=== PATIENT | male | born 1935 | race Caucasian/White ===

== ENCOUNTER → 2016-04-03 | Outpatient (CLI) | payer MEDICARE, OTHER ==
[2016-04-03 10:24] LABS: ALBUMIN 4.5 g/dL (3.4-5.0); ANION GAP 15.9 MEQ/L (3-15); PHOSPHORUS 3.3 mg/dL (2.4-4.9)
== END ==
LOC: LAB 09:47
PROVIDERS: ATTEND Internal Medicine
DX: R60.9 Edema, unspecified (principal)
CPT/HCPCS: 36415; 80069

== ENCOUNTER → 2016-05-01 | Outpatient (CLI) | payer MEDICARE, OTHER ==
[2016-05-01 14:38] LABS: ABG OXYGEN SATURATION 89 % (95-98); ABG PCO2 51 mmHg (35-45); ABG PH 7.49 (7.35-7.45); ABG PO2 53 mmHg (80-105); ARTERIAL BLOOD GAS DELIVERY Nasal Cannula
== END ==
LOC: RT 14:03
PROVIDERS: ATTEND Family Medicine
DX: J44.9 Chronic obstructive pulmonary disease, unspecified (principal)
CPT/HCPCS: 36600; 82803

== ENCOUNTER → 2016-06-17 | Outpatient (CLI) | payer MEDICARE, OTHER | LOC: EMS 23:01 | PROVIDERS: ATTEND Family Medicine | DX: Z53.20 Procedure and treatment not carried out because of patient's decision for unspecified reasons (principal) ==

== ENCOUNTER → 2016-07-18 | Outpatient (CLI) | payer MEDICARE, OTHER ==
[~2016-07-18] MED LIST: AC325T PO; ALB0.5V INH; ALBU2.5V12 INH; ALLO100T PO; AMOX-358 PO; ARFO15VI2 IH; ASCO500T7 PO; ASPI-586 PO; BUDE0.5A5 IH; CALC300T10 PO; CEFD300C PO; CYAN100088 PO; DOCU100T2 PO; DOXY100T41 PO; FERR-74 PO; FERR300L PO; FERR325T5 PO; FRSM20T PO; FURO-124 PO; FURO20TA4 PO; FURO40TA4 PO; GFN600TCR PO; HYDR-3702 PO; HYDR5SYR PO; HYOS0.1218 SL; IBUP-1096 PO; INDA1.25 PO; IPRA3AMP11 INH; KCL20TCR PO; LEVO500T16 PO; LEVO750T39 PO; LOPE2CAP PO; LORA0.5T PO; MAG30ORA PO; MAGN400O7 PO; MAGN400T26 PO; METH4TAB27 PO; METO50TA7 PO; MORP20SO PO; MTF500TCR PO; OLME1TAB5 PO; OLME40TA3 PO; ONDAN4ODT PO; POLYETHYLENE GL17 GM PO; POTA10CA2 PO; POTA10CA43 PO; PRD20T PO; PROM25TA14 PO; TRM50T PO
== END ==
LOC: EMS 06:45
DX: Z53.20 Procedure and treatment not carried out because of patient's decision for unspecified reasons (principal)

== ENCOUNTER → 2016-07-20 | Outpatient (CLI) | payer MEDICARE, OTHER | LOC: EMS 02:50 | DX: Z53.20 Procedure and treatment not carried out because of patient's decision for unspecified reasons (principal) ==

== ENCOUNTER 2016-07-21 17:08 | Inpatient (IN) | payer MEDICARE, OTHER ==
[~2016-07-21] VITALS: Ht 177.8 cm; Wt 73.1 kg
[~2016-07-21 17:08] MED LIST changes: -HYDR-3702 PO; -HYOS0.1218 SL; -LOPE2CAP PO; -LORA0.5T PO; -MORP20SO PO; -PROM25TA14 PO
--- NOTE | 2016-07-21 17:30 | NUR ---
notified [facility] [place] regarding care of patient. Walker stated patient elected hospice care on July 12 but was home health prior to that. She mentioned as of this morning plan was to go to [facility] for respite care for 5 days until permanent placement for end of life care could be arranged but that as of this afternoon patient and family changed mind and elected aggressive treatment and that he was therefore discharged from their care at that time. [place] stated patient has taken a steady decline, and has had an increase in falls. states sister is dpoa
--- NOTE | 2016-07-21 17:55 | NUR ---
Pt admitted to Rm 310 via cart accompanied by EMS. Resprs nonlabored, even on 4L NC. Pt groans with movements. Open sores noted on pt's buttocks approx 0.5cm in diameter. Excoriation noted under R scrotum approx 5cm x 4cm. According to ED nurse, EMS gave report to ED but pt came straight to floor. Report from ED nurse states that EMS attempted multiple IV sticks with no success. Dr Arango requested anesthesia be called as to not delay IV fluids. Campus Administrator contacted anesthesia. Upon EMS arrival, EMS states they attempted an IV site once but pt does not have many veins to choose from. Den with anesthesia here to initiate peripheral site. 20g initiated in [facility] on first attempt. Den states there aren't many other options for a site. Will continue to monitor.
[2016-07-21 18:09] VITALS: BP 117/53
[2016-07-21 18:10] VITALS: BP 117/53
[2016-07-21] MEDS ORDERED: ACETAMINOPHEN 325 MG TAB (TYLENOL) PO PRN (18:20)
[2016-07-21] MEDS ORDERED: POLYETHYLENE GLYCOL 17 GM (MIRALAX) PACKET PO PRN (18:20)
[2016-07-21] MEDS ORDERED: LOPERAMIDE 2 MG/15 ML PO PRN (18:20)
--- NOTE | 2016-07-21 18:46 | NUR ---
Dr Arango discussing plan of care with patient's two daughters who just arrived, Seema and Katlin.
--- NOTE | 2016-07-21 19:00 | NUR ---
received verbal order from Dr Shivam Arango to place central line for blood infusion, antibiotics, and fluids. a second peripheral line was unable to be placed at this time.
[2016-07-21 19:12] LABS: MEAN CORPUSCULAR HGB CONC 31.8 g/dL (31.0-37.0); MEAN PLATELET VOLUME 9.1 FL (6.0-9.5); PLATELET COUNT 679 10^3uL (150-450)
--- NOTE | 2016-07-21 19:20 | NUR ---
obtained consent from patient as well as from daughters to place central line at this time. josefina bartholomew crna notified.
[2016-07-21 19:24] LABS: ANION GAP 28.1 MEQ/L (3-15)
[2016-07-21 19:25] LABS: MEAN CORPUSCULAR HEMOGLOBIN 24.4 PG (26.0-34.0); WHITE BLOOD COUNT 38.29 10^3uL (4.0-11.0)
[2016-07-21 19:26] LABS: MEAN CORPUSCULAR VOLUME 77 FL (80-100)
[2016-07-21 19:28] LABS: ANISOCYTOSIS SLIGHT; MICROCYTOSIS SLIGHT; POLYCHROMASIA SLIGHT; RBC MORPH SEE REFERENCE (NORMAL)
[2016-07-21] MEDS: ALBUTEROL/IPRATROPIUM 3MG-0.5MG/3ML (DUONEB) NEB VIAL INH SCH (19:28)
[2016-07-21 19:29] LABS: BAND NEUTROPHILS % 12 % (0-6); EOSINOPHILS % 0 % (0-4); LYMPHOCYTES # 1.2 #; MONOCYTES # 0.8 #; MONOCYTES % 2 % (3-11); SEGMENTED NEUTROPHILS % 80 % (51-67); TOTAL CELLS COUNTED 100
[2016-07-21 19:30] VITALS: BP 108/52
--- NOTE | 2016-07-21 19:31 | NUR ---
Pt found lying in bed on 4 l/min NC, SPO2 88%, HR 60, RR 14 and mildly labored at this time. BS have clear upper lobes and diminished bases bilaterally. Duoneb given via SVN/MASK tolerated well with BS unchanged post Tx. O2 titrated to 6 l/min HFNC with humidity.
--- NOTE | 2016-07-21 20:00 | NUR ---
Pt says he needs to have a bowel movement. Pt assisted on to the bed arias.
--- NOTE | 2016-07-21 20:03 | History and Physical (E) ---
History & Physical PCP: James Ortega MD CC DEHYDRATION HPI Patient was on hospice for 2 weeks and now has left hospice.He has end stage COPD; lung cancer currently untreated;and has not been eating or drinking for several days. He is quite anemic with a current hemoglobin of 6.2. PMH Non small cell lung cancer HCAP END STAGE COPD PNEUMONIA JANUARY 2016 HYPERTENSION Gout Diabetes Mellitus Prostate Cancer PSH Lung biopsy chest tube 02/2016 right carpal tunnel surgery Forehead and eyelid surgery 10 years ago Colonoscopy ALLERGIES: NKDA HOME MEDICATIONS: Please see list at end of report. FH SH ROS CONSTITUTION: Denies weight loss or gain. Denies fever or chills. HEENT: No change in vision or hearing. No sores in mouth, sore throat. CV: No chest pain, palpitations. PULM: No cough, BUT MARKED shortness of breath, difficulty breathing. GI: No upset stomach, nausea, vomiting, constipation, or diarrhea. No blood in stool. : No dysuria. No blood in urine. MS: No new muscle or joint aches and pains. NEURO: No numbness or tingling. No weakness. INTEG: No rashes, lesions, or sores. ENDO: No heat or cold intolerance. No polydipsia or polyuria. HEME/LYMPH: No easy bruising or bleeding. No swollen glands. PSYCH: No change in mood or behavior. OBJECTIVE GEN: Awake, alert, oriented, weak HEENT: EOMI, PERRL, dry oral mucosa. CV: RRR S1 S2 normal with no murmur LUNGS: crackles in bases;not a good inspiratory effort ABD: Soft, NT/ND with hypoactive bowel sounds. EXTR: No C/C/E. Normal peripheral pulses. INTEG: No rash. NEURO: No focal motor neuro deficit. Weight: 69.3 kg LABS hgb-6.2 ;creat-4.43 ;bun 210 ;gfr -15.6 MICRO n/a IMAGING n/a ASSESSMENT Dehydration;end stage COPD;non small cell lung cancer; anemia ; acute kidney failure ;diabetes mellitus PLAN Admit to floor ;cxr;antibiotics; breathing treatments ;consider dialysis. Allergies/Home Medications Allergies: Coded Allergies: No Known Drug Allergies (Unverified , 03/24/16) Reported Home Medications Scheduled Albuterol/Ipratropium (Duoneb 3mg-0.5mg/3ml) 3 ML INH QID Allopurinol (Allopurinol) 100 MG PO BID (Reported) Amoxicillin/Clavulanate Potassium (Augmentin 875mg/125mg) 1 EACH PO BID Ascorbic Acid (Ascorbic Acid) 500 MG PO BID (Reported) Aspirin (Aspir 81) 81 MG PO DAILY (Reported) Cyanocobalamin (Vitamin B-12) (B-12) 2,000 MCG PO DAILY (Reported) Ferrous Sulfate (Ferrous Sulfate) 325 MG PO BID Furosemide (Lasix) 40 MG PO BID@0900,1400 Indapamide (Indapamide) 1.25 MG PO DAILY (Reported) Magnesium Oxide (Mag-Oxide) 400 MG PO DAILY (Reported) Metformin HCl (Metformin HCl ER) 1,000 MG PO BID (Reported) Metoprolol Succinate (Toprol XL) 50 MG PO DAILY Polyethylene Glycol 3350 (Polyethylene Glycol 3350) 17 GM PO DAILY Potassium Chloride (Klor-Con M20) 20 MEQ PO DAILY Scheduled PRN Acetaminophen (Acetaminophen) 650 MG PO Q6H PRN PRN PAIN Albuterol (Proventil 0.5%) 2.5 MG INH Q4H PRN PRN DYSPNEA Calcium Carbonate (Tums) 300 MG PO Q8H PRN PRN DYSPEPSIA Docusate Sodium (Docusate Sodium) 100 MG PO BID PRN PRN CONSTIPATION Mag Hydrox/Al Hydrox/Simeth (Mag-Al Plus -Simethicone [id number]/5ml) 30 ML PO Q6H PRN PRN DYSPEPSIA Magnesium Hydroxide (Milk of Magnesia 400mg/5ml) 30 ML PO DAILY PRN PRN CONSTIPATION Ondansetron HCl (Zofran ODT) 4 MG PO Q6HR PRN PRN NAUSEA/VOMITING Tramadol HCl (Tramadol HCl) 50 MG PO Q6H PRN PRN PAIN Copies to: End of Report . BRIAN FUENTES DO Jul 21, 2016 20:03
--- NOTE | 2016-07-21 20:05 | NUR ---
Pt has no results and would like to stand at bedside for a minute. This nurse and ADRIAN Claros assist pt to side of bed. Pt continues to strain and attempt to have a BM.
--- NOTE | 2016-07-21 20:06 | NUR ---
Pt sits down on bed and goes unresponsive. Pt laid down on bed and sternal rub performed. Pt opens eyes, looks around blankly. Follows the sound of my voice when his name is called. BP119/42, HR 58, O2 sat 98% on 6L. Multiple staff in room.
--- NOTE | 2016-07-21 20:10 | NUR ---
called [facility] and requested patient medication reconciliation for continuation of care. edward glsas stated it would be faxed.
--- NOTE | 2016-07-21 20:15 | NUR ---
Pt more responsive. C/o pain "all over." Does not want pain medication. BP 106/46, HR 95, o2 sat 99% on 6L.
[2016-07-21] MEDS ORDERED: NS IV 500 ML 500 ML IV SCH (20:20)
[2016-07-21] MEDS ORDERED: cefTRIAXone SODIUM 2 GM in SODIUM CHLORIDE 50 ML IV ONE (20:20)
[2016-07-21] MEDS ORDERED: SODIUM CHLORIDE 50 ML IV ONE (20:23)
[2016-07-21] MEDS ORDERED: cefTRIAXone 2 GM (ROCEPHIN) VIAL ONE (20:23)
[2016-07-21] MEDS: HYDROcodone/APAP 5 MG/325 MG (NORCO) TAB PO PRN (20:28)
[2016-07-21] MEDS ORDERED: MORP20SO PO (20:40)
[2016-07-21] MEDS ORDERED: HYDR-3702 PO (20:49)
[2016-07-21] MEDS ORDERED: PROM25TA14 PO (20:49)
[2016-07-21] MEDS ORDERED: LORA0.5T PO (20:49)
[2016-07-21] MEDS ORDERED: HYOS0.1218 SL (20:49)
[2016-07-21] MEDS ORDERED: LOPE2CAP PO (20:49)
[2016-07-21] MEDS ORDERED: HYOSCYAMINE 0.125 MG (LEVSIN) TABLET SL PRN (20:55)
[2016-07-21] MEDS ORDERED: morphine ORAL CONC 20 MG/ML (ROXANOL) 1 ML SYRINGE PO SCH (21:00)
[2016-07-21] MEDS ORDERED: LORazepam 0.5 MG (ATIVAN) TABLET PO SCH (21:00)
[2016-07-21] MEDS ORDERED: LORazepam 0.5 MG (ATIVAN) TABLET PO PRN (21:05)
[2016-07-21] MEDS ORDERED: SODIUM CHLORIDE 250 ML ONE ×2 (21:34→22:50)
[2016-07-21] MEDS ORDERED: AZITHROMYCIN 500 MG (ZITHROMAX) VIAL IV ONE (21:34)
[2016-07-21] MEDS: AZITHROMYCIN VIAL 500 MG in SODIUM CHLORIDE 250 ML IV SCH (21:40)
[2016-07-21] MEDS ORDERED: PROMETHAZINE 25 MG (PHENERGAN) TAB PO PRN (21:45)
--- NOTE | 2016-07-21 21:45 | NUR ---
had conversation with patient daughters regarding current plan of care for patient. discussed end of life care with daughters. both daughters in agreement with each other that their dad is dying and that they know it is close to the end but that they are following his wishes at this time. they state they think he is scared of dying. provided education regarding end of life and encouraged both daughters to tell their dad that it is ok to if they haven't already and if that was something they believed. offered to assist with facilitating that conversation. they were both very receptive to end of life discussion and stated "we didnt even think to do that." encouraged patients daughters to talk to one another regarding decision making if something were to happen to their father and encouraged them to contact any other immediate relatives for support if needed. relayed this information to saad thomas rn.
--- NOTE | 2016-07-21 22:00 | NUR ---
PAT Crenshaw, here to place central line.
--- NOTE | 2016-07-21 22:45 | NUR ---
Central line placed to right internal jugular via Den Flores CRNA. Pt tolerates procedure without difficulty.
--- NOTE | 2016-07-21 22:49 | NUR ---
PAT Crenshaw okays central line use per chest xray.
--- NOTE | 2016-07-21 23:10 | NUR ---
Blood verified with Shasta Renee RN. Transfusion begun at 100 ml/hr.
[2016-07-21 23:14] VITALS: BP_SYST 101; BP_SYST 105; BP_DIAS 35; BP_DIAS 47
[2016-07-21 23:19] VITALS: BP 109/53
[2016-07-21 23:24] VITALS: BP 113/46
--- NOTE | 2016-07-21 23:25 | NUR ---
Pt continues tolerating blood transfusion well. Increased rate to 125 ml/hr.
[2016-07-22] VITALS (17 sets, daily range): BP systolic 105–145; BP diastolic 39–88
--- NOTE | 2016-07-22 01:13 | NUR ---
Transfusion completed at this time. Pt tolerates well.
[2016-07-22] MEDS: ALBUTEROL/IPRATROPIUM 3MG-0.5MG/3ML (DUONEB) NEB VIAL INH SCH ×4 (01:25→19:20)
--- NOTE | 2016-07-22 01:25 | NUR ---
Second unit of blood initiated at this time. Verified with Shasta Renee RN. Transfusion initial rate at 100 ml/hr.
[2016-07-22 01:39] LABS: BILIRUBIN,URINE Negative (Negative); CLARITY,URINE Clear; COLOR,URINE Yellow; GLUCOSE, URINE (UA) Negative (Negative); LEUKOCYTE ESTERASE ,URINE Negative (Negative); PH,URINE 5.5 (5.0 - 8.0); UROBILINOGEN,URINE 0.2 mg/dL (0.2-1.0)
--- NOTE | 2016-07-22 01:41 | NUR ---
Increased transfusion rate to 125 ml/hr
[2016-07-22 01:56] LABS: URINE CENTRIFUGED VOLUME 12 mL
[2016-07-22 02:01] LABS: RBC,URINE 0-2 /HPF
--- NOTE | 2016-07-22 02:50 | NUR ---
Assisted pt to BSC. Pt able to have small BM at this time. "I still feel like there's some in there."
--- NOTE | 2016-07-22 02:55 | NUR ---
PRN miralax provided per pt request.
[2016-07-22] MEDS: HYDROcodone/APAP 5 MG/325 MG (NORCO) TAB PO PRN ×2 (03:24→09:08)
--- NOTE | 2016-07-22 04:10 | NUR ---
second unit of blood finishes at this time.
[2016-07-22 05:39] LABS: MEAN CORPUSCULAR HGB CONC 32.8 g/dL (31.0-37.0); MEAN PLATELET VOLUME 8.8 FL (6.0-9.5); PLATELET COUNT 543 10^3uL (150-450); WHITE BLOOD COUNT 28.47 10^3uL (4.0-11.0)
[2016-07-22 05:43] LABS: MEAN CORPUSCULAR HEMOGLOBIN 25.4 PG (26.0-34.0); MEAN CORPUSCULAR VOLUME 78 FL (80-100)
[2016-07-22 06:28] LABS: BAND NEUTROPHILS % 3 % (0-6); LYMPHOCYTES # 1.4 #; MONOCYTES # 2.2 #; MONOCYTES % 8 % (3-11)
[2016-07-22 06:29] LABS: ANISOCYTOSIS MARKED; HYPOCHROMASIA SLIGHT; MICROCYTOSIS MODERATE; POIKILOCYTOSIS MODERATE; POLYCHROMASIA SLIGHT; SEGMENTED NEUTROPHILS % 83 % (51-67); TOTAL CELLS COUNTED 100
[2016-07-22 06:30] LABS: ACANTHOCYTES SLIGHT
--- NOTE | 2016-07-22 06:36 | NUR ---
Pt has been resting quietly with eyes closed for a couple hours now. PRN norco provided x2 this shift. SL intact. Central line patent; good blood return. Cont on 4L oxygen per hi-flow nasal cannula.
--- NOTE | 2016-07-22 07:18 | NUR ---
Pt found lying in bed on 4 l/min NC HFNC, SPO2 94%, HR 73, RR 14 and non labored at this time. BS are diminished throughout all lung gentile before and after Duoneb via SVN/MASK which was tolerated well.
[2016-07-22 07:39] LABS: ANION GAP 22.5 MEQ/L (3-15)
[2016-07-22 07:43] LABS: RBC MORPH SEE REFERENCE (NORMAL)
--- NOTE | 2016-07-22 08:13 | Diagnostic Imaging Report ---
INDICATION: Central line placement Portable chest 9:41 PM Right jugular central line tip projects over the right innominate vein. There is a 2 cm pulmonary nodule left mid lateral lung as well as some pleural thickening in the left lower lateral chest adjacent to this. The right lung is clear. There is no effusion or pneumothorax. There appears to be some emphysematous change in the lungs. IMPRESSION: Pleural thickening and pulmonary nodule left lung unchanged from previous day. Dictated by: Dictated on workstation # [id number]
--- NOTE | 2016-07-22 08:15 | Diagnostic Imaging Report ---
INDICATION: Elevated white blood cell count. COMPARISON: 03/27/2016. FINDINGS: A left lung nodule measuring 2.8 cm is present and is likely increased in size when compared to CT from January 2016. Air trapping and COPD chronic. No effusion or pneumothorax. IMPRESSION: Increasing size of left upper lobe lung mass laterally measuring at least 2.7 cm today, on earlier CT it was about 1.6 cm. COPD. No other change. Dictated by: Dictated on workstation # [id number]
--- NOTE | 2016-07-22 11:52 | Progress Note-A/P (E) ---
Progress Note Subjective: Mr Fragoso has no new complaints today.He does say he wants to go the bathroom.He denies chest and abdominal pain. He has continuing shortness of air,He denies pain in his legs. heart shows a rrr lungs-diminished breath sounds with scattered crackles H and H 7.8/ 23.8 creat.-4.17 ; Ahs521 ; WBC- 28,000+ ;Bnp- 763 ; K+--2.9; Estimated GFR -16.7 abdomen aoft with active bowel sounds extremities show no c/c/ but a trace of edema Assessment-end stage COPD Non small cell left lung cancer Anemia Hypokalemia Acute kidney failure Leukocytosis Plan :Continue present treatment and add oral kcl. Objective: Vital Signs Date Time Temp Pulse Resp B/P Pulse Ox O2 Delivery O2 Flow Rate FiO2 07/22/16 11:00 96.0 61 16 109/41 95 Nasal cannula 07/22/16 04:17 4L.00 I & O Past 24 hrs 07/22/16 07:00 Intake Total 2296 ml Output Total 400 ml Balance 1896 ml Intake Oral 322 ml IV Total 1362 ml Blood Product 612 ml Output Urine Total 400 ml # Bowel Movements 2 Physical Exam General--Awake and alert. No distress. HEENT--Normocephalic. MMM in oral cavity. Lungs--Clear to auscultation bilaterally. Nonlabored respirations. Heart--RRR. No murmurs. Abdomen--Normal bowel sounds. Soft. Nondistended. Nontender. Extremities--No edema. Past 24 hour Lab Results 07/21/16 19:02 07/22/16 05:10 Laboratory Results Past 24 Hrs 07/21/16 19:02: Absolute Band Neutrophils 4.6, Anion Gap 28.1, Anisocytosis Slight, BUN/ Creatinine Ratio 47, Band Neutrophils % 12, Basophils # (Auto) , Basophils # ( Manual) 0.0, Basophils % (Manual) 0, Basophils (%) (Auto) , Blood Morphology Comment See reference, Blood Urea Nitrogen 210, Calcium Level 9.9, Carbon Dioxide Level 19, Chloride Level 94, Creatinine 4.43, Differential Total Cells Counted 100, Eosinophils # 0.0, Eosinophils # (Auto) , Eosinophils % (Manual) 0 , Eosinophils (%) (Auto) , Estimat Glomerular Filtration Rate 15.6, Estimated GFR (Non- 12.9, Glucose Level 133, Hematocrit 19.50, Hemoglobin 6.2, Lymphocytes # 1.2, Lymphocytes # (Auto) , Lymphocytes % (Manual) 3, Lymphocytes (%) (Auto) , Mean Corpuscular Hemoglobin 24.4, Mean Corpuscular Hemoglobin Concent 31.8, Mean Corpuscular Volume 77, Mean Platelet Volume 9.1, Metamyelocytes % 3, Microcytosis Slight, Monocytes # 0.8, Monocytes # (Auto) , Monocytes % (Manual) 2, Monocytes (%) (Auto) , Neutrophils # 30.6, Neutrophils # (Auto) , Neutrophils (%) (Auto) , Platelet Count 679, Polychromasia Slight, Potassium Level 3.4, Red Blood Count 2.54, Red Cell Distribution Width 18.9, Schistocytes Slight, Segmented Neutrophils % 80, Sodium Level 137, White Blood Count 38.29 07/21/16 21:00: C-Reactive Protein 3.10, Lactic Acid Level 2.5, EG-Hfl-V-Type Natriuretic Peptide 763 07/22/16 00:15: Urine Bacteria None seen, Urine Bilirubin Negative, Urine Blood Negative, Urine Clarity Clear, Urine Collection Type Clean catch, Urine Color Yellow, Urine Glucose (UA) Negative, Urine Hyaline Casts Rare, Urine Ketones Negative, Urine Leukocyte Esterase Negative, Urine Microscopic RBC 0-2, Urine Nitrite Negative, Urine Protein Trace, Urine Renal Epithelial Cells 0-2, Urine Specific [place] 1.010, Urine Squamous Epithelial Cells 10-20, Urine Urobilinogen 0.2, Urine WBC 2-5, Urine pH 5.5, Volume Urine Centrifuged 12 ml 07/22/16 05:10: Absolute Band Neutrophils 0.8, Anion Gap 22.5, Anisocytosis Marked, BUN/ Creatinine Ratio 45, Band Neutrophils % 3, Basophils # (Auto) , Basophils (%) ( Auto) , Blood Morphology Comment See reference, Blood Urea Nitrogen 187, Calcium Level 9.2, Carbon Dioxide Level 21, Chloride Level 98, Creatinine 4.17, Differential Total Cells Counted 100, Eosinophils # (Auto) , Eosinophils (%) ( Auto) , Estimat Glomerular Filtration Rate 16.7, Estimated GFR (Non- 13.8, Glucose Level 112, Hematocrit 23.80, Hemoglobin 7.8, Lymphocytes # 1.4, Lymphocytes # (Auto) , Lymphocytes % (Manual) 5, Lymphocytes (%) (Auto) , Mean Corpuscular Hemoglobin 25.4, Mean Corpuscular Hemoglobin Concent 32.8, Mean Corpuscular Volume 78, Mean Platelet Volume 8.8, Microcytosis Moderate, Monocytes # 2.2, Monocytes # (Auto) , Monocytes % (Manual) 8, Monocytes (%) ( Auto) , Neutrophils # 23.6, Neutrophils # (Auto) , Neutrophils (%) (Auto) , Platelet Count 543, Polychromasia Slight, Potassium Level 2.9, Red Blood Count 3.07, Red Cell Distribution Width 19.1, Segmented Neutrophils % 83, Sodium Level 139, White Blood Count 28.47, Acanthocytes Slight, Basophilic Stippling Moderate, Hypochromasia Slight, Myelocytes 1, Poikilocytosis Moderate, Smear Scan Assessment/Plan Diet- Code Status- DVT prophylaxis- Disposition- BRIAN FUENTES DO Jul 22, 2016 11:52
[2016-07-22] MEDS ORDERED: POTASSIUM CHLORIDE ER 10 MEQ CAPSULE PO SCH (12:00)
--- NOTE | 2016-07-22 12:15 | NUR ---
Patient has thrown up about 20 mls of watery brown emesis. C/O continued nausea.
[2016-07-22] MEDS: ONDANSETRON 2 MG/ML (Z0FRAN) 2 ML VIAL IV PRN (13:00)
--- NOTE | 2016-07-22 13:00 | NUR ---
Large amount of brown watery emesis. Zofran given.
--- NOTE | 2016-07-22 13:50 | NUR ---
Bed bath given. Patient continues to have some nausea. Will report to Dr. Arango. PO meds held at this time.
--- NOTE | 2016-07-22 13:57 | NUR ---
Pt refused aerosol intervention at this time due to nausea.
--- NOTE | 2016-07-22 14:00 | NUR ---
Mepilex dressing to L and R buttocks to cover pressure ulcers.
[2016-07-22] MEDS ORDERED: PROMETHAZINE HCL INJ 12.5 MG in SODIUM CHLORIDE 25 ML IV PRN (14:15)
[2016-07-22] MEDS: HYDROmorphone 1 MG/ML (DILAUDID) SYRINGE IV PRN ×2 (14:53→20:16)
[2016-07-22] MEDS: SODIUM CHLORIDE FLUSH 10 ML SYR IV SCH ×2 (15:29→18:43)
[2016-07-22] MEDS: D5 IV SCH (15:30)
[2016-07-22] MEDS: 1/2 NS IV SCH (15:30)
[2016-07-22] MEDS: KCL IV SCH (15:30)
[2016-07-22] MEDS: PANTOPRAZOLE IV 40 MG in SODIUM CHLORIDE FLUSH 10 ML IV SCH (18:10)
[2016-07-22] MEDS ORDERED: PANTOPRAZOLE 40 MG (PROTONIX) VIAL IV ONE (18:25)
--- NOTE | 2016-07-22 18:54 | NUR ---
Has rested well this afternoon and has been relatively free from pain and is free from nausea. Protonix dose given this evening. Patient has been turned q2h and supported with pillows. Family has been here much of the day.
--- NOTE | 2016-07-22 20:00 | NUR ---
Patient resting in bed. Is awake. Turned and repositioned. Moans when being tuned. Good kelsie care given. Cleansed and patted dry lower abdominal folds, due to erythema. IV patent per Right IJ. No complications to site. Takes ice chips when offered. Oral care done. HOB elevated to 30 degrees Respirations are 12 per minute. Oxygen on at 4 liters per NC. Oxygen sat 96%. Respirations non-labored. Family left to go have Supper. Call light within reach.
--- NOTE | 2016-07-22 20:16 | NUR ---
Dilaudid 1mg administered IV for generalized discomfort. Respirations remain 12 per minute. Cheeks flushed. Afebrile.
[2016-07-22] MEDS: AZITHROMYCIN VIAL 500 MG in SODIUM CHLORIDE 250 ML IV SCH (20:17)
[2016-07-23] MEDS: ALBUTEROL/IPRATROPIUM 3MG-0.5MG/3ML (DUONEB) NEB VIAL INH SCH ×4 (01:26→19:42)
[2016-07-23] MEDS: HYDROmorphone 1 MG/ML (DILAUDID) SYRINGE IV PRN ×3 (03:26→22:52)
[2016-07-23] MEDS: 1/2 NS IV SCH (03:30)
[2016-07-23] MEDS: D5 IV SCH (03:30)
[2016-07-23] MEDS: KCL IV SCH (03:30)
[2016-07-23] MEDS: ONDANSETRON 2 MG/ML (Z0FRAN) 2 ML VIAL IV PRN (03:33)
[2016-07-23 04:00] VITALS: BP 136/55
--- NOTE | 2016-07-23 07:03 | NUR ---
Patient rested at long intervals tonight. More talkative this morning. Denies nausea. IV patent. Barrier creme applied to reddened areas between folds. Call light within reach. Takes fluids without nausea. Pleasant.
--- NOTE | 2016-07-23 07:41 | NUR ---
Pt found lying in bed on 4 l/min HFNC, SPO2 98%, HR 90, RR 10 and slightly labored at this time. Pt is lethargic and does not move but responds to my voice with head nods. BS clear and diminished before and after Duoneb via SVN. I am choosing not to titrate O2 at this time due to respiratory pattern.
--- NOTE | 2016-07-23 07:56 | NUR ---
Report received, care of pt assumed. Pt awake, states continues to have pain, rates 8/10, repositioned in bed for comfort. Oxygen at 4L/NC. IV per IJ on right side. Pt states he is hungry and is asking for breakfast tray. Call light in reach. Will round frequently for cares.
[2016-07-23 08:00] VITALS: BP 114/45
[2016-07-23 08:23] LABS: MEAN PLATELET VOLUME 8.4 FL (6.0-9.5); PLATELET COUNT 489 10^3uL (150-450); WHITE BLOOD COUNT 20.93 10^3uL (4.0-11.0)
[2016-07-23 08:24] LABS: MEAN CORPUSCULAR HEMOGLOBIN 25.9 PG (26.0-34.0); MEAN CORPUSCULAR VOLUME 78 FL (80-100)
[2016-07-23 08:33] LABS: ANION GAP 16.5 MEQ/L (3-15)
[2016-07-23 08:40] LABS: BAND NEUTROPHILS % 1 % (0-6); EOSINOPHILS % 0 % (0-4); LYMPHOCYTES # 0.6 #; MONOCYTES # 1.6 #; MONOCYTES % 8 % (3-11); SEGMENTED NEUTROPHILS % 86 % (51-67); TOTAL CELLS COUNTED 100
[2016-07-23 08:41] LABS: ANISOCYTOSIS SLIGHT; MICROCYTOSIS SLIGHT; POLYCHROMASIA SLIGHT; RBC MORPH SEE REFERENCE (NORMAL)
--- NOTE | 2016-07-23 08:52 | NUR ---
MED REC COMPLETE--current med list obtained from list provided by Hospice.
[2016-07-23] MEDS: PANTOPRAZOLE IV 40 MG in SODIUM CHLORIDE FLUSH 10 ML IV SCH (09:02)
--- NOTE | 2016-07-23 09:58 | Progress Note (E) ---
Progress Note July Mr. Fragoso has no complaints this am when I examined him. He says his pain and his vomiting are both well controlled. He denies chest pain, abdominal pain and allows that the n/c o2 is adequate.He denies significant coughing.He says his legs are not hurting. heart-rrr,without murmur lungs only a few scattered crackles abdomen-soft,bs are active extremities show no clubbing or cyanosis ,but he does have trace edema Assessment-end stage COPD Non small cell left lung cancer today's level of K+- 2.9 Anemia Hypokalemia Acute kidney failure Leukocytosis Hospice Care Self Disenrollment Plan: increase amount of KCL meq in each bag of IV fluid [D51/2 ns] ;continue other present care BRIAN FUENTES DO Jul 23, 2016 09:58
[2016-07-23] MEDS: D5 1/2 NS W/KCL 40 MEQ/L 1,000 ML IV SCH ×2 (11:21→19:26)
[2016-07-23 12:30] VITALS: BP 129/58
--- NOTE | 2016-07-23 13:45 | NUR ---
Pt found lying in bed on 4 l/min HFNC, Family members at bedside, SPO2 98%, HR 90, RR 14 and mildly labored. BS clear in upper lobes bilaterally and very diminished with rales in lower lobes bilaterally before and after Duoneb via SVN/MASK. O2 not titrated at this time due to respiratory pattern and for comfort of pt.
[2016-07-23] MEDS: HYDROcodone/APAP 5 MG/325 MG (NORCO) TAB PO PRN (14:32)
[2016-07-23] MEDS: morphine ORAL CONC 20 MG/ML (ROXANOL) 1 ML SYRINGE PO PRN (15:37)
[2016-07-23 16:00] VITALS: BP 121/52
--- NOTE | 2016-07-23 18:05 | NUR ---
Pt is asking for crackers, jello and sprite. Dr. Arango notified, orders to slowly advance diet. Family at bedside. Encouraged pt to continue to take small sips of sprite and to notify RN if nausea occurs.
[2016-07-23 19:35] VITALS: BP 111/57
[2016-07-23] MEDS: AZITHROMYCIN VIAL 500 MG in SODIUM CHLORIDE 250 ML IV SCH (19:57)
--- NOTE | 2016-07-23 22:00 | NUR ---
Resting in bed. Recently repositioned. Asking for pillow to be removed from under legs due to soreness in legs. Oxygen remains on at 4L per NC. Respirations shallow. HOB elevated 30 degrees. Skin warm and dry. Face flushed. Afebrile. Takes liquids without nausea. No concerns at this time. IV infusing at 125 cc an hour. IJ intact to right neck. Dressing to area clean and dry.No complications to site. Call light within reach.
--- NOTE | 2016-07-23 22:52 | NUR ---
Dilaudid 1mg administered per request for generalized discomfort and pain in legs and feet. Repositioned in bed. Moans when being turned. Call light within reach.
[2016-07-23 23:55] VITALS: BP 120/65
[2016-07-24] VITALS (21 sets, daily range): BP systolic 109–141; BP diastolic 52–94
[2016-07-24] MEDS: ALBUTEROL/IPRATROPIUM 3MG-0.5MG/3ML (DUONEB) NEB VIAL INH SCH ×4 (01:27→20:53)
[2016-07-24] MEDS: HYDROmorphone 1 MG/ML (DILAUDID) SYRINGE IV PRN ×3 (02:41→19:55)
--- NOTE | 2016-07-24 02:41 | NUR ---
Dilaudid 1mg administered for discomfort. Repositioned. Pillows replaced under legs and in between knees. Oxygen remains at 4 liters. Mepilex dressings x2 intact to buttocks. Respirations even and shallow. Call light within reach.
[2016-07-24] MEDS: D5 1/2 NS W/KCL 40 MEQ/L 1,000 ML IV SCH ×2 (04:58→09:45)
[2016-07-24] MEDS: morphine ORAL CONC 20 MG/ML (ROXANOL) 1 ML SYRINGE PO PRN (04:58)
--- NOTE | 2016-07-24 04:58 | NUR ---
Roxanol 5mg administered po for generalized discomfort. Patient moans when being turned. remains alert and oriented. respirations shallow, labored at times. Oxygen remains at 4 liters. Sats remain 96%. Mepilex dressings x2 to buttocks. Taking liquids without nausea. Call light within each.
[2016-07-24 06:01] LABS: MEAN CORPUSCULAR HGB CONC 31.8 g/dL (31.0-37.0); MEAN CORPUSCULAR VOLUME 80 FL (80-100); MEAN PLATELET VOLUME 8.1 FL (6.0-9.5); PLATELET COUNT 448 10^3uL (150-450); WHITE BLOOD COUNT 22.07 10^3uL (4.0-11.0)
[2016-07-24 06:35] LABS: ANION GAP 13.1 MEQ/L (3-15)
[2016-07-24 07:03] LABS: MEAN CORPUSCULAR HEMOGLOBIN 25.5 PG (26.0-34.0)
[2016-07-24 07:04] LABS: ANISOCYTOSIS MODERATE; BAND NEUTROPHILS % 2 % (0-6); EOSINOPHILS % 0 % (0-4); LYMPHOCYTES # 0.4 #; MONOCYTES % 9 % (3-11); RBC MORPH SEE REFERENCE (NORMAL); SEGMENTED NEUTROPHILS % 87 % (51-67); TOTAL CELLS COUNTED 100
[2016-07-24] MEDS: PANTOPRAZOLE IV 40 MG in SODIUM CHLORIDE FLUSH 10 ML IV SCH (08:03)
--- NOTE | 2016-07-24 08:15 | PAIN MANAGEMENT ---
Date of note: 07/21/2016 Procedure: Peripheral IV placement This is an 80-year-old male patient who presents on the third floor under the care of Dr. Shivam Arango. Anesthesia was consulted for the purpose of peripheral IV placement secondary to dehydration. The patient had been stuck multiple times per report by EMS without success. Upon arrival the site was obtained with aseptic technique with a 20-gauge IV placement in the patient's left hand x1 attempt. The site flushes easily. It was dressed and saline locked. The nurses in the room, along with the physician that will be starting fluids on him very shortly. Said it was okay to leave the line saline locked. The patient tolerated the procedure well.
--- NOTE | 2016-07-24 08:23 | PAIN MANAGEMENT ---
Date of note: 07/21/2016 Procedure: Central line placement This is an 80-year-old male patient under the care of Dr. Shivam Arango. Anesthesia was consulted for the purpose of a central line placement secondary to dehydration and renal failure and need for blood products and antibiotics. Informed consent was obtained per patient, as well as daughters. The patient came in earlier today with severe dehydration. A peripheral IV was placed earlier by anesthesia. At that point in time, they were deciding the status of the patient whether he was a full code or no code. They have designated him as a full code. At this point in time they are wishing to administer blood products, antibiotics and get some fluids on board. As stated, informed consent was obtained for an IJ central line placement. Orders for procedure verified. Medical history including allergies and medications reviewed. After informed consent was obtained, the patient was placed in Trendelenburg position. Landmarks identified and ultrasound used to identify the internal jugular and carotid artery. The site was then prepped and draped in aseptic fashion. The skin and overlying tissues localized with 5 mL of 1% lidocaine using a 25-gauge 1.5-inch needle. Negative aspiration during localization. A 23-gauge 1.5-inch needle was then used to locate central vein. The vein was then cannulated with the supplied needle and found to be non-pulsatile. The J-wire was advanced without difficulty or ectopy using Seldinger technique. The skin was then scored with #11 scalpel and the dilator was passed over the J-wire without difficulty. The dilator was removed and the catheter was passed over the J-wire to 16 cm at the skin and secured in place. It was sutured in place and dressing was placed. All lines drawn and flushed and then heparinized. The chest x-ray was reviewed with Dr. Chavis in the ER. We both concurred positive placement. The nurses were notified it was okay to use the central line as ordered. All questions were answered that the family had. The patient tolerated the procedure well.
[2016-07-24] MEDS ORDERED: SODIUM CHLORIDE 250 ML ONE (08:28)
[2016-07-24] MEDS: SODIUM CHLORIDE FLUSH 10 ML SYR IV SCH ×4 (08:30→15:50)
--- NOTE | 2016-07-24 08:55 | NUR ---
0800- Pt resting in bed, remains on 4L nc. IVF infusing as ordered at 125ml/hr. Daughter Seema just arrived. Pt feeding himself breakfast. 0853Blood infusion reaches patient at this time @100ml/hr via Triple Lumen RIJ. Baseline VS 112/58, HR 70, RR 12, O2 97%@ 4Lnc, Temp 97.5
--- NOTE | 2016-07-24 09:02 | NUR ---
NUTRITION ASSESSMENT Level 1 Patient: Addy Fragoso Age/Sex: 80/M Date Screened: 07-24-16 Weight: 152.4#/69.3 kg Height: 70 inches Primary Diagnosis: COPD, lung cancer Diet Order: soft Relevant labs: gastric occult blood (+), BUN 111, creatinine 2.80, glucose 129 Food allergies: N Nutrition Assessment Criteria Age over 80: 4 points Body Mass Index (BMI) under 19: N Admission Screening Indicates Risk? 6 points Moderate/High Risk Diagnosis: 6 points TPN or PPN: N NPO or clear liquid diet: N Serum Glucose <70 or >180: N Hgb A1c >6.7: N/A Total: 16 points Risk Screen: __ Patient at low nutritional risk based on available data; reevaluate in 5-7 days __ Patient at moderate nutritional risk based on available data; reevaluate in 3-5 days _X_ Patient at high nutritional risk; complete Nutrition Assessment within 48 hours of admission.
[2016-07-24] MEDS: HYDROcodone/APAP 5 MG/325 MG (NORCO) TAB PO PRN (09:18)
--- NOTE | 2016-07-24 09:18 | NUR ---
0908- Patient tolerating blood infusion without difficulty. Turned infusion rate up to 125ml/hr. will cont to monitor. 0918- [place] given as ordered for pain at his buttock- repositioned. Daughter Seema and patient are filling out meal menus for today and tomorrow.
--- NOTE | 2016-07-24 09:53 | NUR ---
VS remain Stable during blood infusion- Increased rate of blood infusion to 150ml/hr. Will cont to monitor. Arnoldo CHANG in room now.
[2016-07-24] MEDS ORDERED: cefTRIAXone SODIUM 1,000 MG in SODIUM CHLORIDE 50 ML IV SCH (09:55)
--- NOTE | 2016-07-24 09:56 | NUR ---
SpO2 97% on HF Nasal Cannula. BS Clear but diminished bilat pre and post tx.
[2016-07-24] MEDS ORDERED: MAGNESIUM HYDROXIDE 80MG/ML (MILK OF MAGNESIA) 30 ML UDC PO PRN (10:05)
[2016-07-24] MEDS ORDERED: DOCUSATE SODIUM 100 MG (COLACE) CAP PO PRN (10:05)
[2016-07-24] MEDS ORDERED: ALBUTEROL 0.083% NEB SOLUTION 2.5 MG/3 ML VIAL INH PRN (10:05)
--- NOTE | 2016-07-24 10:10 | Progress Note (E) ---
Progress Note SUBJECTIVE Notes, labs, imaging reviewed. Was admitted 07/21 from home. Had been on hospice but was doing poorly at home. Staff were recommending NH placement. PCP came to patient's home to evaluate and after discussion there, patient apparently asked for treatment so hospice was revoked and he was admitted for full inpatient care. Since arrival, central line has been placed. Anemia treated with blood transfusion x 2 units thus far. WBC was markedly elevated on admit 38.29 with 12% bands. Hgb quite low at 6.2. Got azithromycin and ceftriaxone 07/21. Azithromycin had been continued. Hgb remained low 07/24 so additional transfusion ordered. At bedside, patient is not very communicative but stirs to exam. Complains of aching all over. Denies chest pain. Denies cough or feeling fevered. Endorses dyspnea and noted he is on 4 L oxygen. Daughter is present. Endorses some confusion regarding trying to determine what it is her father really wants. But she acknowledges he was feeling pain and feeling unwell and just wants to feel "better." Patient does endorse appreciation for blood transfusion and does not at this time express a desire for hospice care. In fact, he is now a full code. OBJECTIVE Vital Signs Date Time Temp Pulse Resp B/P Pulse Ox O2 Delivery O2 Flow Rate FiO2 07/24/16 09:08 97.4 67 12 98 Nasal cannula 07/24/16 08:10 131/52 4L.00 I & O 07/23/16 07/24/16 Cumulative From/Thru 19:00 07:00 07/21/16 18:10 - 07/24/16 06:02 Intake Total 1776 ml 1930 ml 7832 ml Output Total 100 ml 1050 ml Balance 1676 ml 1930 ml 6782 ml GEN: Resting in bed. Stirs to exam. Appears tired. HEENT: EOMI, clear sclerae, somewhat dry oral mucosa. IJ to right side of neck. CV: irregular, S1 S2 audible without significant murmur. PULM: Diminished bases without R/R/W. ABD: Soft, diffusely and mildly tender to palpation. Active bowel sounds. EXTR: Tender to palpation of feet. Pulses intact in DP bilaterally. Radial pulses intact. INTEG: Pallor. Age related changes. NEURO: Psychomotor slowing. Lab-Past 14 Days, 35 Results 07/21/16 19:02: Absolute Band Neutrophils 4.6, Anion Gap 28.1H, Anisocytosis Slight, BUN/ Creatinine Ratio 47H, Band Neutrophils % 12H, Basophils # (Auto) , Basophils # ( Manual) 0.0, Basophils % (Manual) 0, Basophils (%) (Auto) , Blood Morphology Comment See reference, Blood Urea Nitrogen 210#H, Calcium Level 9.9, Carbon Dioxide Level 19L, Chloride Level 94L, Creatinine 4.43#*H, Differential Total Cells Counted 100, Eosinophils # 0.0, Eosinophils # (Auto) , Eosinophils % ( Manual) 0, Eosinophils (%) (Auto) , Estimat Glomerular Filtration Rate 15.6, Estimated GFR (Non- 12.9, Glucose Level 133H, Hematocrit 19.50#* L, Hemoglobin 6.2#*L, Lymphocytes # 1.2, Lymphocytes # (Auto) , Lymphocytes % ( Manual) 3L, Lymphocytes (%) (Auto) , Mean Corpuscular Hemoglobin 24.4L, Mean Corpuscular Hemoglobin Concent 31.8, Mean Corpuscular Volume 77L, Mean Platelet Volume 9.1, Metamyelocytes % 3H, Microcytosis Slight, Monocytes # 0.8, Monocytes # (Auto) , Monocytes % (Manual) 2L, Monocytes (%) (Auto) , Neutrophils # 30.6, Neutrophils # (Auto) , Neutrophils (%) (Auto) , Platelet Count 679#H, Polychromasia Slight, Potassium Level 3.4L, Red Blood Count 2.54L, Red Cell Distribution Width 18.9H, Schistocytes Slight, Segmented Neutrophils % 80H, Sodium Level 137, White Blood Count 38.29*H 07/21/16 21:00: C-Reactive Protein 3.10H, Lactic Acid Level 2.5H, PA-Mhb-F-Type Natriuretic Peptide 763H 07/22/16 00:15: Urine Bacteria None seen, Urine Bilirubin Negative, Urine Blood Negative, Urine Clarity Clear, Urine Collection Type Clean catch, Urine Color Yellow, Urine Glucose (UA) Negative, Urine Hyaline Casts Rare, Urine Ketones Negative, Urine Leukocyte Esterase Negative, Urine Microscopic RBC 0-2, Urine Nitrite Negative, Urine Protein TraceH, Urine Renal Epithelial Cells 0-2, Urine Specific [place] 1.010, Urine Squamous Epithelial Cells 10-20, Urine Urobilinogen 0.2, Urine WBC 2-5, Urine pH 5.5, Volume Urine Centrifuged 12 ml 07/22/16 05:10: Absolute Band Neutrophils 0.8, Anion Gap 22.5H, Anisocytosis Marked, BUN/ Creatinine Ratio 45H, Band Neutrophils % 3, Basophils # (Auto) , Basophils (%) ( Auto) , Blood Morphology Comment See reference, Blood Urea Nitrogen 187H, Calcium Level 9.2, Carbon Dioxide Level 21L, Chloride Level 98, Creatinine 4.17* H, Differential Total Cells Counted 100, Eosinophils # (Auto) , Eosinophils (%) (Auto) , Estimat Glomerular Filtration Rate 16.7, Estimated GFR (Non- 13.8, Glucose Level 112H, Hematocrit 23.80L, Hemoglobin 7.8L, Lymphocytes # 1.4, Lymphocytes # (Auto) , Lymphocytes % (Manual) 5L, Lymphocytes (%) (Auto) , Mean Corpuscular Hemoglobin 25.4L, Mean Corpuscular Hemoglobin Concent 32.8, Mean Corpuscular Volume 78L, Mean Platelet Volume 8.8, Microcytosis Moderate, Monocytes # 2.2, Monocytes # (Auto) , Monocytes % (Manual ) 8, Monocytes (%) (Auto) , Neutrophils # 23.6, Neutrophils # (Auto) , Neutrophils (%) (Auto) , Platelet Count 543H, Polychromasia Slight, Potassium Level 2.9L, Red Blood Count 3.07L, Red Cell Distribution Width 19.1H, Segmented Neutrophils % 83H, Sodium Level 139, White Blood Count 28.47H, Acanthocytes Slight, Basophilic Stippling Moderate, Hypochromasia Slight, Myelocytes 1, Poikilocytosis Moderate, Smear Scan 07/22/16 12:20: Gastric Fluid Occult Blood PositiveH 07/23/16 08:15: Absolute Band Neutrophils 0.2, Anion Gap 16.5H, Anisocytosis Slight, BUN/ Creatinine Ratio 41H, Band Neutrophils % 1, Basophils # (Auto) , Basophils # ( Manual) 0.0, Basophils % (Manual) 0, Basophils (%) (Auto) , Blood Morphology Comment See reference, Blood Urea Nitrogen 148H, Calcium Level 9.7, Carbon Dioxide Level 25, Chloride Level 107, Creatinine 3.57H, Differential Total Cells Counted 100, Eosinophils # 0.0, Eosinophils # (Auto) , Eosinophils % ( Manual) 0, Eosinophils (%) (Auto) , Estimat Glomerular Filtration Rate 20.0, Estimated GFR (Non- 16.5, Glucose Level 123H, Hematocrit 22.70L , Hemoglobin 7.5L, Lymphocytes # 0.6, Lymphocytes # (Auto) , Lymphocytes % ( Manual) 3L, Lymphocytes (%) (Auto) , Mean Corpuscular Hemoglobin 25.9L, Mean Corpuscular Hemoglobin Concent 33.0, Mean Corpuscular Volume 78L, Mean Platelet Volume 8.4, Metamyelocytes % 2H, Microcytosis Slight, Monocytes # 1.6, Monocytes # (Auto) , Monocytes % (Manual) 8, Monocytes (%) (Auto) , Neutrophils # 18.0, Neutrophils # (Auto) , Neutrophils (%) (Auto) , Platelet Count 489H, Polychromasia Slight, Potassium Level 2.9L, Red Blood Count 2.90L, Red Cell Distribution Width 19.4H, Segmented Neutrophils % 86H, Sodium Level 146#, White Blood Count 20.93H 07/24/16 05:40: Absolute Band Neutrophils 0.4, Anion Gap 13.1, Anisocytosis Moderate, BUN/ Creatinine Ratio 40H, Band Neutrophils % 2, Basophils # (Auto) , Basophils # ( Manual) 0.0, Basophils % (Manual) 0, Basophils (%) (Auto) , Blood Morphology Comment See reference, Blood Urea Nitrogen 111H, Calcium Level 10.0, Carbon Dioxide Level 25, Chloride Level 110H, Creatinine 2.80H, Differential Total Cells Counted 100, Eosinophils # 0.0, Eosinophils # (Auto) , Eosinophils % ( Manual) 0, Eosinophils (%) (Auto) , Estimat Glomerular Filtration Rate 26.5, Estimated GFR (Non- 21.9, Glucose Level 129H, Hematocrit 21.70L , Hemoglobin 6.9*L, Lymphocytes # 0.4, Lymphocytes # (Auto) , Lymphocytes % ( Manual) 2L, Lymphocytes (%) (Auto) , Mean Corpuscular Hemoglobin 25.5L, Mean Corpuscular Hemoglobin Concent 31.8, Mean Corpuscular Volume 80, Mean Platelet Volume 8.1, Monocytes # 2.0, Monocytes # (Auto) , Monocytes % (Manual) 9, Monocytes (%) (Auto) , Neutrophils # 19.2, Neutrophils # (Auto) , Neutrophils (% ) (Auto) , Platelet Count 448, Potassium Level 3.7#, Red Blood Count 2.70L, Red Cell Distribution Width 19.7H, Segmented Neutrophils % 87H, Sodium Level 144, White Blood Count 22.07H MICRO 07/21 Blood culture Negative to date IMAGING 07/21/16 CHEST 1 VIEW, [facility] ONLY* INDICATION: Elevated white blood cell count. COMPARISON: 03/27/2016. FINDINGS: A left lung nodule measuring 2.8 cm is present and is likely increased in size when compared to CT from January 2016. Air trapping and COPD chronic. No effusion or pneumothorax. IMPRESSION: Increasing size of left upper lobe lung mass laterally measuring at least 2.7 cm today, on earlier CT it was about 1.6 cm. COPD. No other change. 07/21/16 CHEST 1 VIEW, AP/PA ONLY* INDICATION: Central line placement Portable chest 9:41 PM Right jugular central line tip projects over the right innominate vein. There is a 2 cm pulmonary nodule left mid lateral lung as well as some pleural thickening in the left lower lateral chest adjacent to this. The right lung is clear. There is no effusion or pneumothorax. There appears to be some emphysematous change in the lungs. IMPRESSION: Pleural thickening and pulmonary nodule left lung unchanged from previous day. ASSESSMENT Addy Fragoso is a 80 year old male admitted from home 07/24 with SIRS and probable sepsis though source on admit was uncertain. He met criteria on admit with HR > 90 and leukocytosis. He had acute on chronic hypoxic respiratory failure as well. He has underlying lung cancer with a primary pulmonary nodule in the left lung that has grown since prior CT scan 03/2016. He had marked anemia on admit. He has numerous chronic medical problems. Prior to this admit he had been on home hospice service but he revoked this. PLAN * SIRS, probable sepsis: Source of infection uncertain. Blood culture negative to date. CXR less consistent with pneumonia. Got ceftriaxone and azithromycin empirically on admit. Continued. Of note, he had bacteremia 03/2016 with Staph epidermidis that had some drug resistances. If diarrhea noted, check for C diff. * Acute on Chronic Hypoxic Respiratory Failure: Oxygen protocol. IS. * Iron Deficiency Anemia: Hgb on admit 6.2. Stool positive for occult blood. Got 2 units on admit. Additional 2 units 07/24. Transfuse for Hgb < 8. * COPD with Acute Exacerbation: No apparent pneumonia on CXR. Could be bronchitis. Sputum culture if able. Duoneb scheduled. Albuterol PRN. * Non-Small Cell Lung Cancer: On the basis of biopsy 02/15. Has declined further workup or treatment for this. Had been on hospice for two weeks prior to this admit, but he has since revoked that. Nodule growing in size compared to CT scan from March 2016. For now, observe. * Pain: Hydrocodone/acetaminophen, hydromorphone. * F/E/N: Soft diet. Stopped IVF 07/24. Right IJ central line. * Prophylaxis: SCDs * Code Status: Full * Dispo: Inpatient. Had been on hospice prior to this admit. CHRONIC ISSUES * Gout: Off allopurinol. * Diabetes Mellitus Type II: A1C 5.8 on prior admit. Metformin on hold. Sliding scale. * HTN: Indapamide, losartan, metoprolol * Prostate Cancer: S/P radiation. Observe. * Constipation: Bowel regimen * Pulmonary Hypertension: Oxygen * GERD: pantoprazole ALEAH BARRIENTOS MD Jul 24, 2016 10:10
[2016-07-24] MEDS: PANTOPRAZOLE 40 MG (PROTONIX) TAB PO SCH (10:55)
--- NOTE | 2016-07-24 11:03 | NUR ---
@1053- VSS at this time. @1103- Blood infusion complete- line flushed. Pt tolerated infusion without difficulty.
--- NOTE | 2016-07-24 11:10 | NUR ---
Blood infusion started at this time at 100ml/hr. Will cont to monitor.
--- NOTE | 2016-07-24 11:15 | NUR ---
Noted that heart rate is fluctuating from 67-72 regular to 120-130s in short intervals. Will notify Dr. Arteaga Addendum: 07/24/16 at 1124 by Jazz Torres RN Toma Hensley RN notified Dr. Arteaga of HR - no new orders-
--- NOTE | 2016-07-24 11:25 | NUR ---
Visited with Pt. daughter, Seema, regarding establishing DPOA for Pt. YANY reviewed the DPOA and Living Will documents with Seema. Seema will review the forms with Pt. YANY asked them to contact YANY today when they were ready to sign the forms.
--- NOTE | 2016-07-24 11:35 | NUR ---
Rate of blood infusion increased to 125ml/hr.
--- NOTE | 2016-07-24 12:10 | NUR ---
Pt resting in bed after being repositioned- states he is more comfortable after having IV Dilaudid at 1130- HR continues to be irregular- Rate between 52- 123 bpm per O2 sats monitor, while at bedside. Pt denies chest discomfort/palpitations. Blood infusing without difficulty. Daughter at bedside- states she thinks he look more comfortable. Addendum: 07/24/16 at 1213 by Jazz Torres RN Amended: Links added.
--- NOTE | 2016-07-24 13:27 | NUR ---
Pt instructed on incentive spirometry, he achieved an average volume of about 500 ml x 5 with moderate effort.
--- NOTE | 2016-07-24 13:39 | NUR ---
Blood infusion complete at this time. Pt tolerated without difficulty.
[2016-07-24] MEDS ORDERED: DEXTROSE 50% 25 GM/50 ML SYRINGE IV PRN (13:45)
[2016-07-24] MEDS ORDERED: DEXTROSE ORAL GEL (GLUTOSE 40%) 15 GM TUBE PO PRN (13:45)
[2016-07-24] MEDS ORDERED: GLUCAGON EMERGENCY 1 MG/KIT IM PRN (13:45)
[2016-07-24] MEDS: SODIUM CHLORIDE 250 ML IV PRN (13:48)
[2016-07-24] MEDS: cefTRIAXone SODIUM 1,000 MG in SODIUM CHLORIDE 50 ML IV SCH (13:49)
--- NOTE | 2016-07-24 13:57 | NUR ---
After complete of blood infusion, blue clave changed to white port on triple lumen RIJ. Rocephin infusing as ordered at this time. Pt is resting in bed, seems comfortable and drowsy. Daughter remains at bedside.
--- NOTE | 2016-07-24 14:05 | NUR ---
MULTIDISCIPLINARY MTG/DR. ARTEAGA: Pt. admitted for SIRS/possible Sepsis due to an uncertain source. Pt. also had lung cancer that is untreated. Pt. has anemia and has received two units of blood and will receive two additional units of blood. Pt. was on hospice but Dr. Ortega assess Pt. at home and Pt. felt that he was not ready to and he didn't fully understand what hospice was. Hospice has been discontinued. Pt. is on ceftriaxone and azithromycin. Pt. has been in respiratory failure and receiving oxygen. Pt. is also receiving treatment for COPD exacerbation. Pt. reports having pain all over. He is receiving pain medication and reports the Dilaudid is helping. Pt. daughters are struggling to understand what Pt. wants are. YANY and Dr. Arteaga have discussed establishing DPOA while Pt. is still able to do so. YANY has provided daughter Seema the form.
--- NOTE | 2016-07-24 14:05 | NUR ---
Pt found lying in bed on 4 l/min HFNC, SPO2 98%, HR 111, RR 22 and mildly labored with clear and diminished BS throughout. Pt c/o stethoscope hurting his chest with minimal pressure, I did my best to no cause discomfort. Duoneb given via SVN/MASK and BS unchanged post Tx. O2 not titrated at this time due to Pt's varied respiratory pattern.
--- NOTE | 2016-07-24 14:26 | NUR ---
NUTRITION ASSESSMENT Level II Patient: Addy Fragoso Age/Sex: 80/M Date Assessed: 07-24-16 ASSESSMENT Pertinent History: Patient admitted with COPD and lunch cancer, and screened at high nutritional risk secondary to diagnoses, weight loss, skin breakdown and poor appetite/intake. PMHx includes lung cancer, end-stage COPD, pneumonia, HTN, gout, diabetes, and prostate cancer. He was on Hospice recently but discontinued it, and has requested to be a full code. Pt. had episodes of vomiting this past weekend but is improved. Pt. lives [place] [facility], and wears O2 continuously. Most recent weight available was 213# in 2015. Meds/Nutrition: D5 NS w/ KCl, Protonix Weight: 152.4#/69.3 kg Height: 70 inches Body Mass Index (BMI): 21.9 [place] Body Weight : 166#/75.4 kg % IBW: 91% GASTROINTESTINAL Appetite: poor, eating bites-50% Diet Order: soft Unintentional loss of >10 lbs. in 3 months: Yes Difficult to chew/swallow: N Diabetes: Yes Relevant Labs: gastric occult blood (+), BUN 111, creatinine 2.80, glucose 129 Calculations for Nutritional Assessment Estimated calorie needs: 28-30 kcals/kg = 1,930-2,070 kcals Estimated protein needs: 1.3-1.5 g/kg = 89-103 g./day DIAGNOSIS 1. Nutrition Diagnosis: Unintentional weight loss related to inadequate intake/catabolic disease state (cancer)/increased work of breathing as evidenced by end-stage COPD with lung cancer, 60# weight loss(28%) in the past 4 months and reports of poor appetite/intake recently on Hospice. NUTRITIONAL INTERVENTION Goal: Patient will receive meals tailored around his food preferences with the goal of enhancing quality of life in patient with end-stage COPD and cancer. Simultaneous goal, since he is a full code, is to maximize nutrition intervention to support basic life functions as much as possible. Plan: Recommend small portions with soft diet with a minimum 89 g. protein/day as calculated above. Pt.s daughter has been helping him fill out his menus. Recommend supplemental Ensure with meals, and snacks between meals to facilitate adequate kcals/protein intake. Will monitor intake for adequacy. MONITORING & EVALUATION _X_ Monitor patients menu selections _X_ Monitor patients food intake per nursing notes __ Monitor NPO/clear liquid days __ Monitor lab values __ Monitor I&O __ Other
--- NOTE | 2016-07-24 14:40 | NUR ---
Heparin locked all 3 ports of triple lumen RIJ- White and Brown ports return blood, blue port does not return blood- all 3 ports flushed without difficulty.
[2016-07-24] MEDS: INSULIN LISPRO 1 UNIT/0.01 ML (HUMALOG) DOSE SC SCH ×2 (17:14→21:00)
--- NOTE | 2016-07-24 19:55 | NUR ---
Resting in bed. Eyes closed. Arouses easily. Daughter in room and wanting dad to get pain med. Dilaudid 1mg administered IV. Patient relaxes after med given. Repositioned in bed. Oxygen remains on at 4 liters per NC. Respirations 12 per minute. No respiratory distress at this time. Call light within reach.
[2016-07-25] VITALS: BP 136/67
[2016-07-25] MEDS: HYDROmorphone 1 MG/ML (DILAUDID) SYRINGE IV PRN (01:03)
--- NOTE | 2016-07-25 01:03 | NUR ---
Dilaudid 1mg administered for discomfort in legs and generalized discomfort. Incontinent. Good kelsie care given, Scrotum pink. Mepilex dressings intact to bilateral buttocks. Moans when being turned.
[2016-07-25] MEDS: ALBUTEROL/IPRATROPIUM 3MG-0.5MG/3ML (DUONEB) NEB VIAL INH SCH ×4 (03:32→20:47)
[2016-07-25 03:53] VITALS: BP 133/76
[2016-07-25] MEDS: HYDROcodone/APAP 5 MG/325 MG (NORCO) TAB PO PRN ×3 (05:15→14:37)
--- NOTE | 2016-07-25 05:15 | NUR ---
[place] 5mg administered per patient request. Did not request Stronger pain med at this time. Taking fluids himself. Holding cup and drinking from straw. Respirations 24. States having a little trouble breathing. Respirations sl labored. Repositioned in bed. Feeling better. HOB elevated 45 degrees at the present.
[2016-07-25 06:17] LABS: MEAN CORPUSCULAR HGB CONC 32.2 g/dL (31.0-37.0); MEAN CORPUSCULAR VOLUME 82 FL (80-100); MEAN PLATELET VOLUME 8.9 FL (6.0-9.5); PLATELET COUNT 427 10^3uL (150-450); WHITE BLOOD COUNT 22.91 10^3uL (4.0-11.0)
[2016-07-25] MEDS: PANTOPRAZOLE 40 MG (PROTONIX) TAB PO SCH (06:17)
[2016-07-25 06:23] LABS: ALBUMIN 3.1 g/dL (3.4-5.0); ANION GAP 17.6 MEQ/L (3-15)
[2016-07-25 06:28] LABS: MEAN CORPUSCULAR HEMOGLOBIN 26.5 PG (26.0-34.0)
--- NOTE | 2016-07-25 06:30 | NUR ---
Rested at long intervals tonight. Appears comfortable at this time. Call light within reach. Is able to make need known.
[2016-07-25 06:43] LABS: ANISOCYTOSIS SLIGHT; BAND NEUTROPHILS % 0 % (0-6); EOSINOPHILS % 0 % (0-4); LYMPHOCYTES # 0.7 #; MONOCYTES # 3.1 #; MONOCYTES % 14 % (3-11); POIKILOCYTOSIS SLIGHT; RBC MORPH SEE REFERENCE (NORMAL); SEGMENTED NEUTROPHILS % 82 % (51-67); TOTAL CELLS COUNTED 100
[2016-07-25] MEDS: INSULIN LISPRO 1 UNIT/0.01 ML (HUMALOG) DOSE SC SCH ×4 (07:05→21:00)
[2016-07-25 08:16] VITALS: BP_SYST 109; BP_SYST 121; BP_DIAS 62; BP_DIAS 80
--- NOTE | 2016-07-25 09:41 | NUR ---
Exp wheeze R base with BS decreased before tx. Increase air movement and exp wheezing post tx. SpO2 90% on Room Air before tx. Addendum: 07/25/16 at 0948 by Arnoldo Hernandez RT Prior entry on wrong patient. SpOe 98% on 4 lpm. BS clear decreased pre and post tx.
[2016-07-25] MEDS: cefTRIAXone SODIUM 1,000 MG in SODIUM CHLORIDE 50 ML IV SCH (10:36)
[2016-07-25] MEDS: SODIUM CHLORIDE FLUSH 10 ML SYR IV SCH (10:36)
--- NOTE | 2016-07-25 11:00 | NUR ---
Right triple lumen IJ dressing changed using sterile technique per protocol. Patient tolerates well.
[2016-07-25 13:44] VITALS: BP 109/62
[2016-07-25 16:14] VITALS: BP 131/68
--- NOTE | 2016-07-25 16:38 | Progress Note (E) ---
Progress Note SUBJECTIVE Overnight, no major issues. Through the day, has had some confusion, yelling out asking to be taken to his car. Have reoriented him to time, place, situation. Vitals stable. Oxygen weaned to 3 L. WBC still elevated at 22.91. 82 % N with no bands. Chemistry stable. CRP irineo to 16.30 from 3.10 on admit. Remains on just ceftriaxone. Already completed 3-day course of azithromycin. Blood culture remains negative. No other culture results. Hgb improved to 9.7 after 4 total units transfused. Seen and examined with daughter (from [place]) in room. She provided additional history about fall at home several weeks ago. He sought no medical attention at the time but did have back pain since then. Has been pretty immobile at home, sitting in chair for many hours of the day and in addition to lower back pain, has buttocks pain. Discussed adding lido-derm for back pain. Long conversation with daughter regarding findings, plan of care, prognosis. Planning family meeting evening to discuss next steps, likely to include discharge [facility]. OBJECTIVE Vital Signs Date Time Temp Pulse Resp B/P Pulse Ox O2 Delivery O2 Flow Rate FiO2 07/25/16 13:44 97.5 90 20 109/62 96 Nasal cannula 3.00 90 I & O 07/24/16 07/25/16 Cumulative From/Thru 19:00 07:00 07/21/16 18:10 - 07/25/16 06:03 Intake Total 1113 ml 70 ml 9015 ml Output Total 1050 ml Balance 1113 ml 70 ml 7965 ml GEN: Up to chair. Tired appearing but interactive. HEENT: EOMI, clear sclerae, somewhat dry oral mucosa. IJ to right side of neck. CV: irregular, S1 S2 audible without significant murmur. PULM: Diminished bases without R/R/W. ABD: Soft, diffusely and mildly tender to palpation. Active bowel sounds. EXTR: Tender to palpation of feet. Pulses intact in DP bilaterally. Radial pulses intact. INTEG: Pallor. Age related changes. NEURO: Psychomotor slowing. Lab-Past 14 Days, 35 Results 07/21/16 19:02: Absolute Band Neutrophils 4.6, Anion Gap 28.1H, Anisocytosis Slight, BUN/ Creatinine Ratio 47H, Band Neutrophils % 12H, Basophils # (Auto) , Basophils # ( Manual) 0.0, Basophils % (Manual) 0, Basophils (%) (Auto) , Blood Morphology Comment See reference, Blood Urea Nitrogen 210#H, Calcium Level 9.9, Carbon Dioxide Level 19L, Chloride Level 94L, Creatinine 4.43#*H, Differential Total Cells Counted 100, Eosinophils # 0.0, Eosinophils # (Auto) , Eosinophils % ( Manual) 0, Eosinophils (%) (Auto) , Estimat Glomerular Filtration Rate 15.6, Estimated GFR (Non- 12.9, Glucose Level 133H, Hematocrit 19.50#* L, Hemoglobin 6.2#*L, Lymphocytes # 1.2, Lymphocytes # (Auto) , Lymphocytes % ( Manual) 3L, Lymphocytes (%) (Auto) , Mean Corpuscular Hemoglobin 24.4L, Mean Corpuscular Hemoglobin Concent 31.8, Mean Corpuscular Volume 77L, Mean Platelet Volume 9.1, Metamyelocytes % 3H, Microcytosis Slight, Monocytes # 0.8, Monocytes # (Auto) , Monocytes % (Manual) 2L, Monocytes (%) (Auto) , Neutrophils # 30.6, Neutrophils # (Auto) , Neutrophils (%) (Auto) , Platelet Count 679#H, Polychromasia Slight, Potassium Level 3.4L, Red Blood Count 2.54L, Red Cell Distribution Width 18.9H, Schistocytes Slight, Segmented Neutrophils % 80H, Sodium Level 137, White Blood Count 38.29*H 07/21/16 21:00: C-Reactive Protein 3.10H, Lactic Acid Level 2.5H, RZ-[id number]-G-Type Natriuretic Peptide 763H 07/22/16 00:15: Urine Bacteria None seen, Urine Bilirubin Negative, Urine Blood Negative, Urine Clarity Clear, Urine Collection Type Clean catch, Urine Color Yellow, Urine Glucose (UA) Negative, Urine Hyaline Casts Rare, Urine Ketones Negative, Urine Leukocyte Esterase Negative, Urine Microscopic RBC 0-2, Urine Nitrite Negative, Urine Protein TraceH, Urine Renal Epithelial Cells 0-2, Urine Specific [place] 1.010, Urine Squamous Epithelial Cells 10-20, Urine Urobilinogen 0.2, Urine WBC 2-5, Urine pH 5.5, Volume Urine Centrifuged 12 ml 07/22/16 05:10: Absolute Band Neutrophils 0.8, Anion Gap 22.5H, Anisocytosis Marked, BUN/ Creatinine Ratio 45H, Band Neutrophils % 3, Basophils # (Auto) , Basophils (%) ( Auto) , Blood Morphology Comment See reference, Blood Urea Nitrogen 187H, Calcium Level 9.2, Carbon Dioxide Level 21L, Chloride Level 98, Creatinine 4.17* H, Differential Total Cells Counted 100, Eosinophils # (Auto) , Eosinophils (%) (Auto) , Estimat Glomerular Filtration Rate 16.7, Estimated GFR (Non- 13.8, Glucose Level 112H, Hematocrit 23.80L, Hemoglobin 7.8L, Lymphocytes # 1.4, Lymphocytes # (Auto) , Lymphocytes % (Manual) 5L, Lymphocytes (%) (Auto) , Mean Corpuscular Hemoglobin 25.4L, Mean Corpuscular Hemoglobin Concent 32.8, Mean Corpuscular Volume 78L, Mean Platelet Volume 8.8, Microcytosis Moderate, Monocytes # 2.2, Monocytes # (Auto) , Monocytes % (Manual ) 8, Monocytes (%) (Auto) , Neutrophils # 23.6, Neutrophils # (Auto) , Neutrophils (%) (Auto) , Platelet Count 543H, Polychromasia Slight, Potassium Level 2.9L, Red Blood Count 3.07L, Red Cell Distribution Width 19.1H, Segmented Neutrophils % 83H, Sodium Level 139, White Blood Count 28.47H, Acanthocytes Slight, Basophilic Stippling Moderate, Hypochromasia Slight, Myelocytes 1, Poikilocytosis Moderate, Smear Scan 07/22/16 12:20: Gastric Fluid Occult Blood PositiveH 07/23/16 08:15: Absolute Band Neutrophils 0.2, Anion Gap 16.5H, Anisocytosis Slight, BUN/ Creatinine Ratio 41H, Band Neutrophils % 1, Basophils # (Auto) , Basophils # ( Manual) 0.0, Basophils % (Manual) 0, Basophils (%) (Auto) , Blood Morphology Comment See reference, Blood Urea Nitrogen 148H, Calcium Level 9.7, Carbon Dioxide Level 25, Chloride Level 107, Creatinine 3.57H, Differential Total Cells Counted 100, Eosinophils # 0.0, Eosinophils # (Auto) , Eosinophils % ( Manual) 0, Eosinophils (%) (Auto) , Estimat Glomerular Filtration Rate 20.0, Estimated GFR (Non- 16.5, Glucose Level 123H, Hematocrit 22.70L , Hemoglobin 7.5L, Lymphocytes # 0.6, Lymphocytes # (Auto) , Lymphocytes % ( Manual) 3L, Lymphocytes (%) (Auto) , Mean Corpuscular Hemoglobin 25.9L, Mean Corpuscular Hemoglobin Concent 33.0, Mean Corpuscular Volume 78L, Mean Platelet Volume 8.4, Metamyelocytes % 2H, Microcytosis Slight, Monocytes # 1.6, Monocytes # (Auto) , Monocytes % (Manual) 8, Monocytes (%) (Auto) , Neutrophils # 18.0, Neutrophils # (Auto) , Neutrophils (%) (Auto) , Platelet Count 489H, Polychromasia Slight, Potassium Level 2.9L, Red Blood Count 2.90L, Red Cell Distribution Width 19.4H, Segmented Neutrophils % 86H, Sodium Level 146#, White Blood Count 20.93H 07/24/16 05:40: Absolute Band Neutrophils 0.4, Anion Gap 13.1, Anisocytosis Moderate, BUN/ Creatinine Ratio 40H, Band Neutrophils % 2, Basophils # (Auto) , Basophils # ( Manual) 0.0, Basophils % (Manual) 0, Basophils (%) (Auto) , Blood Morphology Comment See reference, Blood Urea Nitrogen 111H, Calcium Level 10.0, Carbon Dioxide Level 25, Chloride Level 110H, Creatinine 2.80H, Differential Total Cells Counted 100, Eosinophils # 0.0, Eosinophils # (Auto) , Eosinophils % ( Manual) 0, Eosinophils (%) (Auto) , Estimat Glomerular Filtration Rate 26.5, Estimated GFR (Non- 21.9, Glucose Level 129H, Hematocrit 21.70L , Hemoglobin 6.9*L, Lymphocytes # 0.4, Lymphocytes # (Auto) , Lymphocytes % ( Manual) 2L, Lymphocytes (%) (Auto) , Mean Corpuscular Hemoglobin 25.5L, Mean Corpuscular Hemoglobin Concent 31.8, Mean Corpuscular Volume 80, Mean Platelet Volume 8.1, Monocytes # 2.0, Monocytes # (Auto) , Monocytes % (Manual) 9, Monocytes (%) (Auto) , Neutrophils # 19.2, Neutrophils # (Auto) , Neutrophils (% ) (Auto) , Platelet Count 448, Potassium Level 3.7#, Red Blood Count 2.70L, Red Cell Distribution Width 19.7H, Segmented Neutrophils % 87H, Sodium Level 144, White Blood Count 22.07H 07/25/16 05:35: Absolute Band Neutrophils 0.0, Anion Gap 17.6H, Anisocytosis Slight, Band Neutrophils % 0, Basophils # (Auto) , Basophils # (Manual) 0.0, Basophils % ( Manual) 0, Basophils (%) (Auto) , Blood Morphology Comment See reference, Blood Urea Nitrogen 88H, Calcium Level 10.9H, Carbon Dioxide Level 24, Chloride Level 110H, Creatinine 2.21H, Differential Total Cells Counted 100, Eosinophils # 0.0 , Eosinophils # (Auto) , Eosinophils % (Manual) 0, Eosinophils (%) (Auto) , Estimat Glomerular Filtration Rate 34.8, Estimated GFR (Non- 28.7, Glucose Level 136H, Hematocrit 30.10L, Hemoglobin 9.7L, Lymphocytes # 0.7 , Lymphocytes # (Auto) , Lymphocytes % (Manual) 3L, Lymphocytes (%) (Auto) , Mean Corpuscular Hemoglobin 26.5, Mean Corpuscular Hemoglobin Concent 32.2, Mean Corpuscular Volume 82, Mean Platelet Volume 8.9, Metamyelocytes % 1, Monocytes # 3.1, Monocytes # (Auto) , Monocytes % (Manual) 14H, Monocytes (%) ( Auto) , Neutrophils # 18.8, Neutrophils # (Auto) , Neutrophils (%) (Auto) , Platelet Count 427, Potassium Level 3.9, Red Blood Count 3.66L, Red Cell Distribution Width 19.0H, Segmented Neutrophils % 82H, Sodium Level 148, White Blood Count 22.91H, Albumin 3.1#L, C-Reactive Protein 16.30H, Magnesium Level 2.0, Phosphorus Level 4.7#, Poikilocytosis Slight MICRO 07/21 Blood culture Negative to date IMAGING 07/21/16 CHEST 1 VIEW, AP/PA ONLY* INDICATION: Elevated white blood cell count. COMPARISON: 03/27/2016. FINDINGS: A left lung nodule measuring 2.8 cm is present and is likely increased in size when compared to CT from January 2016. Air trapping and COPD chronic. No effusion or pneumothorax. IMPRESSION: Increasing size of left upper lobe lung mass laterally measuring at least 2.7 cm today, on earlier CT it was about 1.6 cm. COPD. No other change. 07/21/16 CHEST 1 VIEW, AP/PA ONLY* INDICATION: Central line placement Portable chest 9:41 PM Right jugular central line tip projects over the right innominate vein. There is a 2 cm pulmonary nodule left mid lateral lung as well as some pleural thickening in the left lower lateral chest adjacent to this. The right lung is clear. There is no effusion or pneumothorax. There appears to be some emphysematous change in the lungs. IMPRESSION: Pleural thickening and pulmonary nodule left lung unchanged from previous day. ASSESSMENT Addy Fragoso is a 80 year old male admitted from home 07/24 with SIRS and probable sepsis though source on admit was uncertain. He met criteria on admit with HR > 90 and leukocytosis. He had acute on chronic hypoxic respiratory failure as well. He has underlying lung cancer with a primary pulmonary nodule in the left lung that has grown since prior CT scan 03/2016. He had marked anemia on admit. He has numerous chronic medical problems. Prior to this admit he had been on home hospice service but he revoked this. PLAN * SIRS, probable sepsis: Source of infection uncertain. Leukocytosis improved but persistently elevated. Blood culture negative to date. CXR less consistent with pneumonia. Got ceftriaxone and azithromycin empirically on admit. Continued. Of note, he had bacteremia 03/2016 with Staph epidermidis that had some drug resistances. If diarrhea noted, check for C diff. If WBC not improving , broaden. * Acute on Chronic Hypoxic Respiratory Failure: Oxygen protocol. IS. * Iron Deficiency Anemia: Hgb on admit 6.2. Stool positive for occult blood. Got 2 units on admit. Additional 2 units 07/24. Transfuse for Hgb < 8. Iron supplement. * COPD with Acute Exacerbation: No apparent pneumonia on CXR. Could be bronchitis. Sputum culture if able. Duoneb scheduled. Albuterol PRN. * FRANCISCO: Creatining was 4.17 on admit, improving gradually, 2.21 07/25. Monitor trend. * Non-Small Cell Lung Cancer: On the basis of biopsy 02/15. Has declined further workup or treatment for this. Had been on hospice for two weeks prior to this admit, but he has since revoked that. Nodule growing in size compared to CT scan from March 2016. For now, observe. * Pain: Hydrocodone/acetaminophen, hydromorphone. * Falls at Home, Back Pain: Possibility of compression fracture given falls at home and back pain, but deferred imaging at this time since he is a poor candidate for intervention beyond pain control. Lido-derm patches. PT/OT deferred because of pain, irritability. * F/E/N: Soft diet. Stopped IVF 07/24. Right IJ central line. * Prophylaxis: SCDs * Code Status: Full * Dispo: Inpatient. Had been on hospice prior to this admit but took himself off. Have had conversation with daughter regarding code status, DPOA-HC. At present, patient has some periods of confusion but has some limited capacity. Overall prognosis poor. At discharge, will need [facility] [facility]. CHRONIC ISSUES * Gout: Off allopurinol. * Diabetes Mellitus Type II: A1C 5.8 on prior admit. Metformin on hold. Sliding scale. * HTN: Indapamide, losartan, metoprolol all on hold. * Prostate Cancer: S/P radiation. Observe. * Constipation: Bowel regimen * Pulmonary Hypertension: Oxygen * GERD: pantoprazole ALEAH BARRIENTOS MD Jul 25, 2016 16:22
[2016-07-25] MEDS: FERROUS SULFATE 325 MG (IRON) TABLET PO SCH (17:23)
[2016-07-25] MEDS: LIDOCAINE (LIDODERM) 5% PATCH TOP SCH (17:23)
--- NOTE | 2016-07-25 19:17 | NUR ---
Patient sitting up in recliner conversing with daughter. Respirations even and non-labored on 2L of 02 per nc. Reports pain relief with Lidoderm patches in place. Alert and oriented at this time. Call light in reach.
[2016-07-25 19:51] VITALS: BP 121/65
--- NOTE | 2016-07-25 20:51 | NUR ---
Pt in chair in no distress Duoneb via nebulizer given with mask. BS sl coarse with scattered rhonchi throughout 2l/NC 97% HR 120/112 RR 20 NPC
[2016-07-25] MEDS: PATCH REMOVAL TOP SCH (21:16)
[2016-07-26 00:03] VITALS: BP 129/72
[2016-07-26] MEDS: HYDROcodone/APAP 5 MG/325 MG (NORCO) TAB PO PRN ×4 (00:03→20:16)
[2016-07-26] MEDS: ALBUTEROL/IPRATROPIUM 3MG-0.5MG/3ML (DUONEB) NEB VIAL INH SCH ×5 (03:10→22:24)
[2016-07-26 04:12] VITALS: BP 131/68
[2016-07-26] MEDS: PANTOPRAZOLE 40 MG (PROTONIX) TAB PO SCH (06:14)
--- NOTE | 2016-07-26 06:25 | NUR ---
Patient has sat in chair and on side of bed throughout night, but has been confused and restless throughout night. [place] given for pain. No needs at this time. Sitting in chair with eyes closed.
[2016-07-26 06:26] LABS: MEAN CORPUSCULAR VOLUME 82 FL (80-100); PLATELET COUNT 462 10^3uL (150-450); WHITE BLOOD COUNT 21.95 10^3uL (4.0-11.0)
[2016-07-26 06:48] LABS: ALBUMIN 3.4 g/dL (3.4-5.0); ANION GAP 19.1 MEQ/L (3-15)
[2016-07-26 07:17] LABS: MEAN CORPUSCULAR HGB CONC 31.6 g/dL (31.0-37.0)
[2016-07-26] MEDS: INSULIN LISPRO 1 UNIT/0.01 ML (HUMALOG) DOSE SC SCH ×4 (07:30→21:00)
[2016-07-26 07:52] LABS: BAND NEUTROPHILS % 2 % (0-6); LYMPHOCYTES # 1.3 #; MONOCYTES # 2.1 #; MONOCYTES % 10 % (3-11); SEGMENTED NEUTROPHILS % 82 % (51-67); TOTAL CELLS COUNTED 100
[2016-07-26 07:53] LABS: ANISOCYTOSIS SLIGHT; EOSINOPHILS % 0 % (0-4); POIKILOCYTOSIS SLIGHT; RBC MORPH SEE REFERENCE (NORMAL)
[2016-07-26 08:21] VITALS: BP 119/68
[2016-07-26] MEDS: FERROUS SULFATE 325 MG (IRON) TABLET PO SCH ×2 (08:44→19:01)
--- NOTE | 2016-07-26 09:23 | NUR ---
SpO2 96% on 2LPM. BS Clear decreased pre and post therapy.
--- NOTE | 2016-07-26 09:26 | Diagnostic Imaging Report ---
INDICATION: Respiratory distress. COMPARISON: 07/21/[address] chest from 01/26/2016. FINDINGS: The left midlung zone pulmonary nodule is similar. No new airspace disease. No pleural effusion or pneumothorax. Stable left-sided pleural thickening. Stable right jugular central venous catheter. Stable mild cardiomegaly with a tortuous aorta. IMPRESSION: 1. Stable left midlung zone pulmonary nodule and left-sided pleural thickening. 2. No definite new airspace disease or pleural effusion. 3. A followup CT chest should be considered for assessment of stability of the left pulmonary nodule as it appears larger than on the chest x-ray from 01/06/2016. Dictated by: Dictated on workstation # [id number]
[2016-07-26] MEDS: LIDOCAINE (LIDODERM) 5% PATCH TOP SCH (09:34)
[2016-07-26] MEDS ORDERED: VANCOMYCIN PHARMACY PROTOCOL IV SCH ×2 (09:35)
[2016-07-26] MEDS ORDERED: VANCOMYCIN 1,000 MG in SODIUM CHLORIDE 250 ML IV ONE (09:35)
--- NOTE | 2016-07-26 09:48 | Progress Note (E) ---
Progress Note SUBJECTIVE HR elevated at times but has atrial fibrillation. On 2 L NC. Confused/restless through the night. Didn't sleep well. WBC still elevated, at 21.95 with 82% N and 2% bands. Cr continues to slowly improve. On exam, a bit breathless and appears tired but he just got back from shower. Discussed buttocks decubitus ulcers. Has stage to on right buttock, stage 1 on left. Protected with Mepilex. (These were present on admit.) OBJECTIVE Vital Signs Date Time Temp Pulse Resp B/P Pulse Ox O2 Delivery O2 Flow Rate FiO2 07/26/16 08:21 97.4 122 18 119/68 97 Nasal cannula 07/25/16 13:44 3.00 I & O 07/25/16 07/26/16 Cumulative From/Thru 19:00 07:00 07/21/16 18:10 - 07/26/16 06:08 Intake Total 787 ml 949 ml 98279 ml Output Total 200 ml 1250 ml Balance 787 ml 749 ml 9501 ml GEN: Up to chair. Tired appearing and a bit breathless. HEENT: EOMI, clear sclerae, somewhat dry oral mucosa. IJ to right side of neck. CV: irregular, S1 S2 audible without significant murmur. PULM: Diminished bases without R/R/W. ABD: Soft, diffusely and mildly tender to palpation. Active bowel sounds. EXTR: Tender to palpation of feet. Pulses intact in DP bilaterally. Radial pulses intact. INTEG: Pallor. Age related changes. Stage 2 pressure ulcer right buttock. Stage 1 pressure ulcer left buttock. Both present on admit. NEURO: Psychomotor slowing. Generalized, but no focal weakness. Lab-Past 14 Days, 35 Results 07/21/16 19:02: Absolute Band Neutrophils 4.6, Anion Gap 28.1H, Anisocytosis Slight, BUN/ Creatinine Ratio 47H, Band Neutrophils % 12H, Basophils # (Auto) , Basophils # ( Manual) 0.0, Basophils % (Manual) 0, Basophils (%) (Auto) , Blood Morphology Comment See reference, Blood Urea Nitrogen 210#H, Calcium Level 9.9, Carbon Dioxide Level 19L, Chloride Level 94L, Creatinine 4.43#*H, Differential Total Cells Counted 100, Eosinophils # 0.0, Eosinophils # (Auto) , Eosinophils % ( Manual) 0, Eosinophils (%) (Auto) , Estimat Glomerular Filtration Rate 15.6, Estimated GFR (Non- 12.9, Glucose Level 133H, Hematocrit 19.50#* L, Hemoglobin 6.2#*L, Lymphocytes # 1.2, Lymphocytes # (Auto) , Lymphocytes % ( Manual) 3L, Lymphocytes (%) (Auto) , Mean Corpuscular Hemoglobin 24.4L, Mean Corpuscular Hemoglobin Concent 31.8, Mean Corpuscular Volume 77L, Mean Platelet Volume 9.1, Metamyelocytes % 3H, Microcytosis Slight, Monocytes # 0.8, Monocytes # (Auto) , Monocytes % (Manual) 2L, Monocytes (%) (Auto) , Neutrophils # 30.6, Neutrophils # (Auto) , Neutrophils (%) (Auto) , Platelet Count 679#H, Polychromasia Slight, Potassium Level 3.4L, Red Blood Count 2.54L, Red Cell Distribution Width 18.9H, Schistocytes Slight, Segmented Neutrophils % 80H, Sodium Level 137, White Blood Count 38.29*H 07/21/16 21:00: C-Reactive Protein 3.10H, Lactic Acid Level 2.5H, UF-Zgy-H-Type Natriuretic Peptide 763H 07/22/16 00:15: Urine Bacteria None seen, Urine Bilirubin Negative, Urine Blood Negative, Urine Clarity Clear, Urine Collection Type Clean catch, Urine Color Yellow, Urine Glucose (UA) Negative, Urine Hyaline Casts Rare, Urine Ketones Negative, Urine Leukocyte Esterase Negative, Urine Microscopic RBC 0-2, Urine Nitrite Negative, Urine Protein TraceH, Urine Renal Epithelial Cells 0-2, Urine Specific [place] 1.010, Urine Squamous Epithelial Cells 10-20, Urine Urobilinogen 0.2, Urine WBC 2-5, Urine pH 5.5, Volume Urine Centrifuged 12 ml 07/22/16 05:10: Absolute Band Neutrophils 0.8, Anion Gap 22.5H, Anisocytosis Marked, BUN/ Creatinine Ratio 45H, Band Neutrophils % 3, Basophils # (Auto) , Basophils (%) ( Auto) , Blood Morphology Comment See reference, Blood Urea Nitrogen 187H, Calcium Level 9.2, Carbon Dioxide Level 21L, Chloride Level 98, Creatinine 4.17* H, Differential Total Cells Counted 100, Eosinophils # (Auto) , Eosinophils (%) (Auto) , Estimat Glomerular Filtration Rate 16.7, Estimated GFR (Non- 13.8, Glucose Level 112H, Hematocrit 23.80L, Hemoglobin 7.8L, Lymphocytes # 1.4, Lymphocytes # (Auto) , Lymphocytes % (Manual) 5L, Lymphocytes (%) (Auto) , Mean Corpuscular Hemoglobin 25.4L, Mean Corpuscular Hemoglobin Concent 32.8, Mean Corpuscular Volume 78L, Mean Platelet Volume 8.8, Microcytosis Moderate, Monocytes # 2.2, Monocytes # (Auto) , Monocytes % (Manual ) 8, Monocytes (%) (Auto) , Neutrophils # 23.6, Neutrophils # (Auto) , Neutrophils (%) (Auto) , Platelet Count 543H, Polychromasia Slight, Potassium Level 2.9L, Red Blood Count 3.07L, Red Cell Distribution Width 19.1H, Segmented Neutrophils % 83H, Sodium Level 139, White Blood Count 28.47H, Acanthocytes Slight, Basophilic Stippling Moderate, Hypochromasia Slight, Myelocytes 1, Poikilocytosis Moderate, Smear Scan 07/22/16 12:20: Gastric Fluid Occult Blood PositiveH 07/23/16 08:15: Absolute Band Neutrophils 0.2, Anion Gap 16.5H, Anisocytosis Slight, BUN/ Creatinine Ratio 41H, Band Neutrophils % 1, Basophils # (Auto) , Basophils # ( Manual) 0.0, Basophils % (Manual) 0, Basophils (%) (Auto) , Blood Morphology Comment See reference, Blood Urea Nitrogen 148H, Calcium Level 9.7, Carbon Dioxide Level 25, Chloride Level 107, Creatinine 3.57H, Differential Total Cells Counted 100, Eosinophils # 0.0, Eosinophils # (Auto) , Eosinophils % ( Manual) 0, Eosinophils (%) (Auto) , Estimat Glomerular Filtration Rate 20.0, Estimated GFR (Non- 16.5, Glucose Level 123H, Hematocrit 22.70L , Hemoglobin 7.5L, Lymphocytes # 0.6, Lymphocytes # (Auto) , Lymphocytes % ( Manual) 3L, Lymphocytes (%) (Auto) , Mean Corpuscular Hemoglobin 25.9L, Mean Corpuscular Hemoglobin Concent 33.0, Mean Corpuscular Volume 78L, Mean Platelet Volume 8.4, Metamyelocytes % 2H, Microcytosis Slight, Monocytes # 1.6, Monocytes # (Auto) , Monocytes % (Manual) 8, Monocytes (%) (Auto) , Neutrophils # 18.0, Neutrophils # (Auto) , Neutrophils (%) (Auto) , Platelet Count 489H, Polychromasia Slight, Potassium Level 2.9L, Red Blood Count 2.90L, Red Cell Distribution Width 19.4H, Segmented Neutrophils % 86H, Sodium Level 146#, White Blood Count 20.93H 07/24/16 05:40: Absolute Band Neutrophils 0.4, Anion Gap 13.1, Anisocytosis Moderate, BUN/ Creatinine Ratio 40H, Band Neutrophils % 2, Basophils # (Auto) , Basophils # ( Manual) 0.0, Basophils % (Manual) 0, Basophils (%) (Auto) , Blood Morphology Comment See reference, Blood Urea Nitrogen 111H, Calcium Level 10.0, Carbon Dioxide Level 25, Chloride Level 110H, Creatinine 2.80H, Differential Total Cells Counted 100, Eosinophils # 0.0, Eosinophils # (Auto) , Eosinophils % ( Manual) 0, Eosinophils (%) (Auto) , Estimat Glomerular Filtration Rate 26.5, Estimated GFR (Non- 21.9, Glucose Level 129H, Hematocrit 21.70L , Hemoglobin 6.9*L, Lymphocytes # 0.4, Lymphocytes # (Auto) , Lymphocytes % ( Manual) 2L, Lymphocytes (%) (Auto) , Mean Corpuscular Hemoglobin 25.5L, Mean Corpuscular Hemoglobin Concent 31.8, Mean Corpuscular Volume 80, Mean Platelet Volume 8.1, Monocytes # 2.0, Monocytes # (Auto) , Monocytes % (Manual) 9, Monocytes (%) (Auto) , Neutrophils # 19.2, Neutrophils # (Auto) , Neutrophils (% ) (Auto) , Platelet Count 448, Potassium Level 3.7#, Red Blood Count 2.70L, Red Cell Distribution Width 19.7H, Segmented Neutrophils % 87H, Sodium Level 144, White Blood Count 22.07H 07/25/16 05:35: Absolute Band Neutrophils 0.0, Anion Gap 17.6H, Anisocytosis Slight, Band Neutrophils % 0, Basophils # (Auto) , Basophils # (Manual) 0.0, Basophils % ( Manual) 0, Basophils (%) (Auto) , Blood Morphology Comment See reference, Blood Urea Nitrogen 88H, Calcium Level 10.9H, Carbon Dioxide Level 24, Chloride Level 110H, Creatinine 2.21H, Differential Total Cells Counted 100, Eosinophils # 0.0 , Eosinophils # (Auto) , Eosinophils % (Manual) 0, Eosinophils (%) (Auto) , Estimat Glomerular Filtration Rate 34.8, Estimated GFR (Non- 28.7, Glucose Level 136H, Hematocrit 30.10L, Hemoglobin 9.7L, Lymphocytes # 0.7 , Lymphocytes # (Auto) , Lymphocytes % (Manual) 3L, Lymphocytes (%) (Auto) , Mean Corpuscular Hemoglobin 26.5, Mean Corpuscular Hemoglobin Concent 32.2, Mean Corpuscular Volume 82, Mean Platelet Volume 8.9, Metamyelocytes % 1, Monocytes # 3.1, Monocytes # (Auto) , Monocytes % (Manual) 14H, Monocytes (%) ( Auto) , Neutrophils # 18.8, Neutrophils # (Auto) , Neutrophils (%) (Auto) , Platelet Count 427, Potassium Level 3.9, Red Blood Count 3.66L, Red Cell Distribution Width 19.0H, Segmented Neutrophils % 82H, Sodium Level 148, White Blood Count 22.91H, Albumin 3.1#L, C-Reactive Protein 16.30H, Magnesium Level 2.0, Phosphorus Level 4.7#, Poikilocytosis Slight 07/26/16 05:30: Absolute Band Neutrophils 0.4, Albumin 3.4, Anion Gap 19.1H, Anisocytosis Slight , Band Neutrophils % 2, Basophils # (Auto) , Basophils # (Manual) 0.0, Basophils % (Manual) 0, Basophils (%) (Auto) , Blood Morphology Comment See reference, Blood Urea Nitrogen 77H, Calcium Level 11.3H, Carbon Dioxide Level 22 , Chloride Level 109H, Creatinine 2.11H, Differential Total Cells Counted 100, Eosinophils # 0.0, Eosinophils # (Auto) , Eosinophils % (Manual) 0, Eosinophils (%) (Auto) , Estimat Glomerular Filtration Rate 36.7, Estimated GFR (Non- 30.3, Glucose Level 123H, Hematocrit 31.30L, Hemoglobin 9.9L, Lymphocytes # 1.3, Lymphocytes # (Auto) , Lymphocytes % (Manual) 6L, Lymphocytes (%) (Auto) , Mean Corpuscular Hemoglobin 26.0, Mean Corpuscular Hemoglobin Concent 31.6, Mean Corpuscular Volume 82, Mean Platelet Volume 9.0, Metamyelocytes % 0, Monocytes # 2.1, Monocytes # (Auto) , Monocytes % (Manual) 10, Monocytes (%) (Auto) , Neutrophils # 18.0, Neutrophils # (Auto) , Neutrophils (%) (Auto) , Phosphorus Level 4.5, Platelet Count 462H, Poikilocytosis Slight, Potassium Level 3.9, Red Blood Count 3.81L, Red Cell Distribution Width 19.6H, Segmented Neutrophils % 82H, Sodium Level 147, White Blood Count 21.95H MICRO 07/26 Blood culture PENDING 07/21 Blood culture Negative to date IMAGING 07/26/16 CHEST PA/LAT (2 VIEW)* INDICATION: Respiratory distress. COMPARISON: and CT chest from 01/26/2016. FINDINGS: The left midlung zone pulmonary nodule is similar. No new airspace disease. No pleural effusion or pneumothorax. Stable left-sided pleural thickening. Stable right jugular central venous catheter. Stable mild cardiomegaly with a tortuous aorta. IMPRESSION: 1. Stable left midlung zone pulmonary nodule and left-sided pleural thickening. 2. No definite new airspace disease or pleural effusion. 3. A followup CT chest should be considered for assessment of stability of the left pulmonary nodule as it appears larger than on the chest x-ray from 2015. 07/21/16 CHEST 1 VIEW, AP/PA ONLY* INDICATION: Elevated white blood cell count. COMPARISON: 03/27/2016. FINDINGS: A left lung nodule measuring 2.8 cm is present and is likely increased in size when compared to CT from January 2016. Air trapping and COPD chronic. No effusion or pneumothorax. IMPRESSION: Increasing size of left upper lobe lung mass laterally measuring at least 2.7 cm today, on earlier CT it was about 1.6 cm. COPD. No other change. 07/21/16 CHEST 1 VIEW, AP/PA ONLY* INDICATION: Central line placement Portable chest 9:41 PM Right jugular central line tip projects over the right innominate vein. There is a 2 cm pulmonary nodule left mid lateral lung as well as some pleural thickening in the left lower lateral chest adjacent to this. The right lung is clear. There is no effusion or pneumothorax. There appears to be some emphysematous change in the lungs. IMPRESSION: Pleural thickening and pulmonary nodule left lung unchanged from previous day. ASSESSMENT Addy Fragoso is a 80 year old male admitted from home 07/24 with SIRS and probable sepsis though source on admit was uncertain. He met criteria on admit with HR > 90 and leukocytosis. He had acute on chronic hypoxic respiratory failure as well. He has underlying lung cancer with a primary pulmonary nodule in the left lung that has grown since prior CT scan 03/2016. He had marked anemia on admit. He has numerous chronic medical problems. Prior to this admit he had been on home hospice service but he revoked this. PLAN * SIRS, probable sepsis: Source of infection uncertain. Leukocytosis improved since admit but remains persistently elevated. Blood culture negative to date. New blood culture 07/26 pending. CXR less consistent with pneumonia. Got ceftriaxone and azithromycin empirically on admit. Continued. Of note, he had bacteremia 03/2016 with Staph epidermidis that had some drug resistances. If diarrhea noted, check for C diff. Since WBC not improving, escalated antibiotic 07/26 to pip-tazo and vanco. * Acute on Chronic Hypoxic Respiratory Failure: Oxygen protocol. IS. * Iron Deficiency Anemia: Hgb on admit 6.2. Stool positive for occult blood. Got 2 units on admit. Additional 2 units 07/24. Transfuse for Hgb < 8. Iron supplement. * COPD with Acute Exacerbation: No apparent pneumonia on CXR. Could be bronchitis. Sputum culture if able. Duoneb scheduled. Albuterol PRN. * FRANCISCO: Creatining was 4.17 on admit, improving gradually, 2.21 07/25. Monitor trend. * Non-Small Cell Lung Cancer: On the basis of biopsy 02/15. Has declined further workup or treatment for this. Had been on hospice for two weeks prior to this admit, but he has since revoked that. Nodule growing in size compared to CT scan from March 2016. For now, observe. * Pain: Hydrocodone/acetaminophen, hydromorphone. * Falls at Home, Back Pain: Possibility of compression fracture given falls at home and back pain, but deferred imaging at this time since he is a poor candidate for intervention beyond pain control. Lido-derm patches. PT/OT deferred because of pain, irritability. * Pressure Ulcers: Stage 1 left buttock, stage 2 right buttock, present on admit. Due to him sitting in chair for long periods of time at home. Pressure relieving strategies. Mepilex. * F/E/N: Soft diet. Stopped IVF 07/24. Right IJ central line. * Prophylaxis: SCDs * Code Status: Full * Dispo: Inpatient. Had been on hospice prior to this admit but took himself off. Have had conversation with daughter regarding code status, DPOA-HC. At present, patient has some periods of confusion but has some limited capacity. Overall prognosis poor. Family meeting at 1830 07/26. Will not likely be able to return home. CHRONIC ISSUES * Gout: Off allopurinol. * Diabetes Mellitus Type II: A1C 5.8 on prior admit. Metformin on hold. Sliding scale. * HTN: Indapamide, losartan, metoprolol all on hold. * Prostate Cancer: S/P radiation. Observe. * Constipation: Bowel regimen * Pulmonary Hypertension: Oxygen * GERD: pantoprazole ALEAH BARRIENTOS MD Jul 26, 2016 09:43
--- NOTE | 2016-07-26 09:59 | NUR ---
Nutrition Follow Up: Patient continues to eat poorly, bites-25% at most meals. Noted poor prognosis by physician. Pt. remains at high nutritional risk, especially if he is to go back home. Skin breakdown on buttocks is secondary to sitting most of the day at home. Nursing is utilizing pressure-relieving strategies. Weight today: N/A Labs: BUN 77, creatinine 2.11, glucose 123 1. Noted family meeting is planned for later today to discuss plan of care. Will continue to provide soft diet as ordered and attempt to send foods per pt. preference. Supplemental protein shakes are still necessary since his p.o. intake is so poor; will follow re: plan of care after family meeting.
[2016-07-26] MEDS: SODIUM CHLORIDE FLUSH 10 ML SYR IV SCH ×4 (10:01→21:10)
[2016-07-26] MEDS ORDERED: SODIUM CHLORIDE 100 ML ONE (10:10)
--- NOTE | 2016-07-26 10:28 | NUR ---
[place] for pain which increased with activity of shower.
--- NOTE | 2016-07-26 10:28 | NUR ---
[place] given for pain in "rear". Patient in pain after extra activity in shower.
--- NOTE | 2016-07-26 11:10 | NUR ---
Vancomycin Dosing: Pharmacy Managed S: SIRS/probable sepsis with unknown source of infection O: 80 yo male with persistently elevated WBC (22,000 with 82% neutrophils and 2% bands) despite 3 days of treatment with zithromax and rocephin, CRP 16.3 mg/dL, SCr 2.11 mg/dL, CrCl 27 mL/min; initial blood cultures negative x 4 days; repeat blood cultures pending. A/P: Antibiotics escalated to zosyn and vancomycin. Recommend vancomycin 1 gram IV q36h to achieve therapeutic goal of ~15 mg/dL. Draw trough prior to 3rd dose (07/29/16 at 0930).
[2016-07-26 11:35] VITALS: BP 122/70
[2016-07-26] MEDS: HYDROmorphone 1 MG/ML (DILAUDID) SYRINGE IV PRN ×2 (11:55→21:10)
--- NOTE | 2016-07-26 11:55 | NUR ---
Pain has decreased, but has not resolved. Dilaudid given.
--- NOTE | 2016-07-26 11:55 | NUR ---
Patient has reported pain is a little better, but still has significant pain. Dilaudid given at this time.
[2016-07-26] MEDS: PIPERACILLIN/TAZOBACTAM 3.375 GM in SODIUM CHLORIDE 100 ML IV SCH ×2 (13:39→23:49)
--- NOTE | 2016-07-26 14:00 | NUR ---
Patient resting in bed. Denies pain.
[2016-07-26 15:08] VITALS: BP 152/73
--- NOTE | 2016-07-26 19:15 | NUR ---
Patient family in room. Patient want to get up in chair. Assisted 2:1 to recliner. Transfers poorly. Report to hourly shift RN.
--- NOTE | 2016-07-26 19:49 | Progress Note (E) ---
Progress Note Met in room with patient, patients two daughters. Updated all on findings, plan of care. Patient does not feel he is dying but acknowledges slow recovery. He does not wish for hospice at this time. Discussed code status again. Educated him on his options. He does elect DNR at this time. Patient signed form and order changed in EMR. Also discussed advance directive and DPOA designation. Daughters have form and patient understands benefit of designating decision makers. They will further discuss and complete the form. Questions answered. Remains in-patient. ALEAH BARRIENTSO MD Jul 26, 2016 19:49
--- NOTE | 2016-07-26 20:15 | NUR ---
Pt is sitting up in his recliner and his daughters are at his bedside, Alert and oriented x 2, Resp are even and slightly labored, does have wheezes and diminished bases bilaterally, HRRR, BS are active x 4 quadrants. RIJ is patent, no redness, swelling, or s/s of infection noted at this time. Pt does complain of pain to his coccyx, rates 6/10, gave 1 tab PO of [place] 5/325mg PRN for discomfort. Tab alarm is on and in place, call light is in reach, will continue to monitor.
[2016-07-26] MEDS: PATCH REMOVAL TOP SCH (20:17)
--- NOTE | 2016-07-26 20:30 | NUR ---
Pt. on 2L nc, 97%, slept thru tx. BS are diminished, clear. No cough.
[2016-07-26 20:56] VITALS: BP 140/71
--- NOTE | 2016-07-26 21:10 | NUR ---
Pt continues to complain of pain, assisted pt with transferring to bed, rates pain 8/10, Gave Dilaudid 1mg SIVP PRN for discomfort, will continue to monitor.
--- NOTE | 2016-07-26 22:00 | NUR ---
Pt is currently resting in bed asleep, will continue to monitor.
[2016-07-27 00:21] VITALS: BP 135/83
[2016-07-27] MEDS: SODIUM CHLORIDE FLUSH 10 ML SYR IV SCH (03:55)
[2016-07-27] MEDS: HYDROmorphone 1 MG/ML (DILAUDID) SYRINGE IV PRN ×4 (03:55→18:59)
--- NOTE | 2016-07-27 03:55 | NUR ---
Pt is sitting on edge of bed, complains of pain to coccyx, assist pt in repositioning, rates pain 7/10, gave Dilaudid 1mg SIVP for discomfort. Will continue to monitor.
--- NOTE | 2016-07-27 04:20 | NUR ---
Pt is currently resting in bed asleep, will continue to monitor.
[2016-07-27 04:27] VITALS: BP 117/59
[2016-07-27] MEDS: ALBUTEROL/IPRATROPIUM 3MG-0.5MG/3ML (DUONEB) NEB VIAL INH SCH ×4 (05:01→22:55)
[2016-07-27] MEDS: PANTOPRAZOLE 40 MG (PROTONIX) TAB PO SCH (06:05)
[2016-07-27 06:31] LABS: MEAN CORPUSCULAR HGB CONC 31.9 g/dL (31.0-37.0); MEAN CORPUSCULAR VOLUME 83 FL (80-100); MEAN PLATELET VOLUME 8.7 FL (6.0-9.5); PLATELET COUNT 482 10^3uL (150-450); WHITE BLOOD COUNT 22.36 10^3uL (4.0-11.0)
[2016-07-27 06:36] LABS: MEAN CORPUSCULAR HEMOGLOBIN 26.5 PG (26.0-34.0)
[2016-07-27 06:41] LABS: ALBUMIN 3.5 g/dL (3.4-5.0); ANION GAP 19.3 MEQ/L (3-15)
[2016-07-27 06:53] LABS: ANISOCYTOSIS MODERATE; HYPOCHROMASIA SLIGHT; LYMPHOCYTES # 0.5 #; MICROCYTOSIS SLIGHT; MONOCYTES # 1.1 #; MONOCYTES % 5 % (3-11); POIKILOCYTOSIS SLIGHT; SEGMENTED NEUTROPHILS % 93 % (51-67); TOTAL CELLS COUNTED 100
[2016-07-27 06:57] LABS: RBC MORPH SEE REFERENCE (NORMAL)
[2016-07-27] MEDS: INSULIN LISPRO 1 UNIT/0.01 ML (HUMALOG) DOSE SC SCH ×4 (07:21→21:00)
[2016-07-27 07:29] VITALS: BP 101/57
[2016-07-27] MEDS: FERROUS SULFATE 325 MG (IRON) TABLET PO SCH ×2 (08:49→17:52)
[2016-07-27] MEDS: HYDROcodone/APAP 5 MG/325 MG (NORCO) TAB PO PRN ×3 (08:50→22:49)
[2016-07-27] MEDS: LIDOCAINE (LIDODERM) 5% PATCH TOP SCH (08:50)
[2016-07-27] MEDS: PIPERACILLIN/TAZOBACTAM 3.375 GM in SODIUM CHLORIDE 100 ML IV SCH ×2 (08:50→21:49)
--- NOTE | 2016-07-27 11:00 | NUR ---
Report given to Ariella STEVENS and care relinquished.
[2016-07-27 12:07] VITALS: BP 143/70
--- NOTE | 2016-07-27 13:04 | Progress Note (E) ---
Progress Note SUBJECTIVE Overnight, no major issues. Remains on 2 L. Afebrile. WBC not improving at all. Hgb much improved, currently 10.2. Marrow response due to anemia? Had escalated antibiotics yesterday and had obtained new blood cultures which remain negative. Remains afebrile. CRP down from 16.30 to 12.80. On exam, no real changes. He says he feels about the same and volunteers no new complaints. OBJECTIVE Vital Signs Date Time Temp Pulse Resp B/P Pulse Ox O2 Delivery O2 Flow Rate FiO2 07/27/16 07:29 97.3 115 24 101/57 98 Nasal cannula 07/25/16 13:44 3.00 I & O 07/26/16 07/27/16 Cumulative From/Thru 19:00 07:00 07/21/16 18:10 - 07/27/16 06:21 Intake Total 511 ml 1305 ml 34739 ml Output Total 1250 ml Balance 511 ml 1305 ml 72351 ml GEN: Up to chair. Tired appearing and a bit breathless. HEENT: EOMI, clear sclerae, somewhat dry oral mucosa. IJ to right side of neck. CV: irregular, S1 S2 audible without significant murmur. PULM: Diminished bases without R/R/W. ABD: Soft, diffusely and mildly tender to palpation. Active bowel sounds. EXTR: Tender to palpation of feet. Pulses intact in DP bilaterally. Radial pulses intact. 1+ pedal edema. INTEG: Pallor. Age related changes. Stage 2 pressure ulcer right buttock. Stage 1 pressure ulcer left buttock. Both present on admit. NEURO: Psychomotor slowing. Generalized, but no focal weakness. Lab-Past 14 Days, 35 Results 07/21/16 19:02: Absolute Band Neutrophils 4.6, Anion Gap 28.1H, Anisocytosis Slight, BUN/ Creatinine Ratio 47H, Band Neutrophils % 12H, Basophils # (Auto) , Basophils # ( Manual) 0.0, Basophils % (Manual) 0, Basophils (%) (Auto) , Blood Morphology Comment See reference, Blood Urea Nitrogen 210#H, Calcium Level 9.9, Carbon Dioxide Level 19L, Chloride Level 94L, Creatinine 4.43#*H, Differential Total Cells Counted 100, Eosinophils # 0.0, Eosinophils # (Auto) , Eosinophils % ( Manual) 0, Eosinophils (%) (Auto) , Estimat Glomerular Filtration Rate 15.6, Estimated GFR (Non- 12.9, Glucose Level 133H, Hematocrit 19.50#* L, Hemoglobin 6.2#*L, Lymphocytes # 1.2, Lymphocytes # (Auto) , Lymphocytes % ( Manual) 3L, Lymphocytes (%) (Auto) , Mean Corpuscular Hemoglobin 24.4L, Mean Corpuscular Hemoglobin Concent 31.8, Mean Corpuscular Volume 77L, Mean Platelet Volume 9.1, Metamyelocytes % 3H, Microcytosis Slight, Monocytes # 0.8, Monocytes # (Auto) , Monocytes % (Manual) 2L, Monocytes (%) (Auto) , Neutrophils # 30.6, Neutrophils # (Auto) , Neutrophils (%) (Auto) , Platelet Count 679#H, Polychromasia Slight, Potassium Level 3.4L, Red Blood Count 2.54L, Red Cell Distribution Width 18.9H, Schistocytes Slight, Segmented Neutrophils % 80H, Sodium Level 137, White Blood Count 38.29*H 07/21/16 21:00: C-Reactive Protein 3.10H, Lactic Acid Level 2.5H, IA-Yzz-C-Type Natriuretic Peptide 763H 07/22/16 00:15: Urine Bacteria None seen, Urine Bilirubin Negative, Urine Blood Negative, Urine Clarity Clear, Urine Collection Type Clean catch, Urine Color Yellow, Urine Glucose (UA) Negative, Urine Hyaline Casts Rare, Urine Ketones Negative, Urine Leukocyte Esterase Negative, Urine Microscopic RBC 0-2, Urine Nitrite Negative, Urine Protein TraceH, Urine Renal Epithelial Cells 0-2, Urine Specific [place] 1.010, Urine Squamous Epithelial Cells 10-20, Urine Urobilinogen 0.2, Urine WBC 2-5, Urine pH 5.5, Volume Urine Centrifuged 12 ml 07/22/16 05:10: Absolute Band Neutrophils 0.8, Anion Gap 22.5H, Anisocytosis Marked, BUN/ Creatinine Ratio 45H, Band Neutrophils % 3, Basophils # (Auto) , Basophils (%) ( Auto) , Blood Morphology Comment See reference, Blood Urea Nitrogen 187H, Calcium Level 9.2, Carbon Dioxide Level 21L, Chloride Level 98, Creatinine 4.17* H, Differential Total Cells Counted 100, Eosinophils # (Auto) , Eosinophils (%) (Auto) , Estimat Glomerular Filtration Rate 16.7, Estimated GFR (Non- 13.8, Glucose Level 112H, Hematocrit 23.80L, Hemoglobin 7.8L, Lymphocytes # 1.4, Lymphocytes # (Auto) , Lymphocytes % (Manual) 5L, Lymphocytes (%) (Auto) , Mean Corpuscular Hemoglobin 25.4L, Mean Corpuscular Hemoglobin Concent 32.8, Mean Corpuscular Volume 78L, Mean Platelet Volume 8.8, Microcytosis Moderate, Monocytes # 2.2, Monocytes # (Auto) , Monocytes % (Manual ) 8, Monocytes (%) (Auto) , Neutrophils # 23.6, Neutrophils # (Auto) , Neutrophils (%) (Auto) , Platelet Count 543H, Polychromasia Slight, Potassium Level 2.9L, Red Blood Count 3.07L, Red Cell Distribution Width 19.1H, Segmented Neutrophils % 83H, Sodium Level 139, White Blood Count 28.47H, Acanthocytes Slight, Basophilic Stippling Moderate, Hypochromasia Slight, Myelocytes 1, Poikilocytosis Moderate, Smear Scan 07/22/16 12:20: Gastric Fluid Occult Blood PositiveH 07/23/16 08:15: Absolute Band Neutrophils 0.2, Anion Gap 16.5H, Anisocytosis Slight, BUN/ Creatinine Ratio 41H, Band Neutrophils % 1, Basophils # (Auto) , Basophils # ( Manual) 0.0, Basophils % (Manual) 0, Basophils (%) (Auto) , Blood Morphology Comment See reference, Blood Urea Nitrogen 148H, Calcium Level 9.7, Carbon Dioxide Level 25, Chloride Level 107, Creatinine 3.57H, Differential Total Cells Counted 100, Eosinophils # 0.0, Eosinophils # (Auto) , Eosinophils % ( Manual) 0, Eosinophils (%) (Auto) , Estimat Glomerular Filtration Rate 20.0, Estimated GFR (Non- 16.5, Glucose Level 123H, Hematocrit 22.70L , Hemoglobin 7.5L, Lymphocytes # 0.6, Lymphocytes # (Auto) , Lymphocytes % ( Manual) 3L, Lymphocytes (%) (Auto) , Mean Corpuscular Hemoglobin 25.9L, Mean Corpuscular Hemoglobin Concent 33.0, Mean Corpuscular Volume 78L, Mean Platelet Volume 8.4, Metamyelocytes % 2H, Microcytosis Slight, Monocytes # 1.6, Monocytes # (Auto) , Monocytes % (Manual) 8, Monocytes (%) (Auto) , Neutrophils # 18.0, Neutrophils # (Auto) , Neutrophils (%) (Auto) , Platelet Count 489H, Polychromasia Slight, Potassium Level 2.9L, Red Blood Count 2.90L, Red Cell Distribution Width 19.4H, Segmented Neutrophils % 86H, Sodium Level 146#, White Blood Count 20.93H 07/24/16 05:40: Absolute Band Neutrophils 0.4, Anion Gap 13.1, Anisocytosis Moderate, BUN/ Creatinine Ratio 40H, Band Neutrophils % 2, Basophils # (Auto) , Basophils # ( Manual) 0.0, Basophils % (Manual) 0, Basophils (%) (Auto) , Blood Morphology Comment See reference, Blood Urea Nitrogen 111H, Calcium Level 10.0, Carbon Dioxide Level 25, Chloride Level 110H, Creatinine 2.80H, Differential Total Cells Counted 100, Eosinophils # 0.0, Eosinophils # (Auto) , Eosinophils % ( Manual) 0, Eosinophils (%) (Auto) , Estimat Glomerular Filtration Rate 26.5, Estimated GFR (Non- 21.9, Glucose Level 129H, Hematocrit 21.70L , Hemoglobin 6.9*L, Lymphocytes # 0.4, Lymphocytes # (Auto) , Lymphocytes % ( Manual) 2L, Lymphocytes (%) (Auto) , Mean Corpuscular Hemoglobin 25.5L, Mean Corpuscular Hemoglobin Concent 31.8, Mean Corpuscular Volume 80, Mean Platelet Volume 8.1, Monocytes # 2.0, Monocytes # (Auto) , Monocytes % (Manual) 9, Monocytes (%) (Auto) , Neutrophils # 19.2, Neutrophils # (Auto) , Neutrophils (% ) (Auto) , Platelet Count 448, Potassium Level 3.7#, Red Blood Count 2.70L, Red Cell Distribution Width 19.7H, Segmented Neutrophils % 87H, Sodium Level 144, White Blood Count 22.07H 07/25/16 05:35: Absolute Band Neutrophils 0.0, Anion Gap 17.6H, Anisocytosis Slight, Band Neutrophils % 0, Basophils # (Auto) , Basophils # (Manual) 0.0, Basophils % ( Manual) 0, Basophils (%) (Auto) , Blood Morphology Comment See reference, Blood Urea Nitrogen 88H, Calcium Level 10.9H, Carbon Dioxide Level 24, Chloride Level 110H, Creatinine 2.21H, Differential Total Cells Counted 100, Eosinophils # 0.0 , Eosinophils # (Auto) , Eosinophils % (Manual) 0, Eosinophils (%) (Auto) , Estimat Glomerular Filtration Rate 34.8, Estimated GFR (Non- 28.7, Glucose Level 136H, Hematocrit 30.10L, Hemoglobin 9.7L, Lymphocytes # 0.7 , Lymphocytes # (Auto) , Lymphocytes % (Manual) 3L, Lymphocytes (%) (Auto) , Mean Corpuscular Hemoglobin 26.5, Mean Corpuscular Hemoglobin Concent 32.2, Mean Corpuscular Volume 82, Mean Platelet Volume 8.9, Metamyelocytes % 1, Monocytes # 3.1, Monocytes # (Auto) , Monocytes % (Manual) 14H, Monocytes (%) ( Auto) , Neutrophils # 18.8, Neutrophils # (Auto) , Neutrophils (%) (Auto) , Platelet Count 427, Potassium Level 3.9, Red Blood Count 3.66L, Red Cell Distribution Width 19.0H, Segmented Neutrophils % 82H, Sodium Level 148, White Blood Count 22.91H, Albumin 3.1#L, C-Reactive Protein 16.30H, Magnesium Level 2.0, Phosphorus Level 4.7#, Poikilocytosis Slight 07/26/16 05:30: Absolute Band Neutrophils 0.4, Albumin 3.4, Anion Gap 19.1H, Anisocytosis Slight , Band Neutrophils % 2, Basophils # (Auto) , Basophils # (Manual) 0.0, Basophils % (Manual) 0, Basophils (%) (Auto) , Blood Morphology Comment See reference, Blood Urea Nitrogen 77H, Calcium Level 11.3H, Carbon Dioxide Level 22 , Chloride Level 109H, Creatinine 2.11H, Differential Total Cells Counted 100, Eosinophils # 0.0, Eosinophils # (Auto) , Eosinophils % (Manual) 0, Eosinophils (%) (Auto) , Estimat Glomerular Filtration Rate 36.7, Estimated GFR (Non- 30.3, Glucose Level 123H, Hematocrit 31.30L, Hemoglobin 9.9L, Lymphocytes # 1.3, Lymphocytes # (Auto) , Lymphocytes % (Manual) 6L, Lymphocytes (%) (Auto) , Mean Corpuscular Hemoglobin 26.0, Mean Corpuscular Hemoglobin Concent 31.6, Mean Corpuscular Volume 82, Mean Platelet Volume 9.0, Metamyelocytes % 0, Monocytes # 2.1, Monocytes # (Auto) , Monocytes % (Manual) 10, Monocytes (%) (Auto) , Neutrophils # 18.0, Neutrophils # (Auto) , Neutrophils (%) (Auto) , Phosphorus Level 4.5, Platelet Count 462H, Poikilocytosis Slight, Potassium Level 3.9, Red Blood Count 3.81L, Red Cell Distribution Width 19.6H, Segmented Neutrophils % 82H, Sodium Level 147, White Blood Count 21.95H 07/27/16 06:10: Albumin 3.5, Anion Gap 19.3H, Anisocytosis Moderate, Basophils # (Auto) , Basophils (%) (Auto) , Blood Morphology Comment See reference, Blood Urea Nitrogen 78H, Calcium Level 11.6H, Carbon Dioxide Level 24, Chloride Level 109H , Creatinine 2.15H, Differential Total Cells Counted 100, Eosinophils # (Auto) , Eosinophils (%) (Auto) , Estimat Glomerular Filtration Rate 35.9, Estimated GFR (Non- 29.7, Glucose Level 112H, Hematocrit 32.00L, Hemoglobin 10.2L, Lymphocytes # 0.5, Lymphocytes # (Auto) , Lymphocytes % ( Manual) 2L, Lymphocytes (%) (Auto) , Mean Corpuscular Hemoglobin 26.5, Mean Corpuscular Hemoglobin Concent 31.9, Mean Corpuscular Volume 83, Mean Platelet Volume 8.7, Monocytes # 1.1, Monocytes # (Auto) , Monocytes % (Manual) 5, Monocytes (%) (Auto) , Neutrophils # 20.8, Neutrophils # (Auto) , Neutrophils (% ) (Auto) , Phosphorus Level 5.4H, Platelet Count 482H, Poikilocytosis Slight, Potassium Level 4.1, Red Blood Count 3.85L, Red Cell Distribution Width 19.5H, Segmented Neutrophils % 93H, Sodium Level 148, White Blood Count 22.36H, Basophilic Stippling Slight, Hypochromasia Slight, Microcytosis Slight MICRO 07/26 Blood culture Negative to date 07/21 Blood culture Negative to date IMAGING 07/26/16 CHEST PA/LAT (2 VIEW)* INDICATION: Respiratory distress. COMPARISON: and CT chest from 01/26/2016. FINDINGS: The left midlung zone pulmonary nodule is similar. No new airspace disease. No pleural effusion or pneumothorax. Stable left-sided pleural thickening. Stable right jugular central venous catheter. Stable mild cardiomegaly with a tortuous aorta. IMPRESSION: 1. Stable left midlung zone pulmonary nodule and left-sided pleural thickening. 2. No definite new airspace disease or pleural effusion. 3. A followup CT chest should be considered for assessment of stability of the left pulmonary nodule as it appears larger than on the chest x-ray from 2015. 07/21/16 CHEST 1 VIEW, AP/PA ONLY* INDICATION: Elevated white blood cell count. COMPARISON: 03/27/2016. FINDINGS: A left lung nodule measuring 2.8 cm is present and is likely increased in size when compared to CT from January 2016. Air trapping and COPD chronic. No effusion or pneumothorax. IMPRESSION: Increasing size of left upper lobe lung mass laterally measuring at least 2.7 cm today, on earlier CT it was about 1.6 cm. COPD. No other change. 07/21/16 CHEST 1 VIEW, AP/PA ONLY* INDICATION: Central line placement Portable chest 9:41 PM Right jugular central line tip projects over the right innominate vein. There is a 2 cm pulmonary nodule left mid lateral lung as well as some pleural thickening in the left lower lateral chest adjacent to this. The right lung is clear. There is no effusion or pneumothorax. There appears to be some emphysematous change in the lungs. IMPRESSION: Pleural thickening and pulmonary nodule left lung unchanged from previous day. ASSESSMENT Addy Fragoso is a 80 year old male admitted from home 07/24 with SIRS and probable sepsis though source on admit was uncertain. He met criteria on admit with HR > 90 and leukocytosis. He had acute on chronic hypoxic respiratory failure as well. He has underlying lung cancer with a primary pulmonary nodule in the left lung that has grown since prior CT scan 03/2016. He had marked anemia on admit. He has numerous chronic medical problems. Prior to this admit he had been on home hospice service but he revoked this. PLAN * SIRS, probable sepsis: Source of infection uncertain. Leukocytosis improved since admit but remains persistently elevated. Blood culture negative to date. New blood culture 07/26 pending. CXR less consistent with pneumonia. Got ceftriaxone and azithromycin empirically on admit. Continued. Of note, he had bacteremia 03/2016 with Staph epidermidis that had some drug resistances. If diarrhea noted, check for C diff. * Leukocytosis: WBC 38.29 on admit, initially improved but now stagnant . Infectious? Reactive to anemia? Initial blood culture negative. Repeat blood culture negative. Since WBC not improving, escalated antibiotic 07/26 to pip- tazo and vanco. * Acute on Chronic Hypoxic Respiratory Failure: Oxygen protocol. IS. * Iron Deficiency Anemia: Hgb on admit 6.2. Stool positive for occult blood. Got 2 units on admit. Additional 2 units 07/24. Transfuse for Hgb < 8. Iron supplement. * COPD with Acute Exacerbation: Acute exacerbation resolving. No apparent pneumonia on CXR. Could be bronchitis. Sputum culture if able. Duoneb scheduled. Albuterol PRN. * FRANCISCO: Creatinine was 4.17 on admit, improving gradually, 2.21 07/25. Monitor trend. * Non-Small Cell Lung Cancer: On the basis of biopsy 02/15. Has declined further workup or treatment for this. Had been on hospice for two weeks prior to this admit, but he has since revoked that. Nodule growing in size compared to CT scan from March 2016. For now, observe. * Pain: Hydrocodone/acetaminophen, hydromorphone. * Falls at Home, Back Pain: Possibility of compression fracture given falls at home and back pain, but deferred imaging at this time since he is a poor candidate for intervention beyond pain control. Lido-derm patches. PT/OT deferred because of pain, irritability. * Pressure Ulcers: Stage 1 left buttock, stage 2 right buttock, present on admit. Due to him sitting in chair for long periods of time at home. Pressure relieving strategies. Mepilex. * Pedal Edema: JOHN hose. Monitor daily weight and consider gentle diuresis if appropriate. * F/E/N: Soft diet. Stopped IVF 07/24. Right IJ central line. * Prophylaxis: SCDs * Code Status: DNR * Dispo: Inpatient. Had been on hospice prior to this admit but took himself off. Have had conversation with daughter regarding code status, [id number]-HC. At present, patient has some periods of confusion but has some limited capacity. Overall prognosis poor. Family meeting at 1830 07/26 and he wants to continue therapy but elected DNR. Will not be able to return home and is agreeable to placement at [facility] when appropriate. CHRONIC ISSUES * Gout: Off allopurinol. * Diabetes Mellitus Type II: A1C 5.8 on prior admit. Metformin on hold. Sliding scale. * HTN: Indapamide, losartan, metoprolol all on hold. * Prostate Cancer: S/P radiation. Observe. * Constipation: Bowel regimen * Pulmonary Hypertension: Oxygen * GERD: pantoprazole ALEAH BARRIENTOS MD Jul 27, 2016 08:07
--- NOTE | 2016-07-27 13:59 | NUR ---
Requests pain pain for right sided pain. pain 6:10 reported. pain med given
[2016-07-27 16:33] VITALS: BP 131/63
--- NOTE | 2016-07-27 17:24 | NUR ---
Pt. seems a little restless today, ashok. nebulizer tx's well. BS are clear, diminished, no cough. O2 @ 2L nc, 98%.
--- NOTE | 2016-07-27 20:40 | NUR ---
Lying in bed in semi fowlers. Looks uncomfortable, but denies pain and denies need for pain medication. When asked about difficulty breathing he nodded his head yes. Had some pursed lip breathing and occasional exp wheeze. RT notified.
[2016-07-27 20:46] VITALS: BP 130/61
[2016-07-27] MEDS: PATCH REMOVAL TOP SCH (21:00)
--- NOTE | 2016-07-27 22:51 | NUR ---
[place] for pain.
[2016-07-28] VITALS: BP 124/52
--- NOTE | 2016-07-28 | NUR ---
Not sleeping well. Awake. Denies pain. Has frequent sighing. Report to next shift.
[2016-07-28] MEDS: VANCOMYCIN 1,000 MG in SODIUM CHLORIDE 250 ML IV SCH (00:35)
[2016-07-28] MEDS: HYDROmorphone 1 MG/ML (DILAUDID) SYRINGE IV PRN ×8 (03:34→20:29)
[2016-07-28 04:00] VITALS: BP 137/72
[2016-07-28] MEDS: ALBUTEROL/IPRATROPIUM 3MG-0.5MG/3ML (DUONEB) NEB VIAL INH SCH ×4 (05:54→23:17)
[2016-07-28] MEDS: PANTOPRAZOLE 40 MG (PROTONIX) TAB PO SCH (06:12)
[2016-07-28] MEDS: HYDROcodone/APAP 5 MG/325 MG (NORCO) TAB PO PRN ×3 (06:13→15:07)
--- NOTE | 2016-07-28 06:40 | NUR ---
Patient awake through most of the night, has been calling out for staff to come into room to reposition frequently. Has reported pain throughout night, PRNs given as needed. Resting in bed without gown, bed alarm on for safety. Right IJ Heplocked. No needs at this time.
[2016-07-28 07:25] VITALS: BP 141/80
[2016-07-28] MEDS: INSULIN LISPRO 1 UNIT/0.01 ML (HUMALOG) DOSE SC SCH ×4 (07:30→21:00)
[2016-07-28] MEDS: FERROUS SULFATE 325 MG (IRON) TABLET PO SCH ×2 (09:15→17:30)
[2016-07-28] MEDS: PIPERACILLIN/TAZOBACTAM 3.375 GM in SODIUM CHLORIDE 100 ML IV SCH ×2 (09:16→20:28)
[2016-07-28] MEDS: LIDOCAINE (LIDODERM) 5% PATCH TOP SCH (09:17)
--- NOTE | 2016-07-28 09:38 | NUR ---
Pt sitting in chair at bedside, alert, oriented to person, place, situation, speech clear. States continues to have back pain, rates 4/10, informed will apply Lidocaine patches on back and give PRN med, verbalizes understanding. Right AJ patent, flushes easily, IV abx administered per orders. Lungs diminished, no wheezing heard at this time, oxygen at 2L/NC. Abdomen soft, non-tender, no nausea. Call light in reach. Will round frequently for cares.
[2016-07-28 12:06] VITALS: BP 116/92
[2016-07-28 15:51] VITALS: BP 135/75
--- NOTE | 2016-07-28 16:17 | Progress Note (E) ---
Progress Note SUBJECTIVE No significant changes. Cultures remain negative. He is not really improving. Had deferred labs for today but plan to recheck CBC in AM. Weight is significantly increased. NT-pro-BNP had not been markedly elevated and CXR has not shown significant failure, but adding some furosemide. OBJECTIVE Vital Signs Date Time Temp Pulse Resp B/P Pulse Ox O2 Delivery O2 Flow Rate FiO2 07/28/16 15:51 97.5 68 16 135/75 96 Nasal cannula 07/25/16 13:44 3.00 I & O 07/27/16 07/28/16 Cumulative From/Thru 19:00 07:00 07/21/16 18:10 - 07/28/16 05:43 Intake Total 109 ml 100 ml 09157 ml Output Total 1250 ml Balance 109 ml 100 ml 68729 ml GEN: Up to chair. Tired appearing. Not very talkative. HEENT: EOMI, clear sclerae, somewhat dry oral mucosa. IJ to right side of neck. CV: irregular, S1 S2 audible without significant murmur. PULM: Diminished bases without R/R/W. ABD: Soft, diffusely and mildly tender to palpation. Active bowel sounds. EXTR: Tender to palpation of feet. Pulses intact in DP bilaterally. Radial pulses intact. 1+ pedal edema. INTEG: Pallor. Age related changes. Stage 2 pressure ulcer right buttock. Stage 1 pressure ulcer left buttock. Both present on admit. NEURO: Psychomotor slowing. Generalized, but no focal weakness. Weight: 79.3 kg (69.3 kg on admit) Lab-Past 14 Days, 35 Results 07/21/16 19:02: Absolute Band Neutrophils 4.6, Anion Gap 28.1H, Anisocytosis Slight, BUN/ Creatinine Ratio 47H, Band Neutrophils % 12H, Basophils # (Auto) , Basophils # ( Manual) 0.0, Basophils % (Manual) 0, Basophils (%) (Auto) , Blood Morphology Comment See reference, Blood Urea Nitrogen 210#H, Calcium Level 9.9, Carbon Dioxide Level 19L, Chloride Level 94L, Creatinine 4.43#*H, Differential Total Cells Counted 100, Eosinophils # 0.0, Eosinophils # (Auto) , Eosinophils % ( Manual) 0, Eosinophils (%) (Auto) , Estimat Glomerular Filtration Rate 15.6, Estimated GFR (Non- 12.9, Glucose Level 133H, Hematocrit 19.50#* L, Hemoglobin 6.2#*L, Lymphocytes # 1.2, Lymphocytes # (Auto) , Lymphocytes % ( Manual) 3L, Lymphocytes (%) (Auto) , Mean Corpuscular Hemoglobin 24.4L, Mean Corpuscular Hemoglobin Concent 31.8, Mean Corpuscular Volume 77L, Mean Platelet Volume 9.1, Metamyelocytes % 3H, Microcytosis Slight, Monocytes # 0.8, Monocytes # (Auto) , Monocytes % (Manual) 2L, Monocytes (%) (Auto) , Neutrophils # 30.6, Neutrophils # (Auto) , Neutrophils (%) (Auto) , Platelet Count 679#H, Polychromasia Slight, Potassium Level 3.4L, Red Blood Count 2.54L, Red Cell Distribution Width 18.9H, Schistocytes Slight, Segmented Neutrophils % 80H, Sodium Level 137, White Blood Count 38.29*H 07/21/16 21:00: C-Reactive Protein 3.10H, Lactic Acid Level 2.5H, YR-Crr-I-Type Natriuretic Peptide 763H 07/22/16 00:15: Urine Bacteria None seen, Urine Bilirubin Negative, Urine Blood Negative, Urine Clarity Clear, Urine Collection Type Clean catch, Urine Color Yellow, Urine Glucose (UA) Negative, Urine Hyaline Casts Rare, Urine Ketones Negative, Urine Leukocyte Esterase Negative, Urine Microscopic RBC 0-2, Urine Nitrite Negative, Urine Protein TraceH, Urine Renal Epithelial Cells 0-2, Urine Specific [place] 1.010, Urine Squamous Epithelial Cells 10-20, Urine Urobilinogen 0.2, Urine WBC 2-5, Urine pH 5.5, Volume Urine Centrifuged 12 ml 07/22/16 05:10: Absolute Band Neutrophils 0.8, Anion Gap 22.5H, Anisocytosis Marked, BUN/ Creatinine Ratio 45H, Band Neutrophils % 3, Basophils # (Auto) , Basophils (%) ( Auto) , Blood Morphology Comment See reference, Blood Urea Nitrogen 187H, Calcium Level 9.2, Carbon Dioxide Level 21L, Chloride Level 98, Creatinine 4.17* H, Differential Total Cells Counted 100, Eosinophils # (Auto) , Eosinophils (%) (Auto) , Estimat Glomerular Filtration Rate 16.7, Estimated GFR (Non- 13.8, Glucose Level 112H, Hematocrit 23.80L, Hemoglobin 7.8L, Lymphocytes # 1.4, Lymphocytes # (Auto) , Lymphocytes % (Manual) 5L, Lymphocytes (%) (Auto) , Mean Corpuscular Hemoglobin 25.4L, Mean Corpuscular Hemoglobin Concent 32.8, Mean Corpuscular Volume 78L, Mean Platelet Volume 8.8, Microcytosis Moderate, Monocytes # 2.2, Monocytes # (Auto) , Monocytes % (Manual ) 8, Monocytes (%) (Auto) , Neutrophils # 23.6, Neutrophils # (Auto) , Neutrophils (%) (Auto) , Platelet Count 543H, Polychromasia Slight, Potassium Level 2.9L, Red Blood Count 3.07L, Red Cell Distribution Width 19.1H, Segmented Neutrophils % 83H, Sodium Level 139, White Blood Count 28.47H, Acanthocytes Slight, Basophilic Stippling Moderate, Hypochromasia Slight, Myelocytes 1, Poikilocytosis Moderate, Smear Scan 07/22/16 12:20: Gastric Fluid Occult Blood PositiveH 07/23/16 08:15: Absolute Band Neutrophils 0.2, Anion Gap 16.5H, Anisocytosis Slight, BUN/ Creatinine Ratio 41H, Band Neutrophils % 1, Basophils # (Auto) , Basophils # ( Manual) 0.0, Basophils % (Manual) 0, Basophils (%) (Auto) , Blood Morphology Comment See reference, Blood Urea Nitrogen 148H, Calcium Level 9.7, Carbon Dioxide Level 25, Chloride Level 107, Creatinine 3.57H, Differential Total Cells Counted 100, Eosinophils # 0.0, Eosinophils # (Auto) , Eosinophils % ( Manual) 0, Eosinophils (%) (Auto) , Estimat Glomerular Filtration Rate 20.0, Estimated GFR (Non- 16.5, Glucose Level 123H, Hematocrit 22.70L , Hemoglobin 7.5L, Lymphocytes # 0.6, Lymphocytes # (Auto) , Lymphocytes % ( Manual) 3L, Lymphocytes (%) (Auto) , Mean Corpuscular Hemoglobin 25.9L, Mean Corpuscular Hemoglobin Concent 33.0, Mean Corpuscular Volume 78L, Mean Platelet Volume 8.4, Metamyelocytes % 2H, Microcytosis Slight, Monocytes # 1.6, Monocytes # (Auto) , Monocytes % (Manual) 8, Monocytes (%) (Auto) , Neutrophils # 18.0, Neutrophils # (Auto) , Neutrophils (%) (Auto) , Platelet Count 489H, Polychromasia Slight, Potassium Level 2.9L, Red Blood Count 2.90L, Red Cell Distribution Width 19.4H, Segmented Neutrophils % 86H, Sodium Level 146#, White Blood Count 20.93H 07/24/16 05:40: Absolute Band Neutrophils 0.4, Anion Gap 13.1, Anisocytosis Moderate, BUN/ Creatinine Ratio 40H, Band Neutrophils % 2, Basophils # (Auto) , Basophils # ( Manual) 0.0, Basophils % (Manual) 0, Basophils (%) (Auto) , Blood Morphology Comment See reference, Blood Urea Nitrogen 111H, Calcium Level 10.0, Carbon Dioxide Level 25, Chloride Level 110H, Creatinine 2.80H, Differential Total Cells Counted 100, Eosinophils # 0.0, Eosinophils # (Auto) , Eosinophils % ( Manual) 0, Eosinophils (%) (Auto) , Estimat Glomerular Filtration Rate 26.5, Estimated GFR (Non- 21.9, Glucose Level 129H, Hematocrit 21.70L , Hemoglobin 6.9*L, Lymphocytes # 0.4, Lymphocytes # (Auto) , Lymphocytes % ( Manual) 2L, Lymphocytes (%) (Auto) , Mean Corpuscular Hemoglobin 25.5L, Mean Corpuscular Hemoglobin Concent 31.8, Mean Corpuscular Volume 80, Mean Platelet Volume 8.1, Monocytes # 2.0, Monocytes # (Auto) , Monocytes % (Manual) 9, Monocytes (%) (Auto) , Neutrophils # 19.2, Neutrophils # (Auto) , Neutrophils (% ) (Auto) , Platelet Count 448, Potassium Level 3.7#, Red Blood Count 2.70L, Red Cell Distribution Width 19.7H, Segmented Neutrophils % 87H, Sodium Level 144, White Blood Count 22.07H 07/25/16 05:35: Absolute Band Neutrophils 0.0, Anion Gap 17.6H, Anisocytosis Slight, Band Neutrophils % 0, Basophils # (Auto) , Basophils # (Manual) 0.0, Basophils % ( Manual) 0, Basophils (%) (Auto) , Blood Morphology Comment See reference, Blood Urea Nitrogen 88H, Calcium Level 10.9H, Carbon Dioxide Level 24, Chloride Level 110H, Creatinine 2.21H, Differential Total Cells Counted 100, Eosinophils # 0.0 , Eosinophils # (Auto) , Eosinophils % (Manual) 0, Eosinophils (%) (Auto) , Estimat Glomerular Filtration Rate 34.8, Estimated GFR (Non- 28.7, Glucose Level 136H, Hematocrit 30.10L, Hemoglobin 9.7L, Lymphocytes # 0.7 , Lymphocytes # (Auto) , Lymphocytes % (Manual) 3L, Lymphocytes (%) (Auto) , Mean Corpuscular Hemoglobin 26.5, Mean Corpuscular Hemoglobin Concent 32.2, Mean Corpuscular Volume 82, Mean Platelet Volume 8.9, Metamyelocytes % 1, Monocytes # 3.1, Monocytes # (Auto) , Monocytes % (Manual) 14H, Monocytes (%) ( Auto) , Neutrophils # 18.8, Neutrophils # (Auto) , Neutrophils (%) (Auto) , Platelet Count 427, Potassium Level 3.9, Red Blood Count 3.66L, Red Cell Distribution Width 19.0H, Segmented Neutrophils % 82H, Sodium Level 148, White Blood Count 22.91H, Albumin 3.1#L, C-Reactive Protein 16.30H, Magnesium Level 2.0, Phosphorus Level 4.7#, Poikilocytosis Slight 07/26/16 05:30: Absolute Band Neutrophils 0.4, Albumin 3.4, Anion Gap 19.1H, Anisocytosis Slight , Band Neutrophils % 2, Basophils # (Auto) , Basophils # (Manual) 0.0, Basophils % (Manual) 0, Basophils (%) (Auto) , Blood Morphology Comment See reference, Blood Urea Nitrogen 77H, Calcium Level 11.3H, Carbon Dioxide Level 22 , Chloride Level 109H, Creatinine 2.11H, Differential Total Cells Counted 100, Eosinophils # 0.0, Eosinophils # (Auto) , Eosinophils % (Manual) 0, Eosinophils (%) (Auto) , Estimat Glomerular Filtration Rate 36.7, Estimated GFR (Non- 30.3, Glucose Level 123H, Hematocrit 31.30L, Hemoglobin 9.9L, Lymphocytes # 1.3, Lymphocytes # (Auto) , Lymphocytes % (Manual) 6L, Lymphocytes (%) (Auto) , Mean Corpuscular Hemoglobin 26.0, Mean Corpuscular Hemoglobin Concent 31.6, Mean Corpuscular Volume 82, Mean Platelet Volume 9.0, Metamyelocytes % 0, Monocytes # 2.1, Monocytes # (Auto) , Monocytes % (Manual) 10, Monocytes (%) (Auto) , Neutrophils # 18.0, Neutrophils # (Auto) , Neutrophils (%) (Auto) , Phosphorus Level 4.5, Platelet Count 462H, Poikilocytosis Slight, Potassium Level 3.9, Red Blood Count 3.81L, Red Cell Distribution Width 19.6H, Segmented Neutrophils % 82H, Sodium Level 147, White Blood Count 21.95H 07/27/16 06:10: Albumin 3.5, Anion Gap 19.3H, Anisocytosis Moderate, Basophils # (Auto) , Basophils (%) (Auto) , Blood Morphology Comment See reference, Blood Urea Nitrogen 78H, Calcium Level 11.6H, Carbon Dioxide Level 24, Chloride Level 109H , Creatinine 2.15H, Differential Total Cells Counted 100, Eosinophils # (Auto) , Eosinophils (%) (Auto) , Estimat Glomerular Filtration Rate 35.9, Estimated GFR (Non- 29.7, Glucose Level 112H, Hematocrit 32.00L, Hemoglobin 10.2L, Lymphocytes # 0.5, Lymphocytes # (Auto) , Lymphocytes % ( Manual) 2L, Lymphocytes (%) (Auto) , Mean Corpuscular Hemoglobin 26.5, Mean Corpuscular Hemoglobin Concent 31.9, Mean Corpuscular Volume 83, Mean Platelet Volume 8.7, Monocytes # 1.1, Monocytes # (Auto) , Monocytes % (Manual) 5, Monocytes (%) (Auto) , Neutrophils # 20.8, Neutrophils # (Auto) , Neutrophils (% ) (Auto) , Phosphorus Level 5.4H, Platelet Count 482H, Poikilocytosis Slight, Potassium Level 4.1, Red Blood Count 3.85L, Red Cell Distribution Width 19.5H, Segmented Neutrophils % 93H, Sodium Level 148, White Blood Count 22.36H, Basophilic Stippling Slight, C-Reactive Protein 12.80H, Hypochromasia Slight, Microcytosis Slight MICRO 07/26 Blood culture Negative to date 07/21 Blood culture Negative to date IMAGING 07/26/16 CHEST PA/LAT (2 VIEW)* INDICATION: Respiratory distress. COMPARISON: and CT chest from 01/26/2016. FINDINGS: The left midlung zone pulmonary nodule is similar. No new airspace disease. No pleural effusion or pneumothorax. Stable left-sided pleural thickening. Stable right jugular central venous catheter. Stable mild cardiomegaly with a tortuous aorta. IMPRESSION: 1. Stable left midlung zone pulmonary nodule and left-sided pleural thickening. 2. No definite new airspace disease or pleural effusion. 3. A followup CT chest should be considered for assessment of stability of the left pulmonary nodule as it appears larger than on the chest x-ray from 2015. 07/21/16 CHEST 1 VIEW, AP/PA ONLY* INDICATION: Elevated white blood cell count. COMPARISON: 03/27/2016. FINDINGS: A left lung nodule measuring 2.8 cm is present and is likely increased in size when compared to CT from January 2016. Air trapping and COPD chronic. No effusion or pneumothorax. IMPRESSION: Increasing size of left upper lobe lung mass laterally measuring at least 2.7 cm today, on earlier CT it was about 1.6 cm. COPD. No other change. 07/21/16 CHEST 1 VIEW, AP/PA ONLY* INDICATION: Central line placement Portable chest 9:41 PM Right jugular central line tip projects over the right innominate vein. There is a 2 cm pulmonary nodule left mid lateral lung as well as some pleural thickening in the left lower lateral chest adjacent to this. The right lung is clear. There is no effusion or pneumothorax. There appears to be some emphysematous change in the lungs. IMPRESSION: Pleural thickening and pulmonary nodule left lung unchanged from previous day. ASSESSMENT Addy Fragoso is a 80 year old male admitted from home 07/24 with SIRS and probable sepsis though source on admit was uncertain. He met criteria on admit with HR > 90 and leukocytosis. He had acute on chronic hypoxic respiratory failure as well. He has underlying lung cancer with a primary pulmonary nodule in the left lung that has grown since prior CT scan 03/2016. He had marked anemia on admit. He has numerous chronic medical problems. Prior to this admit he had been on home hospice service but he revoked this. He has had prolonged hospitalization due to persistent respiratory distress, persistent leukocytosis (without definitive source of infection) and generalized deconditioning. PLAN * SIRS, probable sepsis: Source of infection uncertain. Leukocytosis improved since admit but then remained persistently elevated. Blood cultures negative to date. CXR less consistent with pneumonia. Got ceftriaxone and azithromycin empirically on admit. Of note, he had bacteremia 03/2016 with Staph epidermidis that had some drug resistances. If diarrhea noted, check for C diff. * Leukocytosis: WBC 38.29 on admit, initially improved but now stagnant . Infectious? Reactive to anemia? Initial blood culture negative. Repeat blood culture negative. Since WBC not improving, escalated antibiotic 07/26 to pip- tazo and vanco. * Acute on Chronic Hypoxic Respiratory Failure: Oxygen protocol. IS. * Iron Deficiency Anemia: Hgb on admit 6.2. Stool positive for occult blood. Got 2 units on admit. Additional 2 units 07/24. Transfuse for Hgb < 8. Iron supplement. * COPD with Acute Exacerbation: Acute exacerbation resolving. No apparent pneumonia on CXR. Could be bronchitis. Sputum culture if able. Duoneb scheduled. Albuterol PRN. * FRANCISCO: Creatinine was 4.17 on admit, improving gradually, 2.21 07/25. Monitor trend. * Non-Small Cell Lung Cancer: On the basis of biopsy 02/15. Has declined further workup or treatment for this. Had been on hospice for two weeks prior to this admit, but he has since revoked that. Nodule growing in size compared to CT scan from March 2016. For now, observe. * Pain: Hydrocodone/acetaminophen, hydromorphone. * Falls at Home, Back Pain: Possibility of compression fracture given falls at home and back pain, but deferred imaging at this time since he is a poor candidate for intervention beyond pain control. Lido-derm patches. PT/OT deferred because of pain, irritability. * Pressure Ulcers: Stage 1 left buttock, stage 2 right buttock, present on admit. Due to him sitting in chair for long periods of time at home. Pressure relieving strategies. Mepilex. * Pedal Edema: JOHN kebede. Started furosemide 07/28. * Constipation: Bowel regimen. Scheduled dosing until constipation improves. * Deconditioning: He does not want to participate with PT/OT so this has not been ordered. * F/E/N: Soft diet. Stopped IVF 07/24. Right IJ central line. * Prophylaxis: SCDs * Code Status: DNR * Dispo: Inpatient. Had been on hospice prior to this admit but took himself off. Have had conversation with daughter regarding code status, DPOA-HC. At present, patient has some periods of confusion but has some limited capacity. Overall prognosis poor. Family meeting at 1830 07/26 and he wants to continue therapy but elected DNR. Will not be able to return home and is agreeable to placement at [facility] when appropriate. Uncertain end-points for this hospitalization but he is not well enough for discharge. Working on edema, constipation, leukocytosis. CHRONIC ISSUES * Gout: Off allopurinol. * Diabetes Mellitus Type II: A1C 5.8 on prior admit. Metformin on hold. Sliding scale. * HTN: Indapamide, losartan, metoprolol all on hold. * Prostate Cancer: S/P radiation. Observe. * Pulmonary Hypertension: Oxygen * GERD: pantoprazole ALEAH BARRIENTOS MD Jul 28, 2016 16:17
[2016-07-28] MEDS: DOCUSATE SODIUM 100 MG (COLACE) CAP PO SCH ×2 (17:30→21:00)
[2016-07-28] MEDS: MAGNESIUM HYDROXIDE 80MG/ML (MILK OF MAGNESIA) 30 ML UDC PO SCH ×2 (17:30→21:00)
[2016-07-28] MEDS: POLYETHYLENE GLYCOL 17 GM (MIRALAX) PACKET PO SCH (17:30)
[2016-07-28] MEDS: FUROSEMIDE 40 MG/4 ML (LASIX) VIAL IV SCH (17:30)
[2016-07-28 19:19] VITALS: BP 141/78
[2016-07-28] MEDS: PATCH REMOVAL TOP SCH (21:00)
[2016-07-29 00:15] VITALS: BP 132/75
[2016-07-29] MEDS: HYDROmorphone 1 MG/ML (DILAUDID) SYRINGE IV PRN ×4 (02:08→21:52)
[2016-07-29 04:07] VITALS: BP 125/82
[2016-07-29] MEDS: ALBUTEROL/IPRATROPIUM 3MG-0.5MG/3ML (DUONEB) NEB VIAL INH SCH ×4 (05:31→23:54)
[2016-07-29 06:04] LABS: MEAN CORPUSCULAR VOLUME 85 FL (80-100); MEAN PLATELET VOLUME 8.6 FL (6.0-9.5); PLATELET COUNT 394 10^3uL (150-450); WHITE BLOOD COUNT 19.37 10^3uL (4.0-11.0)
[2016-07-29] MEDS: HYDROcodone/APAP 7.5 MG/325 MG (NORCO) TABLET PO PRN ×3 (06:19→21:06)
[2016-07-29] MEDS: PANTOPRAZOLE 40 MG (PROTONIX) TAB PO SCH (06:19)
[2016-07-29 06:23] LABS: MEAN CORPUSCULAR HEMOGLOBIN 26.1 PG (26.0-34.0); MEAN CORPUSCULAR HGB CONC 30.8 g/dL (31.0-37.0)
[2016-07-29 06:29] LABS: ALBUMIN 3.3 g/dL (3.4-5.0); ANION GAP 18.2 MEQ/L (3-15); MAGNESIUM* 1.8 mg/dL (1.6-2.3)
[2016-07-29 06:32] LABS: BAND NEUTROPHILS % 1 % (0-6); EOSINOPHILS % 0 % (0-4); SEGMENTED NEUTROPHILS % 84 % (51-67)
[2016-07-29 06:33] LABS: ANISOCYTOSIS MODERATE; LYMPHOCYTES # 1.2 #; MICROCYTOSIS SLIGHT; MONOCYTES # 1.7 #; MONOCYTES % 9 % (3-11); POIKILOCYTOSIS SLIGHT; RBC MORPH SEE REFERENCE (NORMAL); TOTAL CELLS COUNTED 100
--- NOTE | 2016-07-29 06:46 | NUR ---
Patient rests in bed throughout night. Dilaudid given as needed, patient difficult to rouse through most of shift. Has been incontinent throughout night. No needs at this time. Resting in bed with eyes closed.
[2016-07-29] MEDS: INSULIN LISPRO 1 UNIT/0.01 ML (HUMALOG) DOSE SC SCH ×4 (07:07→21:00)
--- NOTE | 2016-07-29 07:40 | NUR ---
Patient resting in bed with eyes closed upon shift assessment. Arouses easily to verbal stimuli. Alert and oriented X3. Reports generalized lower back pain rated 4/10 on pain scale. Denies need for PRN Dilaudid. Respirations even and non-labored on 2L of 02 per nc. Lung sounds diminished. HR irregular at a rate of 68 bpm. No edema noted to BLE. Mottling on bilateral knees. Updated on plan of care for shift. Yellow gown and TABS alarm intact for safety. Call light in reach.
[2016-07-29 07:59] VITALS: BP 122/83
--- NOTE | 2016-07-29 08:27 | Diagnostic Imaging Report ---
INDICATION: Back pain after fall. Two views were obtained. FINDINGS: There is grade 2 spondylolisthesis of L5 on S1. There is moderate degenerative disc disease at L4-5. The vertebral body heights are relatively well-maintained. There is marked lower lumbar hypertrophic degenerative facet disease. IMPRESSION: Severe degenerative changes in lower lumbar spine most of which appear chronic. In light of the osteopenia, possibility of an occult or early compression fracture cannot be entirely excluded. Recommend clinical correlation and if warranted followup with MRI. Dictated by: Dictated on workstation # [id number]
[2016-07-29] MEDS: MAGNESIUM HYDROXIDE 80MG/ML (MILK OF MAGNESIA) 30 ML UDC PO SCH ×4 (09:24→21:06)
[2016-07-29] MEDS: POLYETHYLENE GLYCOL 17 GM (MIRALAX) PACKET PO SCH (09:24)
[2016-07-29] MEDS: FUROSEMIDE 40 MG/4 ML (LASIX) VIAL IV SCH (09:24)
[2016-07-29] MEDS: FERROUS SULFATE 325 MG (IRON) TABLET PO SCH ×2 (09:24→17:20)
[2016-07-29] MEDS: DOCUSATE SODIUM 100 MG (COLACE) CAP PO SCH ×2 (09:24→21:06)
[2016-07-29] MEDS: PIPERACILLIN/TAZOBACTAM 3.375 GM in SODIUM CHLORIDE 100 ML IV SCH ×2 (09:24→21:06)
[2016-07-29] MEDS: LIDOCAINE (LIDODERM) 5% PATCH TOP SCH (09:25)
--- NOTE | 2016-07-29 11:02 | NUR ---
PRN Dilaudid provided for c/o lower back pain rated 5/10 on scale. Vanco trough reported to pharmacist and 1000 dose infusing now. Repositioned patient for comfort. Will continue to monitor.
[2016-07-29] MEDS: VANCOMYCIN 1,000 MG in SODIUM CHLORIDE 250 ML IV SCH (11:30)
[2016-07-29 11:55] VITALS: BP 139/75
--- NOTE | 2016-07-29 14:23 | NUR ---
Vancomycin Dosing: Pharmacy Managed S: SIRS/probable sepsis with unknown source of infection O: Blood cx still negative but continues with increased WBC of 19. A/P: Will increase Vanco 1g q 36h to Vanco 750mg q24h with a predicted trough of 14.95mg/L to be drawn prior to 4th dose on 08/02/16 @ 0830.
[2016-07-29] MEDS ORDERED: FUROSEMIDE 40 MG/4 ML (LASIX) VIAL IV SCH (15:07)
--- NOTE | 2016-07-29 15:16 | Progress Note (E) ---
Progress Note SUBJECTIVE Continues to decline. Very restless and disoriented at times, calls out frequently. Pulls gown off. Has sensation of something binging his legs. On escalated antibiotic, WBC slightly improved to 19.37. Hgb 9.7. 84% N with 1% bands. Had been fairly uremic on earlier chemistry with BUN up to 88. Currently 63. Cr stable at 2.18. CRP improving, now 7.10 from 16.30 peak. NT-pro-BNP indeed elevated and furosemide was already started yesterday. Na elevated at 151. Increasing furosemide dose to drive further diuresis, but rising Na noted. Had to increase hydromorphone because of back pain. X-ray L-spine showed severe degenerative changes. Can't rule out compression fracture because of osteopenia. OBJECTIVE Vital Signs Date Time Temp Pulse Resp B/P Pulse Ox O2 Delivery O2 Flow Rate FiO2 07/29/16 11:55 97.0 118 18 139/75 98 Nasal cannula 07/29/16 07:59 2.00 I & O 07/28/16 07/29/16 Cumulative From/Thru 19:00 07:00 07/21/16 18:10 - 07/29/16 06:33 Intake Total 713 ml 487 ml 39008 ml Output Total 1250 ml Balance 713 ml 487 ml 44734 ml GEN: In bed, restless, disoriented, tugging at gown and covers. HEENT: EOMI, clear sclerae, somewhat dry oral mucosa. IJ to right side of neck. CV: irregular, S1 S2 audible without significant murmur. PULM: Diminished bases without R/R/W. ABD: Soft, diffusely and mildly tender to palpation. Active bowel sounds. EXTR: Pulses intact in DP bilaterally. Radial pulses intact. 1+ pedal edema. INTEG: Pallor. Age related changes. Stage 2 pressure ulcer right buttock. Stage 1 pressure ulcer left buttock. Both present on admit. NEURO: Psychomotor slowing. Generalized, but no focal weakness. Weight: 79.0 kg (69.3 kg on admit) Lab-Past 14 Days, 35 Results 07/21/16 19:02: Absolute Band Neutrophils 4.6, Anion Gap 28.1H, Anisocytosis Slight, BUN/ Creatinine Ratio 47H, Band Neutrophils % 12H, Basophils # (Auto) , Basophils # ( Manual) 0.0, Basophils % (Manual) 0, Basophils (%) (Auto) , Blood Morphology Comment See reference, Blood Urea Nitrogen 210#H, Calcium Level 9.9, Carbon Dioxide Level 19L, Chloride Level 94L, Creatinine 4.43#*H, Differential Total Cells Counted 100, Eosinophils # 0.0, Eosinophils # (Auto) , Eosinophils % ( Manual) 0, Eosinophils (%) (Auto) , Estimat Glomerular Filtration Rate 15.6, Estimated GFR (Non- 12.9, Glucose Level 133H, Hematocrit 19.50#* L, Hemoglobin 6.2#*L, Lymphocytes # 1.2, Lymphocytes # (Auto) , Lymphocytes % ( Manual) 3L, Lymphocytes (%) (Auto) , Mean Corpuscular Hemoglobin 24.4L, Mean Corpuscular Hemoglobin Concent 31.8, Mean Corpuscular Volume 77L, Mean Platelet Volume 9.1, Metamyelocytes % 3H, Microcytosis Slight, Monocytes # 0.8, Monocytes # (Auto) , Monocytes % (Manual) 2L, Monocytes (%) (Auto) , Neutrophils # 30.6, Neutrophils # (Auto) , Neutrophils (%) (Auto) , Platelet Count 679#H, Polychromasia Slight, Potassium Level 3.4L, Red Blood Count 2.54L, Red Cell Distribution Width 18.9H, Schistocytes Slight, Segmented Neutrophils % 80H, Sodium Level 137, White Blood Count 38.29*H 07/21/16 21:00: C-Reactive Protein 3.10H, Lactic Acid Level 2.5H, NV-Obn-K-Type Natriuretic Peptide 763H 07/22/16 00:15: Urine Bacteria None seen, Urine Bilirubin Negative, Urine Blood Negative, Urine Clarity Clear, Urine Collection Type Clean catch, Urine Color Yellow, Urine Glucose (UA) Negative, Urine Hyaline Casts Rare, Urine Ketones Negative, Urine Leukocyte Esterase Negative, Urine Microscopic RBC 0-2, Urine Nitrite Negative, Urine Protein TraceH, Urine Renal Epithelial Cells 0-2, Urine Specific [place] 1.010, Urine Squamous Epithelial Cells 10-20, Urine Urobilinogen 0.2, Urine WBC 2-5, Urine pH 5.5, Volume Urine Centrifuged 12 ml 07/22/16 05:10: Absolute Band Neutrophils 0.8, Anion Gap 22.5H, Anisocytosis Marked, BUN/ Creatinine Ratio 45H, Band Neutrophils % 3, Basophils # (Auto) , Basophils (%) ( Auto) , Blood Morphology Comment See reference, Blood Urea Nitrogen 187H, Calcium Level 9.2, Carbon Dioxide Level 21L, Chloride Level 98, Creatinine 4.17* H, Differential Total Cells Counted 100, Eosinophils # (Auto) , Eosinophils (%) (Auto) , Estimat Glomerular Filtration Rate 16.7, Estimated GFR (Non- 13.8, Glucose Level 112H, Hematocrit 23.80L, Hemoglobin 7.8L, Lymphocytes # 1.4, Lymphocytes # (Auto) , Lymphocytes % (Manual) 5L, Lymphocytes (%) (Auto) , Mean Corpuscular Hemoglobin 25.4L, Mean Corpuscular Hemoglobin Concent 32.8, Mean Corpuscular Volume 78L, Mean Platelet Volume 8.8, Microcytosis Moderate, Monocytes # 2.2, Monocytes # (Auto) , Monocytes % (Manual ) 8, Monocytes (%) (Auto) , Neutrophils # 23.6, Neutrophils # (Auto) , Neutrophils (%) (Auto) , Platelet Count 543H, Polychromasia Slight, Potassium Level 2.9L, Red Blood Count 3.07L, Red Cell Distribution Width 19.1H, Segmented Neutrophils % 83H, Sodium Level 139, White Blood Count 28.47H, Acanthocytes Slight, Basophilic Stippling Moderate, Hypochromasia Slight, Myelocytes 1, Poikilocytosis Moderate, Smear Scan 07/22/16 12:20: Gastric Fluid Occult Blood PositiveH 07/23/16 08:15: Absolute Band Neutrophils 0.2, Anion Gap 16.5H, Anisocytosis Slight, BUN/ Creatinine Ratio 41H, Band Neutrophils % 1, Basophils # (Auto) , Basophils # ( Manual) 0.0, Basophils % (Manual) 0, Basophils (%) (Auto) , Blood Morphology Comment See reference, Blood Urea Nitrogen 148H, Calcium Level 9.7, Carbon Dioxide Level 25, Chloride Level 107, Creatinine 3.57H, Differential Total Cells Counted 100, Eosinophils # 0.0, Eosinophils # (Auto) , Eosinophils % ( Manual) 0, Eosinophils (%) (Auto) , Estimat Glomerular Filtration Rate 20.0, Estimated GFR (Non- 16.5, Glucose Level 123H, Hematocrit 22.70L , Hemoglobin 7.5L, Lymphocytes # 0.6, Lymphocytes # (Auto) , Lymphocytes % ( Manual) 3L, Lymphocytes (%) (Auto) , Mean Corpuscular Hemoglobin 25.9L, Mean Corpuscular Hemoglobin Concent 33.0, Mean Corpuscular Volume 78L, Mean Platelet Volume 8.4, Metamyelocytes % 2H, Microcytosis Slight, Monocytes # 1.6, Monocytes # (Auto) , Monocytes % (Manual) 8, Monocytes (%) (Auto) , Neutrophils # 18.0, Neutrophils # (Auto) , Neutrophils (%) (Auto) , Platelet Count 489H, Polychromasia Slight, Potassium Level 2.9L, Red Blood Count 2.90L, Red Cell Distribution Width 19.4H, Segmented Neutrophils % 86H, Sodium Level 146#, White Blood Count 20.93H 07/24/16 05:40: Absolute Band Neutrophils 0.4, Anion Gap 13.1, Anisocytosis Moderate, BUN/ Creatinine Ratio 40H, Band Neutrophils % 2, Basophils # (Auto) , Basophils # ( Manual) 0.0, Basophils % (Manual) 0, Basophils (%) (Auto) , Blood Morphology Comment See reference, Blood Urea Nitrogen 111H, Calcium Level 10.0, Carbon Dioxide Level 25, Chloride Level 110H, Creatinine 2.80H, Differential Total Cells Counted 100, Eosinophils # 0.0, Eosinophils # (Auto) , Eosinophils % ( Manual) 0, Eosinophils (%) (Auto) , Estimat Glomerular Filtration Rate 26.5, Estimated GFR (Non- 21.9, Glucose Level 129H, Hematocrit 21.70L , Hemoglobin 6.9*L, Lymphocytes # 0.4, Lymphocytes # (Auto) , Lymphocytes % ( Manual) 2L, Lymphocytes (%) (Auto) , Mean Corpuscular Hemoglobin 25.5L, Mean Corpuscular Hemoglobin Concent 31.8, Mean Corpuscular Volume 80, Mean Platelet Volume 8.1, Monocytes # 2.0, Monocytes # (Auto) , Monocytes % (Manual) 9, Monocytes (%) (Auto) , Neutrophils # 19.2, Neutrophils # (Auto) , Neutrophils (% ) (Auto) , Platelet Count 448, Potassium Level 3.7#, Red Blood Count 2.70L, Red Cell Distribution Width 19.7H, Segmented Neutrophils % 87H, Sodium Level 144, White Blood Count 22.07H 07/25/16 05:35: Absolute Band Neutrophils 0.0, Anion Gap 17.6H, Anisocytosis Slight, Band Neutrophils % 0, Basophils # (Auto) , Basophils # (Manual) 0.0, Basophils % ( Manual) 0, Basophils (%) (Auto) , Blood Morphology Comment See reference, Blood Urea Nitrogen 88H, Calcium Level 10.9H, Carbon Dioxide Level 24, Chloride Level 110H, Creatinine 2.21H, Differential Total Cells Counted 100, Eosinophils # 0.0 , Eosinophils # (Auto) , Eosinophils % (Manual) 0, Eosinophils (%) (Auto) , Estimat Glomerular Filtration Rate 34.8, Estimated GFR (Non- 28.7, Glucose Level 136H, Hematocrit 30.10L, Hemoglobin 9.7L, Lymphocytes # 0.7 , Lymphocytes # (Auto) , Lymphocytes % (Manual) 3L, Lymphocytes (%) (Auto) , Mean Corpuscular Hemoglobin 26.5, Mean Corpuscular Hemoglobin Concent 32.2, Mean Corpuscular Volume 82, Mean Platelet Volume 8.9, Metamyelocytes % 1, Monocytes # 3.1, Monocytes # (Auto) , Monocytes % (Manual) 14H, Monocytes (%) ( Auto) , Neutrophils # 18.8, Neutrophils # (Auto) , Neutrophils (%) (Auto) , Platelet Count 427, Potassium Level 3.9, Red Blood Count 3.66L, Red Cell Distribution Width 19.0H, Segmented Neutrophils % 82H, Sodium Level 148, White Blood Count 22.91H, Albumin 3.1#L, C-Reactive Protein 16.30H, Magnesium Level 2.0, Phosphorus Level 4.7#, Poikilocytosis Slight 07/26/16 05:30: Absolute Band Neutrophils 0.4, Albumin 3.4, Anion Gap 19.1H, Anisocytosis Slight , Band Neutrophils % 2, Basophils # (Auto) , Basophils # (Manual) 0.0, Basophils % (Manual) 0, Basophils (%) (Auto) , Blood Morphology Comment See reference, Blood Urea Nitrogen 77H, Calcium Level 11.3H, Carbon Dioxide Level 22 , Chloride Level 109H, Creatinine 2.11H, Differential Total Cells Counted 100, Eosinophils # 0.0, Eosinophils # (Auto) , Eosinophils % (Manual) 0, Eosinophils (%) (Auto) , Estimat Glomerular Filtration Rate 36.7, Estimated GFR (Non- 30.3, Glucose Level 123H, Hematocrit 31.30L, Hemoglobin 9.9L, Lymphocytes # 1.3, Lymphocytes # (Auto) , Lymphocytes % (Manual) 6L, Lymphocytes (%) (Auto) , Mean Corpuscular Hemoglobin 26.0, Mean Corpuscular Hemoglobin Concent 31.6, Mean Corpuscular Volume 82, Mean Platelet Volume 9.0, Metamyelocytes % 0, Monocytes # 2.1, Monocytes # (Auto) , Monocytes % (Manual) 10, Monocytes (%) (Auto) , Neutrophils # 18.0, Neutrophils # (Auto) , Neutrophils (%) (Auto) , Phosphorus Level 4.5, Platelet Count 462H, Poikilocytosis Slight, Potassium Level 3.9, Red Blood Count 3.81L, Red Cell Distribution Width 19.6H, Segmented Neutrophils % 82H, Sodium Level 147, White Blood Count 21.95H 07/27/16 06:10: Albumin 3.5, Anion Gap 19.3H, Anisocytosis Moderate, Basophils # (Auto) , Basophils (%) (Auto) , Blood Morphology Comment See reference, Blood Urea Nitrogen 78H, Calcium Level 11.6H, Carbon Dioxide Level 24, Chloride Level 109H , Creatinine 2.15H, Differential Total Cells Counted 100, Eosinophils # (Auto) , Eosinophils (%) (Auto) , Estimat Glomerular Filtration Rate 35.9, Estimated GFR (Non- 29.7, Glucose Level 112H, Hematocrit 32.00L, Hemoglobin 10.2L, Lymphocytes # 0.5, Lymphocytes # (Auto) , Lymphocytes % ( Manual) 2L, Lymphocytes (%) (Auto) , Mean Corpuscular Hemoglobin 26.5, Mean Corpuscular Hemoglobin Concent 31.9, Mean Corpuscular Volume 83, Mean Platelet Volume 8.7, Monocytes # 1.1, Monocytes # (Auto) , Monocytes % (Manual) 5, Monocytes (%) (Auto) , Neutrophils # 20.8, Neutrophils # (Auto) , Neutrophils (% ) (Auto) , Phosphorus Level 5.4H, Platelet Count 482H, Poikilocytosis Slight, Potassium Level 4.1, Red Blood Count 3.85L, Red Cell Distribution Width 19.5H, Segmented Neutrophils % 93H, Sodium Level 148, White Blood Count 22.36H, Basophilic Stippling Slight, C-Reactive Protein 12.80H, Hypochromasia Slight, Microcytosis Slight 07/29/16 05:25: Absolute Band Neutrophils 0.2, Albumin 3.3L, Anion Gap 18.2H, Anisocytosis Moderate, Band Neutrophils % 1, Basophils # (Auto) , Basophils # (Manual) 0.0, Basophils % (Manual) 0, Basophils (%) (Auto) , Blood Morphology Comment See reference, Blood Urea Nitrogen 63H, Calcium Level 12.1H, Carbon Dioxide Level 26 , Chloride Level 110H, Creatinine 2.18H, Differential Total Cells Counted 100, Eosinophils # 0.0, Eosinophils # (Auto) , Eosinophils % (Manual) 0, Eosinophils (%) (Auto) , Estimat Glomerular Filtration Rate 35.3, Estimated GFR (Non- 29.2, Glucose Level 112H, Hematocrit 31.50L, Hemoglobin 9.7L, Lymphocytes # 1.2, Lymphocytes # (Auto) , Lymphocytes % (Manual) 6L, Lymphocytes (%) (Auto) , Mean Corpuscular Hemoglobin 26.1, Mean Corpuscular Hemoglobin Concent 30.8L, Mean Corpuscular Volume 85, Mean Platelet Volume 8.6, Metamyelocytes % 0, Monocytes # 1.7, Monocytes # (Auto) , Monocytes % (Manual) 9 , Monocytes (%) (Auto) , Neutrophils # 16.3, Neutrophils # (Auto) , Neutrophils (%) (Auto) , Phosphorus Level 5.7H, Platelet Count 394, Poikilocytosis Slight, Potassium Level 4.0, Red Blood Count 3.71L, Red Cell Distribution Width 20.1H, Segmented Neutrophils % 84H, Sodium Level 151H, White Blood Count 19.37H, Basophilic Stippling Slight, C-Reactive Protein 7.10H, Microcytosis Slight, Magnesium Level 1.8, ND-Oaw-O-Type Natriuretic Peptide 2980H 07/29/16 10:30: Vancomycin Level Trough 11.2 MICRO 07/26 Blood culture Negative to date 07/21 Blood culture Negative to date IMAGING 07/28/16 LUMBAR SPINE - 2-3 VIEWS INDICATION: Back pain after fall. Two views were obtained. FINDINGS: There is grade 2 spondylolisthesis of L5 on S1. There is moderate degenerative disc disease at L4-5. The vertebral body heights are relatively well-maintained. There is marked lower lumbar hypertrophic degenerative facet disease. IMPRESSION: Severe degenerative changes in lower lumbar spine most of which appear chronic. In light of the osteopenia, possibility of an occult or early compression fracture cannot be entirely excluded. Recommend clinical correlation and if warranted followup with MRI. 07/26/16 CHEST PA/LAT (2 VIEW)* INDICATION: Respiratory distress. COMPARISON: and CT chest from 01/26/2016. FINDINGS: The left midlung zone pulmonary nodule is similar. No new airspace disease. No pleural effusion or pneumothorax. Stable left-sided pleural thickening. Stable right jugular central venous catheter. Stable mild cardiomegaly with a tortuous aorta. IMPRESSION: 1. Stable left midlung zone pulmonary nodule and left-sided pleural thickening. 2. No definite new airspace disease or pleural effusion. 3. A followup CT chest should be considered for assessment of stability of the left pulmonary nodule as it appears larger than on the chest x-ray from 2015. 07/21/16 CHEST 1 VIEW, AP/PA ONLY* INDICATION: Elevated white blood cell count. COMPARISON: 03/27/2016. FINDINGS: A left lung nodule measuring 2.8 cm is present and is likely increased in size when compared to CT from January 2016. Air trapping and COPD chronic. No effusion or pneumothorax. IMPRESSION: Increasing size of left upper lobe lung mass laterally measuring at least 2.7 cm today, on earlier CT it was about 1.6 cm. COPD. No other change. 07/21/16 CHEST 1 VIEW, AP/PA ONLY* INDICATION: Central line placement Portable chest 9:41 PM Right jugular central line tip projects over the right innominate vein. There is a 2 cm pulmonary nodule left mid lateral lung as well as some pleural thickening in the left lower lateral chest adjacent to this. The right lung is clear. There is no effusion or pneumothorax. There appears to be some emphysematous change in the lungs. IMPRESSION: Pleural thickening and pulmonary nodule left lung unchanged from previous day. ASSESSMENT Addy Fragoso is a 80 year old male admitted from home 07/24 with SIRS and probable sepsis though source on admit was uncertain. He met criteria on admit with HR > 90 and leukocytosis. He had acute on chronic hypoxic respiratory failure as well. He has underlying lung cancer with a primary pulmonary nodule in the left lung that has grown since prior CT scan 03/2016. He had marked anemia on admit. He has numerous chronic medical problems. Prior to this admit he had been on home hospice service but he revoked this. He has had prolonged hospitalization due to persistent respiratory distress, persistent leukocytosis (without definitive source of infection) and generalized deconditioning. PLAN * SIRS, probable sepsis: Source of infection uncertain. Leukocytosis improved since admit but then remained persistently elevated. Blood cultures negative to date. CXR less consistent with pneumonia. Got ceftriaxone and azithromycin empirically on admit. Of note, he had bacteremia 03/2016 with Staph epidermidis that had some drug resistances. If diarrhea noted, check for C diff. * Leukocytosis: WBC 38.29 on admit, initially improved but now stagnant . Infectious? Reactive to anemia? Initial blood culture negative. Repeat blood culture negative. Since WBC not improving, escalated antibiotic 07/26 to pip- tazo and vanco. * Acute on Chronic Hypoxic Respiratory Failure: Oxygen protocol. IS. * Iron Deficiency Anemia: Hgb on admit 6.2. Stool positive for occult blood. Got 2 units on admit. Additional 2 units 07/24. Transfuse for Hgb < 8. Iron supplement. * COPD with Acute Exacerbation: Acute exacerbation resolving. No apparent pneumonia on CXR. Could be bronchitis. Duoneb scheduled. Albuterol PRN. * FRANCISCO: Creatinine was 4.17 on admit, improving gradually, 2.21 07/25. Monitor trend. * Non-Small Cell Lung Cancer: On the basis of biopsy 02/15. Has declined further workup or treatment for this. Had been on hospice for two weeks prior to this admit, but he has since revoked that. Nodule growing in size compared to CT scan from March 2016. For now, observe. * Back Pain: L-spine plain film as noted. Hydrocodone/acetaminophen, hydromorphone, lidoderm. PT/OT deferred because of pain, irritability. * Falls at Home: PT/OT deferred because of pain, irritability. * Pressure Ulcers: Stage 1 left buttock, stage 2 right buttock, present on admit. Due to him sitting in chair for long periods of time at home. Pressure relieving strategies. Mepilex. * Pedal Edema: JOHN kebede. Started furosemide 07/28. * Constipation: Bowel regimen. Scheduled dosing until constipation improves. * Deconditioning: He does not want to participate with PT/OT so this has not been ordered. * Delirium: Getting worse. Added low-dose quetiapine 07/29. * F/E/N: Soft diet. Stopped IVF 07/24. Right IJ central line. * Prophylaxis: SCDs * Code Status: DNR * Dispo: Inpatient. Had been on hospice prior to this admit but took himself off. Have had conversation with daughter regarding code status, DPOA-HC. At present, patient has some periods of confusion but has some limited capacity. Overall prognosis poor. Family meeting at 1830 07/26 and he wants to continue therapy but elected DNR. Will not be able to return home and is agreeable to placement at [facility] when appropriate. Uncertain end-points for this hospitalization but he is not well enough for discharge. Working on edema, constipation, leukocytosis, back pain, delirium. CHRONIC ISSUES * Gout: Off allopurinol. * Diabetes Mellitus Type II: A1C 5.8 on prior admit. Metformin on hold. Sliding scale. * HTN: Indapamide, losartan, metoprolol all on hold. * Prostate Cancer: S/P radiation. Observe. * Pulmonary Hypertension: Oxygen * GERD: pantoprazole ALEAH BARRIENTOS MD Jul 29, 2016 15:16
[2016-07-29 15:42] VITALS: BP 116/53
--- NOTE | 2016-07-29 16:30 | NUR ---
Order to discontinue RIJ received. Discontinued with catheter intact. Patient tolerates well. Pressure held for full 5 minutes. Pressure dressing intact. Will continue to monitor.
--- NOTE | 2016-07-29 17:20 | NUR ---
IAM Arriaga provided for continued c/o back pain. Assisted to recliner with 2 assist per patient request. Will continue to monitor.
--- NOTE | 2016-07-29 17:30 | NUR ---
Pt. is very uncomfortable, c\o back pain. [place]. tx. well with NPC, O2 @ 2L nc, 97%.
[2016-07-29 19:46] VITALS: BP 131/65
[2016-07-29] MEDS: QUEtiapine 25 MG (SEROquel) TAB IMMEDIATE RELEASE PO SCH (21:06)
[2016-07-29] MEDS: PATCH REMOVAL TOP SCH (21:18)
[2016-07-30 00:44] VITALS: BP 133/62
[2016-07-30 03:58] VITALS: BP 93/43
[2016-07-30] MEDS: ALBUTEROL/IPRATROPIUM 3MG-0.5MG/3ML (DUONEB) NEB VIAL INH SCH ×4 (05:56→23:00)
[2016-07-30 06:14] LABS: MEAN CORPUSCULAR VOLUME 85 FL (80-100); MEAN PLATELET VOLUME 8.6 FL (6.0-9.5); PLATELET COUNT 308 10^3uL (150-450); WHITE BLOOD COUNT 17.84 10^3uL (4.0-11.0)
[2016-07-30] MEDS: PANTOPRAZOLE 40 MG (PROTONIX) TAB PO SCH (06:14)
[2016-07-30] MEDS: HYDROcodone/APAP 7.5 MG/325 MG (NORCO) TABLET PO PRN ×2 (06:15→17:37)
[2016-07-30 06:19] LABS: MEAN CORPUSCULAR HEMOGLOBIN 26.4 PG (26.0-34.0); MEAN CORPUSCULAR HGB CONC 31.1 g/dL (31.0-37.0)
--- NOTE | 2016-07-30 06:47 | NUR ---
Patient rests in bed throughout night, is completely incontinent. Confused. Appears comfortable after administration of dilaudid, this am is yelling out but does not seem to know what he needs when he asks for help. Turn and change completed, patient resting in bed with eyes closed, gown off.
[2016-07-30] MEDS: INSULIN LISPRO 1 UNIT/0.01 ML (HUMALOG) DOSE SC SCH ×4 (06:49→21:00)
[2016-07-30 06:51] LABS: ALBUMIN 3.2 g/dL (3.4-5.0); ANION GAP 20.7 MEQ/L (3-15); MAGNESIUM* 1.8 mg/dL (1.6-2.3)
[2016-07-30 07:29] LABS: BAND NEUTROPHILS % 6 % (0-6); EOSINOPHILS % 0 % (0-4); LYMPHOCYTES # 0.5 #; MONOCYTES # 0.7 #; MONOCYTES % 4 % (3-11); SEGMENTED NEUTROPHILS % 87 % (51-67); TOTAL CELLS COUNTED 100
[2016-07-30 07:30] LABS: ANISOCYTOSIS MODERATE; POIKILOCYTOSIS SLIGHT; RBC MORPH SEE REFERENCE (NORMAL)
[2016-07-30] MEDS: HYDROmorphone 1 MG/ML (DILAUDID) SYRINGE IV PRN ×5 (07:46→20:43)
[2016-07-30 08:12] VITALS: BP 102/56
[2016-07-30] MEDS ORDERED: VANCOMYCIN 750 MG in NORMAL SALINE 150 ML IV SCH (09:00)
[2016-07-30] MEDS ORDERED: VANCOMYCIN COMPOUNDED BY PHARMACY IV SCH (09:00)
--- NOTE | 2016-07-30 09:09 | Progress Note (E) ---
Progress Note SUBJECTIVE Mental status continues to decline. However, vitals are stable. Weight is down with furosemide but sodium is increased. Stopping furosemide. Back pain persists. Still able to transfer but requires 2 person assist. Right IJ was removed as ordered. WBC showing further slow improvement, now down to 17.84 with 87% N and 6% B. Hgb stable at 9.9. CRP also showing improvent, 12.80 07/27 , 7.10 07/29. Remains on pip-tazo and vanco empirically. Of note, has not had head imaging. Planning CT head today because of mental status decline, lung cancer. Cannot use IV contrast because of FRANCISCO. On exam today, he is resting in bed. Appears a bit more well-rested. Awake and answers questions with head nod and faint answers of yes or no. Does endorse back pain but says pain medicine does help. Initially shook head when discussing CT head but after explaining, gives permission to do this. OBJECTIVE Vital Signs Date Time Temp Pulse Resp B/P Pulse Ox O2 Delivery O2 Flow Rate FiO2 07/30/16 08:12 97.5 68 18 102/56 98 Nasal cannula 2.00 I & O 07/29/16 07/30/16 Cumulative From/Thru 19:00 07:00 07/21/16 18:10 - 07/30/16 05:27 Intake Total 433 ml 200 ml 08346 ml Output Total 1250 ml Balance 433 ml 200 ml 20608 ml GEN: In bed, restless, appears a bit more relaxed compared to 07/29. Awake, somewhat interactive. HEENT: EOMI, clear sclerae, very dry oral tongue. Dressing to site of prior right IJ. CV: irregular, S1 S2 audible without significant murmur. PULM: Diminished bases. Some audible wheezing, left anterior lung field. ABD: Soft, diffusely and mildly tender to palpation. Active bowel sounds. EXTR: Pulses intact in DP bilaterally. Radial pulses intact. Trace BLE edema. ( Improved after getting furosemide.) INTEG: Pallor. Age related changes. Stage 2 pressure ulcer right buttock. Stage 1 pressure ulcer left buttock. Both present on admit. NEURO: Psychomotor slowing. Generalized, but no focal weakness. Weight: 76.6 kg (69.3 kg on admit) Lab-Past 14 Days, 35 Results 07/21/16 19:02: Absolute Band Neutrophils 4.6, Anion Gap 28.1H, Anisocytosis Slight, BUN/ Creatinine Ratio 47H, Band Neutrophils % 12H, Basophils # (Auto) , Basophils # ( Manual) 0.0, Basophils % (Manual) 0, Basophils (%) (Auto) , Blood Morphology Comment See reference, Blood Urea Nitrogen 210#H, Calcium Level 9.9, Carbon Dioxide Level 19L, Chloride Level 94L, Creatinine 4.43#*H, Differential Total Cells Counted 100, Eosinophils # 0.0, Eosinophils # (Auto) , Eosinophils % ( Manual) 0, Eosinophils (%) (Auto) , Estimat Glomerular Filtration Rate 15.6, Estimated GFR (Non- 12.9, Glucose Level 133H, Hematocrit 19.50#* L, Hemoglobin 6.2#*L, Lymphocytes # 1.2, Lymphocytes # (Auto) , Lymphocytes % ( Manual) 3L, Lymphocytes (%) (Auto) , Mean Corpuscular Hemoglobin 24.4L, Mean Corpuscular Hemoglobin Concent 31.8, Mean Corpuscular Volume 77L, Mean Platelet Volume 9.1, Metamyelocytes % 3H, Microcytosis Slight, Monocytes # 0.8, Monocytes # (Auto) , Monocytes % (Manual) 2L, Monocytes (%) (Auto) , Neutrophils # 30.6, Neutrophils # (Auto) , Neutrophils (%) (Auto) , Platelet Count 679#H, Polychromasia Slight, Potassium Level 3.4L, Red Blood Count 2.54L, Red Cell Distribution Width 18.9H, Schistocytes Slight, Segmented Neutrophils % 80H, Sodium Level 137, White Blood Count 38.29*H 07/21/16 21:00: C-Reactive Protein 3.10H, Lactic Acid Level 2.5H, XL-Jqf-H-Type Natriuretic Peptide 763H 07/22/16 00:15: Urine Bacteria None seen, Urine Bilirubin Negative, Urine Blood Negative, Urine Clarity Clear, Urine Collection Type Clean catch, Urine Color Yellow, Urine Glucose (UA) Negative, Urine Hyaline Casts Rare, Urine Ketones Negative, Urine Leukocyte Esterase Negative, Urine Microscopic RBC 0-2, Urine Nitrite Negative, Urine Protein TraceH, Urine Renal Epithelial Cells 0-2, Urine Specific Russell 1.010, Urine Squamous Epithelial Cells 10-20, Urine Urobilinogen 0.2, Urine WBC 2-5, Urine pH 5.5, Volume Urine Centrifuged 12 ml 07/22/16 05:10: Absolute Band Neutrophils 0.8, Anion Gap 22.5H, Anisocytosis Marked, BUN/ Creatinine Ratio 45H, Band Neutrophils % 3, Basophils # (Auto) , Basophils (%) ( Auto) , Blood Morphology Comment See reference, Blood Urea Nitrogen 187H, Calcium Level 9.2, Carbon Dioxide Level 21L, Chloride Level 98, Creatinine 4.17* H, Differential Total Cells Counted 100, Eosinophils # (Auto) , Eosinophils (%) (Auto) , Estimat Glomerular Filtration Rate 16.7, Estimated GFR (Non- 13.8, Glucose Level 112H, Hematocrit 23.80L, Hemoglobin 7.8L, Lymphocytes # 1.4, Lymphocytes # (Auto) , Lymphocytes % (Manual) 5L, Lymphocytes (%) (Auto) , Mean Corpuscular Hemoglobin 25.4L, Mean Corpuscular Hemoglobin Concent 32.8, Mean Corpuscular Volume 78L, Mean Platelet Volume 8.8, Microcytosis Moderate, Monocytes # 2.2, Monocytes # (Auto) , Monocytes % (Manual ) 8, Monocytes (%) (Auto) , Neutrophils # 23.6, Neutrophils # (Auto) , Neutrophils (%) (Auto) , Platelet Count 543H, Polychromasia Slight, Potassium Level 2.9L, Red Blood Count 3.07L, Red Cell Distribution Width 19.1H, Segmented Neutrophils % 83H, Sodium Level 139, White Blood Count 28.47H, Acanthocytes Slight, Basophilic Stippling Moderate, Hypochromasia Slight, Myelocytes 1, Poikilocytosis Moderate, Smear Scan 07/22/16 12:20: Gastric Fluid Occult Blood PositiveH 07/23/16 08:15: Absolute Band Neutrophils 0.2, Anion Gap 16.5H, Anisocytosis Slight, BUN/ Creatinine Ratio 41H, Band Neutrophils % 1, Basophils # (Auto) , Basophils # ( Manual) 0.0, Basophils % (Manual) 0, Basophils (%) (Auto) , Blood Morphology Comment See reference, Blood Urea Nitrogen 148H, Calcium Level 9.7, Carbon Dioxide Level 25, Chloride Level 107, Creatinine 3.57H, Differential Total Cells Counted 100, Eosinophils # 0.0, Eosinophils # (Auto) , Eosinophils % ( Manual) 0, Eosinophils (%) (Auto) , Estimat Glomerular Filtration Rate 20.0, Estimated GFR (Non- 16.5, Glucose Level 123H, Hematocrit 22.70L , Hemoglobin 7.5L, Lymphocytes # 0.6, Lymphocytes # (Auto) , Lymphocytes % ( Manual) 3L, Lymphocytes (%) (Auto) , Mean Corpuscular Hemoglobin 25.9L, Mean Corpuscular Hemoglobin Concent 33.0, Mean Corpuscular Volume 78L, Mean Platelet Volume 8.4, Metamyelocytes % 2H, Microcytosis Slight, Monocytes # 1.6, Monocytes # (Auto) , Monocytes % (Manual) 8, Monocytes (%) (Auto) , Neutrophils # 18.0, Neutrophils # (Auto) , Neutrophils (%) (Auto) , Platelet Count 489H, Polychromasia Slight, Potassium Level 2.9L, Red Blood Count 2.90L, Red Cell Distribution Width 19.4H, Segmented Neutrophils % 86H, Sodium Level 146#, White Blood Count 20.93H 07/24/16 05:40: Absolute Band Neutrophils 0.4, Anion Gap 13.1, Anisocytosis Moderate, BUN/ Creatinine Ratio 40H, Band Neutrophils % 2, Basophils # (Auto) , Basophils # ( Manual) 0.0, Basophils % (Manual) 0, Basophils (%) (Auto) , Blood Morphology Comment See reference, Blood Urea Nitrogen 111H, Calcium Level 10.0, Carbon Dioxide Level 25, Chloride Level 110H, Creatinine 2.80H, Differential Total Cells Counted 100, Eosinophils # 0.0, Eosinophils # (Auto) , Eosinophils % ( Manual) 0, Eosinophils (%) (Auto) , Estimat Glomerular Filtration Rate 26.5, Estimated GFR (Non- 21.9, Glucose Level 129H, Hematocrit 21.70L , Hemoglobin 6.9*L, Lymphocytes # 0.4, Lymphocytes # (Auto) , Lymphocytes % ( Manual) 2L, Lymphocytes (%) (Auto) , Mean Corpuscular Hemoglobin 25.5L, Mean Corpuscular Hemoglobin Concent 31.8, Mean Corpuscular Volume 80, Mean Platelet Volume 8.1, Monocytes # 2.0, Monocytes # (Auto) , Monocytes % (Manual) 9, Monocytes (%) (Auto) , Neutrophils # 19.2, Neutrophils # (Auto) , Neutrophils (% ) (Auto) , Platelet Count 448, Potassium Level 3.7#, Red Blood Count 2.70L, Red Cell Distribution Width 19.7H, Segmented Neutrophils % 87H, Sodium Level 144, White Blood Count 22.07H 07/25/16 05:35: Absolute Band Neutrophils 0.0, Anion Gap 17.6H, Anisocytosis Slight, Band Neutrophils % 0, Basophils # (Auto) , Basophils # (Manual) 0.0, Basophils % ( Manual) 0, Basophils (%) (Auto) , Blood Morphology Comment See reference, Blood Urea Nitrogen 88H, Calcium Level 10.9H, Carbon Dioxide Level 24, Chloride Level 110H, Creatinine 2.21H, Differential Total Cells Counted 100, Eosinophils # 0.0 , Eosinophils # (Auto) , Eosinophils % (Manual) 0, Eosinophils (%) (Auto) , Estimat Glomerular Filtration Rate 34.8, Estimated GFR (Non- 28.7, Glucose Level 136H, Hematocrit 30.10L, Hemoglobin 9.7L, Lymphocytes # 0.7 , Lymphocytes # (Auto) , Lymphocytes % (Manual) 3L, Lymphocytes (%) (Auto) , Mean Corpuscular Hemoglobin 26.5, Mean Corpuscular Hemoglobin Concent 32.2, Mean Corpuscular Volume 82, Mean Platelet Volume 8.9, Metamyelocytes % 1, Monocytes # 3.1, Monocytes # (Auto) , Monocytes % (Manual) 14H, Monocytes (%) ( Auto) , Neutrophils # 18.8, Neutrophils # (Auto) , Neutrophils (%) (Auto) , Platelet Count 427, Potassium Level 3.9, Red Blood Count 3.66L, Red Cell Distribution Width 19.0H, Segmented Neutrophils % 82H, Sodium Level 148, White Blood Count 22.91H, Albumin 3.1#L, C-Reactive Protein 16.30H, Magnesium Level 2.0, Phosphorus Level 4.7#, Poikilocytosis Slight 07/26/16 05:30: Absolute Band Neutrophils 0.4, Albumin 3.4, Anion Gap 19.1H, Anisocytosis Slight , Band Neutrophils % 2, Basophils # (Auto) , Basophils # (Manual) 0.0, Basophils % (Manual) 0, Basophils (%) (Auto) , Blood Morphology Comment See reference, Blood Urea Nitrogen 77H, Calcium Level 11.3H, Carbon Dioxide Level 22 , Chloride Level 109H, Creatinine 2.11H, Differential Total Cells Counted 100, Eosinophils # 0.0, Eosinophils # (Auto) , Eosinophils % (Manual) 0, Eosinophils (%) (Auto) , Estimat Glomerular Filtration Rate 36.7, Estimated GFR (Non- 30.3, Glucose Level 123H, Hematocrit 31.30L, Hemoglobin 9.9L, Lymphocytes # 1.3, Lymphocytes # (Auto) , Lymphocytes % (Manual) 6L, Lymphocytes (%) (Auto) , Mean Corpuscular Hemoglobin 26.0, Mean Corpuscular Hemoglobin Concent 31.6, Mean Corpuscular Volume 82, Mean Platelet Volume 9.0, Metamyelocytes % 0, Monocytes # 2.1, Monocytes # (Auto) , Monocytes % (Manual) 10, Monocytes (%) (Auto) , Neutrophils # 18.0, Neutrophils # (Auto) , Neutrophils (%) (Auto) , Phosphorus Level 4.5, Platelet Count 462H, Poikilocytosis Slight, Potassium Level 3.9, Red Blood Count 3.81L, Red Cell Distribution Width 19.6H, Segmented Neutrophils % 82H, Sodium Level 147, White Blood Count 21.95H 07/27/16 06:10: Albumin 3.5, Anion Gap 19.3H, Anisocytosis Moderate, Basophils # (Auto) , Basophils (%) (Auto) , Blood Morphology Comment See reference, Blood Urea Nitrogen 78H, Calcium Level 11.6H, Carbon Dioxide Level 24, Chloride Level 109H , Creatinine 2.15H, Differential Total Cells Counted 100, Eosinophils # (Auto) , Eosinophils (%) (Auto) , Estimat Glomerular Filtration Rate 35.9, Estimated GFR (Non- 29.7, Glucose Level 112H, Hematocrit 32.00L, Hemoglobin 10.2L, Lymphocytes # 0.5, Lymphocytes # (Auto) , Lymphocytes % ( Manual) 2L, Lymphocytes (%) (Auto) , Mean Corpuscular Hemoglobin 26.5, Mean Corpuscular Hemoglobin Concent 31.9, Mean Corpuscular Volume 83, Mean Platelet Volume 8.7, Monocytes # 1.1, Monocytes # (Auto) , Monocytes % (Manual) 5, Monocytes (%) (Auto) , Neutrophils # 20.8, Neutrophils # (Auto) , Neutrophils (% ) (Auto) , Phosphorus Level 5.4H, Platelet Count 482H, Poikilocytosis Slight, Potassium Level 4.1, Red Blood Count 3.85L, Red Cell Distribution Width 19.5H, Segmented Neutrophils % 93H, Sodium Level 148, White Blood Count 22.36H, Basophilic Stippling Slight, C-Reactive Protein 12.80H, Hypochromasia Slight, Microcytosis Slight 07/29/16 05:25: Absolute Band Neutrophils 0.2, Albumin 3.3L, Anion Gap 18.2H, Anisocytosis Moderate, Band Neutrophils % 1, Basophils # (Auto) , Basophils # (Manual) 0.0, Basophils % (Manual) 0, Basophils (%) (Auto) , Blood Morphology Comment See reference, Blood Urea Nitrogen 63H, Calcium Level 12.1H, Carbon Dioxide Level 26 , Chloride Level 110H, Creatinine 2.18H, Differential Total Cells Counted 100, Eosinophils # 0.0, Eosinophils # (Auto) , Eosinophils % (Manual) 0, Eosinophils (%) (Auto) , Estimat Glomerular Filtration Rate 35.3, Estimated GFR (Non- 29.2, Glucose Level 112H, Hematocrit 31.50L, Hemoglobin 9.7L, Lymphocytes # 1.2, Lymphocytes # (Auto) , Lymphocytes % (Manual) 6L, Lymphocytes (%) (Auto) , Mean Corpuscular Hemoglobin 26.1, Mean Corpuscular Hemoglobin Concent 30.8L, Mean Corpuscular Volume 85, Mean Platelet Volume 8.6, Metamyelocytes % 0, Monocytes # 1.7, Monocytes # (Auto) , Monocytes % (Manual) 9 , Monocytes (%) (Auto) , Neutrophils # 16.3, Neutrophils # (Auto) , Neutrophils (%) (Auto) , Phosphorus Level 5.7H, Platelet Count 394, Poikilocytosis Slight, Potassium Level 4.0, Red Blood Count 3.71L, Red Cell Distribution Width 20.1H, Segmented Neutrophils % 84H, Sodium Level 151H, White Blood Count 19.37H, Basophilic Stippling Slight, C-Reactive Protein 7.10H, Microcytosis Slight, Magnesium Level 1.8, EM-Ldg-F-Type Natriuretic Peptide 2980H 07/29/16 10:30: Vancomycin Level Trough 11.2 07/30/16 05:40: Absolute Band Neutrophils 1.0, Albumin 3.2L, Anion Gap 20.7H, Anisocytosis Moderate, Band Neutrophils % 6, Basophilic Stippling Slight, Basophils # (Auto) , Basophils # (Manual) 0.0, Basophils % (Manual) 0, Basophils (%) (Auto) , Blood Morphology Comment See reference, Blood Urea Nitrogen 67H, Calcium Level 12.3H, Carbon Dioxide Level 27, Chloride Level 108, Creatinine 2.39H, Differential Total Cells Counted 100, Eosinophils # 0.0, Eosinophils # (Auto) , Eosinophils % (Manual) 0, Eosinophils (%) (Auto) , Estimat Glomerular Filtration Rate 31.8, Estimated GFR (Non- 26.2, Glucose Level 113H, Hematocrit 31.80L, Hemoglobin 9.9L, Lymphocytes # 0.5, Lymphocytes # (Auto ) , Lymphocytes % (Manual) 3L, Lymphocytes (%) (Auto) , Magnesium Level 1.8, Mean Corpuscular Hemoglobin 26.4, Mean Corpuscular Hemoglobin Concent 31.1, Mean Corpuscular Volume 85, Mean Platelet Volume 8.6, Metamyelocytes % 0, Monocytes # 0.7, Monocytes # (Auto) , Monocytes % (Manual) 4, Monocytes (%) ( Auto) , Neutrophils # 15.5, Neutrophils # (Auto) , Neutrophils (%) (Auto) , Phosphorus Level 5.4H, Platelet Count 308, Poikilocytosis Slight, Potassium Level 3.8, Red Blood Count 3.75L, Red Cell Distribution Width 20.0H, Segmented Neutrophils % 87H, Sodium Level 152H, White Blood Count 17.84H MICRO 07/26 Blood culture Negative to date 07/21 Blood culture Negative to date IMAGING 07/30/16 CT HEAD: PENDING 07/28/16 LUMBAR SPINE - 2-3 VIEWS INDICATION: Back pain after fall. Two views were obtained. FINDINGS: There is grade 2 spondylolisthesis of L5 on S1. There is moderate degenerative disc disease at L4-5. The vertebral body heights are relatively well-maintained. There is marked lower lumbar hypertrophic degenerative facet disease. IMPRESSION: Severe degenerative changes in lower lumbar spine most of which appear chronic. In light of the osteopenia, possibility of an occult or early compression fracture cannot be entirely excluded. Recommend clinical correlation and if warranted followup with MRI. 07/26/16 CHEST PA/LAT (2 VIEW)* INDICATION: Respiratory distress. COMPARISON: and CT chest from 01/26/2016. FINDINGS: The left midlung zone pulmonary nodule is similar. No new airspace disease. No pleural effusion or pneumothorax. Stable left-sided pleural thickening. Stable right jugular central venous catheter. Stable mild cardiomegaly with a tortuous aorta. IMPRESSION: 1. Stable left midlung zone pulmonary nodule and left-sided pleural thickening. 2. No definite new airspace disease or pleural effusion. 3. A followup CT chest should be considered for assessment of stability of the left pulmonary nodule as it appears larger than on the chest x-ray from 2015. 07/21/16 CHEST 1 VIEW, AP/PA ONLY* INDICATION: Elevated white blood cell count. COMPARISON: 03/27/2016. FINDINGS: A left lung nodule measuring 2.8 cm is present and is likely increased in size when compared to CT from January 2016. Air trapping and COPD chronic. No effusion or pneumothorax. IMPRESSION: Increasing size of left upper lobe lung mass laterally measuring at least 2.7 cm today, on earlier CT it was about 1.6 cm. COPD. No other change. 07/21/16 CHEST 1 VIEW, AP/PA ONLY* INDICATION: Central line placement Portable chest 9:41 PM Right jugular central line tip projects over the right innominate vein. There is a 2 cm pulmonary nodule left mid lateral lung as well as some pleural thickening in the left lower lateral chest adjacent to this. The right lung is clear. There is no effusion or pneumothorax. There appears to be some emphysematous change in the lungs. IMPRESSION: Pleural thickening and pulmonary nodule left lung unchanged from previous day. REFERENCE 03/28/2016 ECHO: Summary: LA enlargement. Concentric LVH. INtact LV systolic function with EF 65%. Calcified aortic valve with mean gradient 16 mmHg, consistent with mild to moderate ; mild AI. Mitral annular calcification, trace mitral insufficiency. Trace tricuspid insufficiency. Pulmonary hypertension with PA systolic pressure 51 mmHg (mild to moderate.) No pericardial effusion. ASSESSMENT Addy Fragoso is a 80 year old male admitted from home 07/24 with SIRS and probable sepsis though source on admit was uncertain. He met criteria on admit with HR > 90 and leukocytosis. He had acute on chronic hypoxic respiratory failure as well. He has underlying lung cancer with a primary pulmonary nodule in the left lung that has grown since prior CT scan 03/2016. He had marked anemia on admit. He has numerous chronic medical problems. Prior to this admit he had been on home hospice service but he revoked this. He has had prolonged hospitalization due to persistent respiratory distress, persistent leukocytosis (without definitive source of infection) and generalized deconditioning. PLAN * SIRS, probable sepsis: Source of infection uncertain. Leukocytosis improved since admit but then remained persistently elevated. Blood cultures negative to date. CXR less consistent with pneumonia. Got ceftriaxone and azithromycin empirically on admit. Escalated antibiotics because of persistent leukocytosis. * Leukocytosis: WBC 38.29 on admit, initially improved but then stagnant . Infectious? Reactive to anemia? Initial blood culture negative. Repeat blood culture negative. Since WBC not improving, escalated antibiotic 07/26 to pip- tazo and vanco. He then started showing slow improvement with WBC 17.84 07/30 and CRP dropping from peak 16.30 to 7.10. * Delirium, Encephalopathy: Getting worse. Multifactorial. Added low-dose quetiapine 07/29. Has not head imaging so check CT head 07/30 (because of history of lung cancer). * Acute on Chronic Hypoxic Respiratory Failure: Oxygen protocol. IS. * Iron Deficiency Anemia: Hgb on admit 6.2. Stool positive for occult blood. Got 2 units on admit. Additional 2 units 07/24. Transfuse for Hgb < 8. Iron supplement. * COPD with Acute Exacerbation: Acute exacerbation resolving. No apparent pneumonia on CXR. Could be bronchitis. Duoneb scheduled. Albuterol PRN. * FRANCISCO: Creatinine was 4.17 on admit, improving gradually, 2.21 07/25. Worse with diuresis started on 07/28, so furosemide was stopped. Monitor trend. * Non-Small Cell Lung Cancer: On the basis of biopsy 02/15. Has declined further workup or treatment for this. Had been on hospice for two weeks prior to this admit, but he has since revoked that. Nodule growing in size compared to CT scan from March 2016. For now, observe. * Back Pain: L-spine plain film as noted. Hydrocodone/acetaminophen, hydromorphone, lidoderm. PT/OT deferred because of pain, irritability. * Falls at Home: PT/OT deferred because of pain, irritability. * Pressure Ulcers: Stage 1 left buttock, stage 2 right buttock, present on admit. Due to him sitting in chair for long periods of time at home. Pressure relieving strategies. Mepilex. * Pedal Edema: JOHN kebede. Started furosemide 07/28 but stopped due to hypernatremia, FRANCISCO. * Hypernatremia: Aggravated by diuresis. Stopped furosemide. If worsening, give D5W. * Constipation: Bowel regimen. Scheduled dosing until constipation improves. * Deconditioning: He does not want to participate with PT/OT so this has not been ordered. * F/E/N: Soft diet. Stopped IVF 07/24. Right IJ central line. * Prophylaxis: SCDs * Code Status: DNR * Dispo: Inpatient. Had been on hospice prior to this admit but took himself off. Have had conversation with daughter regarding code status, DPOA-HC. At present, patient has some periods of confusion but has some limited capacity. Overall prognosis poor. Family meeting at 1830 07/26 and he wants to continue therapy but elected DNR. Will not be able to return home and is agreeable to placement at [facility] when appropriate. Uncertain end-points for this hospitalization but he is not well enough for discharge and has not consented to comfort care. Working on edema, constipation, leukocytosis, back pain, delirium. Checking CT head. CHRONIC ISSUES * Gout: Off allopurinol. * Diabetes Mellitus Type II: A1C 5.8 on prior admit. Metformin on hold. Sliding scale. * HTN: Indapamide, losartan, metoprolol all on hold. * Prostate Cancer: S/P radiation. Observe. * Pulmonary Hypertension: Oxygen * GERD: pantoprazole ALEAH BARRIENTOS MD Jul 30, 2016 09:01
[2016-07-30] MEDS: MAGNESIUM HYDROXIDE 80MG/ML (MILK OF MAGNESIA) 30 ML UDC PO SCH ×4 (09:18→20:48)
[2016-07-30] MEDS: DOCUSATE SODIUM 100 MG (COLACE) CAP PO SCH ×2 (09:18→20:48)
[2016-07-30] MEDS: POLYETHYLENE GLYCOL 17 GM (MIRALAX) PACKET PO SCH (09:18)
[2016-07-30] MEDS: LIDOCAINE (LIDODERM) 5% PATCH TOP SCH (09:18)
[2016-07-30] MEDS: FERROUS SULFATE 325 MG (IRON) TABLET PO SCH ×2 (09:18→17:58)
[2016-07-30] MEDS: SODIUM CHLORIDE FLUSH 10 ML SYR IV SCH ×2 (09:54→18:18)
--- NOTE | 2016-07-30 10:25 | NUR ---
Patient to Ct via bed. Dilaudid 2mg IVP provided prior to transfer. Patient denies pain at this time.
--- NOTE | 2016-07-30 10:56 | Diagnostic Imaging Report ---
PROCEDURE: CT head without contrast. TECHNIQUE: Multiple contiguous axial images were obtained through the brain without the use of intravenous contrast. INDICATION: Altered mental state. FINDINGS: There is generalized cortical atrophy. Ventricles are slightly prominent consistent with atrophic state. There is no evidence of intracranial hemorrhage. No mass effect. No evidence of focal cortical edema. Basal cisterns are clear. Mastoid air cells and paranasal sinuses are clear. IMPRESSION: No acute intracranial abnormalities. Generalized atrophy. Dictated by: Dictated on workstation # [id number]
[2016-07-30] MEDS: PIPERACILLIN/TAZOBACTAM 3.375 GM in SODIUM CHLORIDE 100 ML IV SCH ×2 (11:12→20:35)
[2016-07-30 12:03] VITALS: BP 148/83
--- NOTE | 2016-07-30 12:20 | NUR ---
Pt found sleeping in bed comfortably, SPO2 97% on 2 l/min NC, HR 87, RR 14 and non labored. Pt wakes to my voice, but only opens eyes momentarily. BS clear before and after Duoneb via SVN. Unable to do IS at this time.
[2016-07-30 15:49] VITALS: BP 135/70
--- NOTE | 2016-07-30 17:54 | NUR ---
Family requested breathing Tx be postponed at this time. Pt is not on any distress at this time.
--- NOTE | 2016-07-30 18:38 | NUR ---
Patient refuses all meals throughout day. Sleeps in long intervals but does arouse easily to verbal stimuli. PRN [place] and Dilaudid provided frequently for continued complaints of lower back pain. Daughters here this evening. Dr. Arteaga updates both on plan of care and imaging results. Sleeping now without signs of distress. 2L of 02 intact. Will continue to monitor.
[2016-07-30 20:10] VITALS: BP 96/77
[2016-07-30] MEDS: PATCH REMOVAL TOP SCH (20:48)
[2016-07-30] MEDS: QUEtiapine 25 MG (SEROquel) TAB IMMEDIATE RELEASE PO SCH (20:49)
[2016-07-31] VITALS (7 sets, daily range): BP systolic 105–144; BP diastolic 44–87
[2016-07-31] MEDS: HYDROmorphone 1 MG/ML (DILAUDID) SYRINGE IV PRN ×6 (02:18→21:02)
[2016-07-31] MEDS: ALBUTEROL/IPRATROPIUM 3MG-0.5MG/3ML (DUONEB) NEB VIAL INH SCH ×4 (05:00→23:00)
[2016-07-31 06:26] LABS: MEAN CORPUSCULAR VOLUME 86 FL (80-100); MEAN PLATELET VOLUME 8.6 FL (6.0-9.5); PLATELET COUNT 274 10^3uL (150-450); WHITE BLOOD COUNT 19.29 10^3uL (4.0-11.0)
[2016-07-31 06:27] LABS: MEAN CORPUSCULAR HEMOGLOBIN 26.1 PG (26.0-34.0); MEAN CORPUSCULAR HGB CONC 30.2 g/dL (31.0-37.0)
--- NOTE | 2016-07-31 06:36 | NUR ---
Patient rests in bed throughout night, comfortable after administrations of dilaudid IV. Attempted to give drinks of water and pills, and patient coughs with these. Incontinent throughout night. Turned and changed during this shift. No needs at this time.
[2016-07-31 06:37] LABS: ALBUMIN 3.4 g/dL (3.4-5.0); ANION GAP 17.7 MEQ/L (3-15)
[2016-07-31 06:41] LABS: BAND NEUTROPHILS % 2 % (0-6); EOSINOPHILS % 1 % (0-4); LYMPHOCYTES # 0.8 #; MONOCYTES # 0.4 #; MONOCYTES % 2 % (3-11); RBC MORPH SEE REFERENCE (NORMAL); SEGMENTED NEUTROPHILS % 91 % (51-67); TOTAL CELLS COUNTED 100
[2016-07-31 06:42] LABS: ANISOCYTOSIS SLIGHT
[2016-07-31] MEDS: PANTOPRAZOLE 40 MG (PROTONIX) TAB PO SCH (06:43)
[2016-07-31] MEDS: INSULIN LISPRO 1 UNIT/0.01 ML (HUMALOG) DOSE SC SCH ×4 (07:30→21:00)
[2016-07-31] MEDS: POLYETHYLENE GLYCOL 17 GM (MIRALAX) PACKET PO SCH (09:18)
[2016-07-31] MEDS: LIDOCAINE (LIDODERM) 5% PATCH TOP SCH (09:19)
[2016-07-31] MEDS: FERROUS SULFATE 325 MG (IRON) TABLET PO SCH ×2 (09:21→17:21)
[2016-07-31] MEDS: DOCUSATE SODIUM 100 MG (COLACE) CAP PO SCH ×2 (09:21→21:01)
[2016-07-31] MEDS: PIPERACILLIN/TAZOBACTAM 3.375 GM in SODIUM CHLORIDE 100 ML IV SCH ×2 (09:21→21:02)
[2016-07-31] MEDS: VANCOMYCIN 750 MG in NORMAL SALINE 150 ML IV SCH (09:57)
[2016-07-31] MEDS: MAGNESIUM HYDROXIDE 80MG/ML (MILK OF MAGNESIA) 30 ML UDC PO SCH ×4 (09:57→21:01)
[2016-07-31] MEDS: VANCOMYCIN COMPOUNDED BY PHARMACY IV SCH (10:00)
--- NOTE | 2016-07-31 10:00 | NUR ---
22 gauge IV started in Left FA on 2nd attempt.
--- NOTE | 2016-07-31 11:08 | Progress Note (E) ---
Progress Note S: Awake states "I feel lousy" skin red on cheeks and forehed but denies any complaints other than he feels lousy. CT head was negative. O: I & O Past 24 hrs 07/31/16 07:00 Intake Total 100 ml Balance 100 ml Intake Oral 100 ml vitals: Vital Signs Date Time Temp Pulse Resp B/P Pulse Ox O2 Delivery O2 Flow Rate FiO2 07/31/16 08:38 96.4 16 16 135/71 95 Nasal cannula 07/31/16 04:07 2.00 GEN: Awake and alert- up to the chair, feels lousy this am, ate breakfast, HEENT: EOMI, clear sclerae, very dry oral tongue.. CV: irregular, S1 S2 audible without significant murmur. PULM: Diminished bases. Some audible wheezing, left anterior lung field. ABD: Soft, diffusely and mildly tender to palpation. Active bowel sounds. EXTR: Pulses intact in DP bilaterally. Radial pulses intact. Trace BLE edema. ( Improved after getting furosemide.) INTEG: Pallor. Age related changes. Stage 2 pressure ulcer right buttock. Stage 1 pressure ulcer left buttock. Both present on admit. NEURO: Psychomotor slowing. Generalized, but no focal weakness. Weight: 76.6 kg (69.3 kg on admit) Lab-Past 14 Days, 35 Results 07/21/16 19:02: Absolute Band Neutrophils 4.6, Anion Gap 28.1H, Anisocytosis Slight, BUN/ Creatinine Ratio 47H, Band Neutrophils % 12H, Basophils # (Auto) , Basophils # ( Manual) 0.0, Basophils % (Manual) 0, Basophils (%) (Auto) , Blood Morphology Comment See reference, Blood Urea Nitrogen 210#H, Calcium Level 9.9, Carbon Dioxide Level 19L, Chloride Level 94L, Creatinine 4.43#*H, Differential Total Cells Counted 100, Eosinophils # 0.0, Eosinophils # (Auto) , Eosinophils % ( Manual) 0, Eosinophils (%) (Auto) , Estimat Glomerular Filtration Rate 15.6, Estimated GFR (Non- 12.9, Glucose Level 133H, Hematocrit 19.50#* L, Hemoglobin 6.2#*L, Lymphocytes # 1.2, Lymphocytes # (Auto) , Lymphocytes % ( Manual) 3L, Lymphocytes (%) (Auto) , Mean Corpuscular Hemoglobin 24.4L, Mean Corpuscular Hemoglobin Concent 31.8, Mean Corpuscular Volume 77L, Mean Platelet Volume 9.1, Metamyelocytes % 3H, Microcytosis Slight, Monocytes # 0.8, Monocytes # (Auto) , Monocytes % (Manual) 2L, Monocytes (%) (Auto) , Neutrophils # 30.6, Neutrophils # (Auto) , Neutrophils (%) (Auto) , Platelet Count 679#H, Polychromasia Slight, Potassium Level 3.4L, Red Blood Count 2.54L, Red Cell Distribution Width 18.9H, Schistocytes Slight, Segmented Neutrophils % 80H, Sodium Level 137, White Blood Count 38.29*H 07/21/16 21:00: C-Reactive Protein 3.10H, Lactic Acid Level 2.5H, HD-Tom-S-Type Natriuretic Peptide 763H 07/22/16 00:15: Urine Bacteria None seen, Urine Bilirubin Negative, Urine Blood Negative, Urine Clarity Clear, Urine Collection Type Clean catch, Urine Color Yellow, Urine Glucose (UA) Negative, Urine Hyaline Casts Rare, Urine Ketones Negative, Urine Leukocyte Esterase Negative, Urine Microscopic RBC 0-2, Urine Nitrite Negative, Urine Protein TraceH, Urine Renal Epithelial Cells 0-2, Urine Specific [place] 1.010, Urine Squamous Epithelial Cells 10-20, Urine Urobilinogen 0.2, Urine WBC 2-5, Urine pH 5.5, Volume Urine Centrifuged 12 ml 07/22/16 05:10: Absolute Band Neutrophils 0.8, Anion Gap 22.5H, Anisocytosis Marked, BUN/ Creatinine Ratio 45H, Band Neutrophils % 3, Basophils # (Auto) , Basophils (%) ( Auto) , Blood Morphology Comment See reference, Blood Urea Nitrogen 187H, Calcium Level 9.2, Carbon Dioxide Level 21L, Chloride Level 98, Creatinine 4.17* H, Differential Total Cells Counted 100, Eosinophils # (Auto) , Eosinophils (%) (Auto) , Estimat Glomerular Filtration Rate 16.7, Estimated GFR (Non- 13.8, Glucose Level 112H, Hematocrit 23.80L, Hemoglobin 7.8L, Lymphocytes # 1.4, Lymphocytes # (Auto) , Lymphocytes % (Manual) 5L, Lymphocytes (%) (Auto) , Mean Corpuscular Hemoglobin 25.4L, Mean Corpuscular Hemoglobin Concent 32.8, Mean Corpuscular Volume 78L, Mean Platelet Volume 8.8, Microcytosis Moderate, Monocytes # 2.2, Monocytes # (Auto) , Monocytes % (Manual ) 8, Monocytes (%) (Auto) , Neutrophils # 23.6, Neutrophils # (Auto) , Neutrophils (%) (Auto) , Platelet Count 543H, Polychromasia Slight, Potassium Level 2.9L, Red Blood Count 3.07L, Red Cell Distribution Width 19.1H, Segmented Neutrophils % 83H, Sodium Level 139, White Blood Count 28.47H, Acanthocytes Slight, Basophilic Stippling Moderate, Hypochromasia Slight, Myelocytes 1, Poikilocytosis Moderate, Smear Scan 07/22/16 12:20: Gastric Fluid Occult Blood PositiveH 07/23/16 08:15: Absolute Band Neutrophils 0.2, Anion Gap 16.5H, Anisocytosis Slight, BUN/ Creatinine Ratio 41H, Band Neutrophils % 1, Basophils # (Auto) , Basophils # ( Manual) 0.0, Basophils % (Manual) 0, Basophils (%) (Auto) , Blood Morphology Comment See reference, Blood Urea Nitrogen 148H, Calcium Level 9.7, Carbon Dioxide Level 25, Chloride Level 107, Creatinine 3.57H, Differential Total Cells Counted 100, Eosinophils # 0.0, Eosinophils # (Auto) , Eosinophils % ( Manual) 0, Eosinophils (%) (Auto) , Estimat Glomerular Filtration Rate 20.0, Estimated GFR (Non- 16.5, Glucose Level 123H, Hematocrit 22.70L , Hemoglobin 7.5L, Lymphocytes # 0.6, Lymphocytes # (Auto) , Lymphocytes % ( Manual) 3L, Lymphocytes (%) (Auto) , Mean Corpuscular Hemoglobin 25.9L, Mean Corpuscular Hemoglobin Concent 33.0, Mean Corpuscular Volume 78L, Mean Platelet Volume 8.4, Metamyelocytes % 2H, Microcytosis Slight, Monocytes # 1.6, Monocytes # (Auto) , Monocytes % (Manual) 8, Monocytes (%) (Auto) , Neutrophils # 18.0, Neutrophils # (Auto) , Neutrophils (%) (Auto) , Platelet Count 489H, Polychromasia Slight, Potassium Level 2.9L, Red Blood Count 2.90L, Red Cell Distribution Width 19.4H, Segmented Neutrophils % 86H, Sodium Level 146#, White Blood Count 20.93H 07/24/16 05:40: Absolute Band Neutrophils 0.4, Anion Gap 13.1, Anisocytosis Moderate, BUN/ Creatinine Ratio 40H, Band Neutrophils % 2, Basophils # (Auto) , Basophils # ( Manual) 0.0, Basophils % (Manual) 0, Basophils (%) (Auto) , Blood Morphology Comment See reference, Blood Urea Nitrogen 111H, Calcium Level 10.0, Carbon Dioxide Level 25, Chloride Level 110H, Creatinine 2.80H, Differential Total Cells Counted 100, Eosinophils # 0.0, Eosinophils # (Auto) , Eosinophils % ( Manual) 0, Eosinophils (%) (Auto) , Estimat Glomerular Filtration Rate 26.5, Estimated GFR (Non- 21.9, Glucose Level 129H, Hematocrit 21.70L , Hemoglobin 6.9*L, Lymphocytes # 0.4, Lymphocytes # (Auto) , Lymphocytes % ( Manual) 2L, Lymphocytes (%) (Auto) , Mean Corpuscular Hemoglobin 25.5L, Mean Corpuscular Hemoglobin Concent 31.8, Mean Corpuscular Volume 80, Mean Platelet Volume 8.1, Monocytes # 2.0, Monocytes # (Auto) , Monocytes % (Manual) 9, Monocytes (%) (Auto) , Neutrophils # 19.2, Neutrophils # (Auto) , Neutrophils (% ) (Auto) , Platelet Count 448, Potassium Level 3.7#, Red Blood Count 2.70L, Red Cell Distribution Width 19.7H, Segmented Neutrophils % 87H, Sodium Level 144, White Blood Count 22.07H 07/25/16 05:35: Absolute Band Neutrophils 0.0, Anion Gap 17.6H, Anisocytosis Slight, Band Neutrophils % 0, Basophils # (Auto) , Basophils # (Manual) 0.0, Basophils % ( Manual) 0, Basophils (%) (Auto) , Blood Morphology Comment See reference, Blood Urea Nitrogen 88H, Calcium Level 10.9H, Carbon Dioxide Level 24, Chloride Level 110H, Creatinine 2.21H, Differential Total Cells Counted 100, Eosinophils # 0.0 , Eosinophils # (Auto) , Eosinophils % (Manual) 0, Eosinophils (%) (Auto) , Estimat Glomerular Filtration Rate 34.8, Estimated GFR (Non- 28.7, Glucose Level 136H, Hematocrit 30.10L, Hemoglobin 9.7L, Lymphocytes # 0.7 , Lymphocytes # (Auto) , Lymphocytes % (Manual) 3L, Lymphocytes (%) (Auto) , Mean Corpuscular Hemoglobin 26.5, Mean Corpuscular Hemoglobin Concent 32.2, Mean Corpuscular Volume 82, Mean Platelet Volume 8.9, Metamyelocytes % 1, Monocytes # 3.1, Monocytes # (Auto) , Monocytes % (Manual) 14H, Monocytes (%) ( Auto) , Neutrophils # 18.8, Neutrophils # (Auto) , Neutrophils (%) (Auto) , Platelet Count 427, Potassium Level 3.9, Red Blood Count 3.66L, Red Cell Distribution Width 19.0H, Segmented Neutrophils % 82H, Sodium Level 148, White Blood Count 22.91H, Albumin 3.1#L, C-Reactive Protein 16.30H, Magnesium Level 2.0, Phosphorus Level 4.7#, Poikilocytosis Slight 07/26/16 05:30: Absolute Band Neutrophils 0.4, Albumin 3.4, Anion Gap 19.1H, Anisocytosis Slight , Band Neutrophils % 2, Basophils # (Auto) , Basophils # (Manual) 0.0, Basophils % (Manual) 0, Basophils (%) (Auto) , Blood Morphology Comment See reference, Blood Urea Nitrogen 77H, Calcium Level 11.3H, Carbon Dioxide Level 22 , Chloride Level 109H, Creatinine 2.11H, Differential Total Cells Counted 100, Eosinophils # 0.0, Eosinophils # (Auto) , Eosinophils % (Manual) 0, Eosinophils (%) (Auto) , Estimat Glomerular Filtration Rate 36.7, Estimated GFR (Non- 30.3, Glucose Level 123H, Hematocrit 31.30L, Hemoglobin 9.9L, Lymphocytes # 1.3, Lymphocytes # (Auto) , Lymphocytes % (Manual) 6L, Lymphocytes (%) (Auto) , Mean Corpuscular Hemoglobin 26.0, Mean Corpuscular Hemoglobin Concent 31.6, Mean Corpuscular Volume 82, Mean Platelet Volume 9.0, Metamyelocytes % 0, Monocytes # 2.1, Monocytes # (Auto) , Monocytes % (Manual) 10, Monocytes (%) (Auto) , Neutrophils # 18.0, Neutrophils # (Auto) , Neutrophils (%) (Auto) , Phosphorus Level 4.5, Platelet Count 462H, Poikilocytosis Slight, Potassium Level 3.9, Red Blood Count 3.81L, Red Cell Distribution Width 19.6H, Segmented Neutrophils % 82H, Sodium Level 147, White Blood Count 21.95H 07/27/16 06:10: Albumin 3.5, Anion Gap 19.3H, Anisocytosis Moderate, Basophils # (Auto) , Basophils (%) (Auto) , Blood Morphology Comment See reference, Blood Urea Nitrogen 78H, Calcium Level 11.6H, Carbon Dioxide Level 24, Chloride Level 109H , Creatinine 2.15H, Differential Total Cells Counted 100, Eosinophils # (Auto) , Eosinophils (%) (Auto) , Estimat Glomerular Filtration Rate 35.9, Estimated GFR (Non- 29.7, Glucose Level 112H, Hematocrit 32.00L, Hemoglobin 10.2L, Lymphocytes # 0.5, Lymphocytes # (Auto) , Lymphocytes % ( Manual) 2L, Lymphocytes (%) (Auto) , Mean Corpuscular Hemoglobin 26.5, Mean Corpuscular Hemoglobin Concent 31.9, Mean Corpuscular Volume 83, Mean Platelet Volume 8.7, Monocytes # 1.1, Monocytes # (Auto) , Monocytes % (Manual) 5, Monocytes (%) (Auto) , Neutrophils # 20.8, Neutrophils # (Auto) , Neutrophils (% ) (Auto) , Phosphorus Level 5.4H, Platelet Count 482H, Poikilocytosis Slight, Potassium Level 4.1, Red Blood Count 3.85L, Red Cell Distribution Width 19.5H, Segmented Neutrophils % 93H, Sodium Level 148, White Blood Count 22.36H, Basophilic Stippling Slight, C-Reactive Protein 12.80H, Hypochromasia Slight, Microcytosis Slight 07/29/16 05:25: Absolute Band Neutrophils 0.2, Albumin 3.3L, Anion Gap 18.2H, Anisocytosis Moderate, Band Neutrophils % 1, Basophils # (Auto) , Basophils # (Manual) 0.0, Basophils % (Manual) 0, Basophils (%) (Auto) , Blood Morphology Comment See reference, Blood Urea Nitrogen 63H, Calcium Level 12.1H, Carbon Dioxide Level 26 , Chloride Level 110H, Creatinine 2.18H, Differential Total Cells Counted 100, Eosinophils # 0.0, Eosinophils # (Auto) , Eosinophils % (Manual) 0, Eosinophils (%) (Auto) , Estimat Glomerular Filtration Rate 35.3, Estimated GFR (Non- 29.2, Glucose Level 112H, Hematocrit 31.50L, Hemoglobin 9.7L, Lymphocytes # 1.2, Lymphocytes # (Auto) , Lymphocytes % (Manual) 6L, Lymphocytes (%) (Auto) , Mean Corpuscular Hemoglobin 26.1, Mean Corpuscular Hemoglobin Concent 30.8L, Mean Corpuscular Volume 85, Mean Platelet Volume 8.6, Metamyelocytes % 0, Monocytes # 1.7, Monocytes # (Auto) , Monocytes % (Manual) 9 , Monocytes (%) (Auto) , Neutrophils # 16.3, Neutrophils # (Auto) , Neutrophils (%) (Auto) , Phosphorus Level 5.7H, Platelet Count 394, Poikilocytosis Slight, Potassium Level 4.0, Red Blood Count 3.71L, Red Cell Distribution Width 20.1H, Segmented Neutrophils % 84H, Sodium Level 151H, White Blood Count 19.37H, Basophilic Stippling Slight, C-Reactive Protein 7.10H, Microcytosis Slight, Magnesium Level 1.8, VR-Cyf-Z-Type Natriuretic Peptide 2980H 07/29/16 10:30: Vancomycin Level Trough 11.2 07/30/16 05:40: Absolute Band Neutrophils 1.0, Albumin 3.2L, Anion Gap 20.7H, Anisocytosis Moderate, Band Neutrophils % 6, Basophilic Stippling Slight, Basophils # (Auto) , Basophils # (Manual) 0.0, Basophils % (Manual) 0, Basophils (%) (Auto) , Blood Morphology Comment See reference, Blood Urea Nitrogen 67H, Calcium Level 12.3H, Carbon Dioxide Level 27, Chloride Level 108, Creatinine 2.39H, Differential Total Cells Counted 100, Eosinophils # 0.0, Eosinophils # (Auto) , Eosinophils % (Manual) 0, Eosinophils (%) (Auto) , Estimat Glomerular Filtration Rate 31.8, Estimated GFR (Non- 26.2, Glucose Level 113H, Hematocrit 31.80L, Hemoglobin 9.9L, Lymphocytes # 0.5, Lymphocytes # (Auto ) , Lymphocytes % (Manual) 3L, Lymphocytes (%) (Auto) , Magnesium Level 1.8, Mean Corpuscular Hemoglobin 26.4, Mean Corpuscular Hemoglobin Concent 31.1, Mean Corpuscular Volume 85, Mean Platelet Volume 8.6, Metamyelocytes % 0, Monocytes # 0.7, Monocytes # (Auto) , Monocytes % (Manual) 4, Monocytes (%) ( Auto) , Neutrophils # 15.5, Neutrophils # (Auto) , Neutrophils (%) (Auto) , Phosphorus Level 5.4H, Platelet Count 308, Poikilocytosis Slight, Potassium Level 3.8, Red Blood Count 3.75L, Red Cell Distribution Width 20.0H, Segmented Neutrophils % 87H, Sodium Level 152H, White Blood Count 17.84H MICRO 07/26 Blood culture Negative to date 07/21 Blood culture Negative to date IMAGING 07/30/16 CT HEAD: PENDING 07/28/16 LUMBAR SPINE - 2-3 VIEWS INDICATION: Back pain after fall. Two views were obtained. FINDINGS: There is grade 2 spondylolisthesis of L5 on S1. There is moderate degenerative disc disease at L4-5. The vertebral body heights are relatively well-maintained. There is marked lower lumbar hypertrophic degenerative facet disease. IMPRESSION: Severe degenerative changes in lower lumbar spine most of which appear chronic. In light of the osteopenia, possibility of an occult or early compression fracture cannot be entirely excluded. Recommend clinical correlation and if warranted followup with MRI. 07/26/16 CHEST PA/LAT (2 VIEW)* INDICATION: Respiratory distress. COMPARISON: and CT chest from 01/26/2016. FINDINGS: The left midlung zone pulmonary nodule is similar. No new airspace disease. No pleural effusion or pneumothorax. Stable left-sided pleural thickening. Stable right jugular central venous catheter. Stable mild cardiomegaly with a tortuous aorta. IMPRESSION: 1. Stable left midlung zone pulmonary nodule and left-sided pleural thickening. 2. No definite new airspace disease or pleural effusion. 3. A followup CT chest should be considered for assessment of stability of the left pulmonary nodule as it appears larger than on the chest x-ray from 2015. 07/21/16 CHEST 1 VIEW, AP/PA ONLY* INDICATION: Elevated white blood cell count. COMPARISON: 03/27/2016. FINDINGS: A left lung nodule measuring 2.8 cm is present and is likely increased in size when compared to CT from January 2016. Air trapping and COPD chronic. No effusion or pneumothorax. IMPRESSION: Increasing size of left upper lobe lung mass laterally measuring at least 2.7 cm today, on earlier CT it was about 1.6 cm. COPD. No other change. 07/21/16 CHEST 1 VIEW, AP/PA ONLY* INDICATION: Central line placement Portable chest 9:41 PM Right jugular central line tip projects over the right innominate vein. There is a 2 cm pulmonary nodule left mid lateral lung as well as some pleural thickening in the left lower lateral chest adjacent to this. The right lung is clear. There is no effusion or pneumothorax. There appears to be some emphysematous change in the lungs. IMPRESSION: Pleural thickening and pulmonary nodule left lung unchanged from previous day. REFERENCE 03/28/2016 ECHO: Summary: LA enlargement. Concentric LVH. INtact LV systolic function with EF 65%. Calcified aortic valve with mean gradient 16 mmHg, consistent with mild to moderate ; mild AI. Mitral annular calcification, trace mitral insufficiency. Trace tricuspid insufficiency. Pulmonary hypertension with PA systolic pressure 51 mmHg (mild to moderate.) No pericardial effusion. ASSESSMENT Addy Fragoso is a 80 year old male admitted from home 07/24 with SIRS and probable sepsis though source on admit was uncertain. He met criteria on admit with HR > 90 and leukocytosis. He had acute on chronic hypoxic respiratory failure as well. He has underlying lung cancer with a primary pulmonary nodule in the left lung that has grown since prior CT scan 03/2016. He had marked anemia on admit. He has numerous chronic medical problems. Prior to this admit he had been on home hospice service but he revoked this. He has had prolonged hospitalization due to persistent respiratory distress, persistent leukocytosis (without definitive source of infection) and generalized deconditioning. PLAN * SIRS, probable sepsis: Source of infection uncertain. Leukocytosis improved since admit but then remained persistently elevated. Blood cultures negative to date. CXR less consistent with pneumonia. Got ceftriaxone and azithromycin empirically on admit. Escalated antibiotics because of persistent leukocytosis. * Leukocytosis: WBC 38.29 on admit, initially improved but then stagnant . Infectious? Reactive to anemia? Initial blood culture negative. Repeat blood culture negative. Since WBC not improving, escalated antibiotic 07/26 to pip- tazo and vanco. He then started showing slow improvement with WBC 17.84 07/30 and CRP dropping from peak 16.30 to 7.10. * Delirium, Encephalopathy: Getting worse. Multifactorial. Added low-dose quetiapine 07/29. Has not head imaging so check CT head 07/30 (because of history of lung cancer). * Acute on Chronic Hypoxic Respiratory Failure: Oxygen protocol. IS. * Iron Deficiency Anemia: Hgb on admit 6.2. Stool positive for occult blood. Got 2 units on admit. Additional 2 units 07/24. Transfuse for Hgb < 8. Iron supplement. * COPD with Acute Exacerbation: Acute exacerbation resolving. No apparent pneumonia on CXR. Could be bronchitis. Duoneb scheduled. Albuterol PRN. * FRANCISCO: Creatinine was 4.17 on admit, improving gradually, 2.21 07/25. Worse with diuresis started on 07/28, so furosemide was stopped. Monitor trend. * Non-Small Cell Lung Cancer: On the basis of biopsy 02/15. Has declined further workup or treatment for this. Had been on hospice for two weeks prior to this admit, but he has since revoked that. Nodule growing in size compared to CT scan from March 2016. For now, observe. * Back Pain: L-spine plain film as noted. Hydrocodone/acetaminophen, hydromorphone, lidoderm. PT/OT deferred because of pain, irritability. * Falls at Home: PT/OT deferred because of pain, irritability. * Pressure Ulcers: Stage 1 left buttock, stage 2 right buttock, present on admit. Due to him sitting in chair for long periods of time at home. Pressure relieving strategies. Mepilex. * Pedal Edema: JOHN kebede. Started furosemide 07/28 but stopped due to hypernatremia, FRANCISCO. * Hypernatremia: Aggravated by diuresis. Stopped furosemide. If worsening, give D5W. * Constipation: Bowel regimen. Scheduled dosing until constipation improves. * Deconditioning: He does not want to participate with PT/OT so this has not been ordered. * F/E/N: Soft diet. Stopped IVF 07/24. Right IJ central line. * Prophylaxis: SCDs * Code Status: DNR * Dispo: Inpatient. Had been on hospice prior to this admit but took himself off. Have had conversation with daughter regarding code status, DPOA-HC. At present, patient has some periods of confusion but has some limited capacity. Overall prognosis poor. Family meeting at 1830 07/26 and he wants to continue therapy but elected DNR. Will not be able to return home and is agreeable to placement at [facility] when appropriate. Uncertain end-points for this hospitalization but he is not well enough for discharge and has not consented to comfort care. Discussion again last night with Dr. Arteaga and no decision made yet about his plans. CHRONIC ISSUES * Gout: Off allopurinol. * Diabetes Mellitus Type II: A1C 5.8 on prior admit. Metformin on hold. Sliding scale. * HTN: Indapamide, losartan, metoprolol all on hold. * Prostate Cancer: S/P radiation. Observe. * Pulmonary Hypertension: Oxygen * GERD: pantoprazole Pt seen and examined with [employer], agree with above. Will check lab in am and if things are stable, he is agreeable to go to [facility]. Likely not a good candidate for skilled, would likely just need permanent placement there. Kusum Pate APRN July 31, 2016 11:08 Rodrigo Nelson MD July 31, 2016 21:10
--- NOTE | 2016-07-31 14:05 | NUR ---
Duoneb declined by Pt. Pt is on 2 l/min NC.
[2016-07-31] MEDS: HYDROcodone/APAP 7.5 MG/325 MG (NORCO) TABLET PO PRN ×2 (17:24→21:01)
--- NOTE | 2016-07-31 18:37 | NUR ---
Alexandre is up to the chair and back to two occasions this shift. Transfers are done with gait belt and 2 assist as Alexandre is able to bear weight. The patient struggles with comfort and pain and is able to communicate pain to this RN. He takes bites for meals and rests with eyes closed frequently. VSS and WNL on 2LNC. Dilaudid IV [id number] for pain. Currently daughter is at the bedside assisting with cares.
--- NOTE | 2016-07-31 19:06 | NUR ---
REport given to Rafaela STEVENS and care relinquished.
--- NOTE | 2016-07-31 19:41 | NUR ---
Care of pt assumed, pt sitting in recliner at bedside, daughter present. Alert & awake at this time, shakes head no when asked if having pain or dyspnea. Call light in reach. Will round frequently for cares.
--- NOTE | 2016-07-31 20:04 | NUR ---
Pt continues to refuse respiratory interventions. 2 l/min NC in place.
[2016-07-31] MEDS: QUEtiapine 25 MG (SEROquel) TAB IMMEDIATE RELEASE PO SCH (21:01)
[2016-07-31] MEDS: SODIUM CHLORIDE FLUSH 10 ML SYR IV SCH (21:02)
[2016-07-31] MEDS: PATCH REMOVAL TOP SCH (21:03)
[2016-08-01] MEDS: HYDROcodone/APAP 7.5 MG/325 MG (NORCO) TABLET PO PRN ×2 (01:05→05:58)
[2016-08-01] MEDS: HYDROmorphone 1 MG/ML (DILAUDID) SYRINGE IV PRN ×3 (01:05→08:22)
--- NOTE | 2016-08-01 01:07 | NUR ---
Pt found to have removed gown and oxygen, restless in bed, reapplied oxygen, stating "hurry hurry". Pt states having pain in back. Repositioned for comfort, kelsie care done, will give PRN meds per ordered. See eMAR. Right earlobe noted to be discolored.
--- NOTE | 2016-08-01 03:33 | NUR ---
Repositioned pt, left foot noted to have increased mottling, all toes and 1/2 way up foot is purple at this time.
[2016-08-01 03:46] VITALS: BP 147/85
[2016-08-01] MEDS: SODIUM CHLORIDE FLUSH 10 ML SYR IV SCH ×2 (04:27→08:06)
[2016-08-01] MEDS: ALBUTEROL/IPRATROPIUM 3MG-0.5MG/3ML (DUONEB) NEB VIAL INH SCH (05:00)
[2016-08-01] MEDS: PANTOPRAZOLE 40 MG (PROTONIX) TAB PO SCH (05:58)
[2016-08-01 06:05] LABS: MEAN CORPUSCULAR VOLUME 87 FL (80-100); MEAN PLATELET VOLUME 8.5 FL (6.0-9.5); PLATELET COUNT 244 10^3uL (150-450); WHITE BLOOD COUNT 16.21 10^3uL (4.0-11.0)
[2016-08-01] MEDS: INSULIN LISPRO 1 UNIT/0.01 ML (HUMALOG) DOSE SC SCH ×4 (06:16→20:52)
[2016-08-01 06:20] LABS: MEAN CORPUSCULAR HEMOGLOBIN 26.1 PG (26.0-34.0); MEAN CORPUSCULAR HGB CONC 30.1 g/dL (31.0-37.0)
[2016-08-01 06:21] LABS: ANISOCYTOSIS SLIGHT; BAND NEUTROPHILS % 0 % (0-6); EOSINOPHILS % 0 % (0-4); LYMPHOCYTES # 0.8 #; MONOCYTES # 0.5 #; MONOCYTES % 3 % (3-11); RBC MORPH SEE REFERENCE (NORMAL); SEGMENTED NEUTROPHILS % 92 % (51-67); TOTAL CELLS COUNTED 100
[2016-08-01 06:27] LABS: ANION GAP 17.5 MEQ/L (3-15)
--- NOTE | 2016-08-01 06:40 | NUR ---
Pt has continued to be restless throughout night, is resting quietly at present. Abdomen continues to be round and distended, no BM this shift.
[2016-08-01 07:30] VITALS: BP 138/56
[2016-08-01] MEDS: POLYETHYLENE GLYCOL 17 GM (MIRALAX) PACKET PO SCH (08:05)
[2016-08-01] MEDS: MAGNESIUM HYDROXIDE 80MG/ML (MILK OF MAGNESIA) 30 ML UDC PO SCH ×4 (08:05→20:35)
[2016-08-01] MEDS: DOCUSATE SODIUM 100 MG (COLACE) CAP PO SCH ×2 (08:05→20:35)
[2016-08-01] MEDS: PIPERACILLIN/TAZOBACTAM 3.375 GM in SODIUM CHLORIDE 100 ML IV SCH ×2 (08:05→20:05)
[2016-08-01] MEDS: FERROUS SULFATE 325 MG (IRON) TABLET PO SCH ×2 (08:05→17:20)
[2016-08-01] MEDS: LIDOCAINE (LIDODERM) 5% PATCH TOP SCH (08:06)
--- NOTE | 2016-08-01 08:55 | NUR ---
Nutrition Follow Up: Patient's intake remains very poor, 0-25% with average intake <10% of soft diet. He took bites of breakfast this morning. Medical problems currently include edema, constipation, leukocytosis, back pain with possible compression fx, and delirium. Noted pt. had episode of coughing with water and pills yesterday--this is a new problem. There is no documented BM since 07-22. Weight today: 160.6#/73 kg--this is up 8.2# in the past 8 days Labs: sodium 157, BUN 79, creatinine 2.24, glucose 120, calcium 12.8 1. Patient remains at high nutritional risk due to inability to take adequate p.o. nutrition. He has been sleeping most of the day and will respond for short intervals. At this time, pt. has not consented to comfort care, and plans are being made for transfer to [facility]. 2. Patients ability to swallow safely has come into question; consider speech consult. In the meantime, will continue to send small portions of soft diet and include Glucerna TID with meals in the hopes that sipping liquids (of which Glucerna is naturally nectar-thick if he's having difficulty swallowing) will increase his p.o. intake. 3. Will follow closely with physician re: plan of care.
--- NOTE | 2016-08-01 09:42 | NUR ---
Alexandre is up in bed this AM with IV abx infusing. Skin is mottled on LE and respirations are deep. Alexandre is able to take pills whole and communicates about pain. Pain is controlled with Dilaudid IV [id number].
[2016-08-01] MEDS: VANCOMYCIN COMPOUNDED BY PHARMACY IV SCH (10:00)
[2016-08-01 11:21] VITALS: BP 133/63
[2016-08-01] MEDS: VANCOMYCIN 750 MG in NORMAL SALINE 150 ML IV SCH (11:30)
--- NOTE | 2016-08-01 12:45 | NUR ---
patient is down with xray at this time
--- NOTE | 2016-08-01 13:40 | Diagnostic Imaging Report ---
INDICATION: Abdominal pain with constipation. COMPARISON: Comparison with previous chest x-ray of 07/26/2016. FINDINGS: Left midlung pulmonary nodule is again noted, unchanged. The lungs are well aerated. No infiltrate. The heart is not enlarged. There is no free air under the diaphragm. The abdominal film shows diffuse motion artifact, markedly limiting detail. There is probable mild small bowel distention with gas-filled loops of bowel. There is some gas and stool within the colon to the rectum. There does not appear to be large volume of stool in the rectum though detail quite limited. IMPRESSION: 1. Very limited study due to motion artifact. 2. Findings suggesting mild ileus. No obvious constipation demonstrated. 3. Left lung nodule again noted, unchanged. Dictated by: Dictated on workstation # [id number]
[2016-08-01] MEDS ORDERED: ALBUTEROL/IPRATROPIUM 3MG-0.5MG/3ML (DUONEB) NEB VIAL INH PRN (13:55)
--- NOTE | 2016-08-01 15:30 | NUR ---
Enema given at this time
[2016-08-01 16:15] VITALS: BP 143/79
--- NOTE | 2016-08-01 16:30 | NUR ---
2nd saline enema given at this time. Patient responds with small liquid BM.
[2016-08-01] MEDS ORDERED: POLYETHYLENE GLYCOL 17 GM (MIRALAX) PACKET PO ONE (16:55)
--- NOTE | 2016-08-01 19:00 | NUR ---
Pt pulled IV out, Roni RN tried to put in new IV, but pt would not allow him to try more than once. This RN will try again later.
--- NOTE | 2016-08-01 19:06 | NUR ---
Pt requested PRN Duoneb, SPO2 77 on 2 l/min NC increased to 4 l/min. SPO2 recovered to 92 within two minutes. BS diminished with fine rhonchi before and after Duoneb via SVN/MASK.
--- NOTE | 2016-08-01 19:23 | NUR ---
Report given to Lorna SETVENS and care relinquished
[2016-08-01 19:56] VITALS: BP 152/62
--- NOTE | 2016-08-01 20:00 | NUR ---
Pt has refused x2 to allow this RN to try and attempt to place an IV. Explained it was how he would receive his antibiotics and IV pain medication. Continues to refuse. Notified Pat fish hatchery supervisor and she spoke with pt and he continues to refuse IV for her as well. Notified Dr. Oleary who is on floor at this time, she spoke with pt and he refused for her as well. Will continue to monitor.
[2016-08-01] MEDS: QUEtiapine 25 MG (SEROquel) TAB IMMEDIATE RELEASE PO SCH (20:35)
[2016-08-01] MEDS: PATCH REMOVAL TOP SCH (21:00)
[2016-08-02 00:04] VITALS: BP 116/51
[2016-08-02 03:54] VITALS: BP 119/78
--- NOTE | 2016-08-02 04:19 | NUR ---
Pt has been restless and awake most of the night, continues to refuses to allow this RN to attempt to put in IV. Will continue to monitor.
[2016-08-02] MEDS: PANTOPRAZOLE 40 MG (PROTONIX) TAB PO SCH (05:38)
[2016-08-02] MEDS: INSULIN LISPRO 1 UNIT/0.01 ML (HUMALOG) DOSE SC SCH ×4 (07:12→21:00)
[2016-08-02 07:56] VITALS: BP 113/74
[2016-08-02] MEDS: POLYETHYLENE GLYCOL 17 GM (MIRALAX) PACKET PO SCH (08:35)
[2016-08-02] MEDS: MAGNESIUM HYDROXIDE 80MG/ML (MILK OF MAGNESIA) 30 ML UDC PO SCH ×4 (08:35→21:00)
[2016-08-02] MEDS: LIDOCAINE (LIDODERM) 5% PATCH TOP SCH (08:35)
[2016-08-02] MEDS: DOCUSATE SODIUM 100 MG (COLACE) CAP PO SCH ×2 (08:35→21:06)
[2016-08-02] MEDS: FERROUS SULFATE 325 MG (IRON) TABLET PO SCH ×2 (08:35→17:39)
--- NOTE | 2016-08-02 10:26 | NUR ---
Pharmacy notified Zosyn delayed due to trouble restarting IV. Pharmacy states run Zosyn over 30 min. and then give Vanco.
[2016-08-02] MEDS: PIPERACILLIN/TAZOBACTAM 3.375 GM in SODIUM CHLORIDE 100 ML IV SCH ×2 (10:32→21:06)
[2016-08-02] MEDS ORDERED: SODIUM CHLORIDE FLUSH 3 ML SYR ONE (11:15)
[2016-08-02] MEDS: SODIUM CHLORIDE 250 ML IV PRN (11:25)
[2016-08-02] MEDS: VANCOMYCIN COMPOUNDED BY PHARMACY IV SCH (11:25)
--- NOTE | 2016-08-02 11:30 | NUR ---
Pharmacy reports vanco trough elevated and instructed to hold vanco. Pedro held
[2016-08-02] MEDS: VANCOMYCIN 750 MG in NORMAL SALINE 150 ML IV SCH (11:31)
--- NOTE | 2016-08-02 11:49 | NUR ---
Vancomycin Dosing: Pharmacy Managed S/O: Current dosing is Vancomycin 750mg IV q24hrs. Trough came back at 22.1 mcg/ml before 3rd dose of change. A/P: Will hold current dose. Will decrease dose to Vancomycin 1 gram IV q36hr with new predicted trough of 17 mcg/ml. Will give next dose on 08-03-16 @ 12:00. Next trough to be drawn before 3rd dose after change (08-06-16 @ 1130).
[2016-08-02 12:00] VITALS: BP 121/83
--- NOTE | 2016-08-02 13:41 | Progress Note (E) ---
Progress Note S: Awake and alert, Long talk with him and he agrees to go to [facility]- Pulled IV out but agrees to have it restarted. O: I & O Past 24 hrs 08/02/16 07:00 Intake Total 811 ml Balance 811 ml Intake Oral 811 ml # Bowel Movements 1 Vital Signs Date Time Temp Pulse Resp B/P Pulse Ox O2 Delivery O2 Flow Rate FiO2 08/02/16 12:00 96.9 115 16 121/83 93 Nasal cannula 07/31/16 04:07 2.00 GEN: Awake and alert- up to the chair, feels constipated now HEENT: EOMI, clear sclerae, very dry oral tongue.. CV: irregular, S1 S2 audible without significant murmur. PULM: Diminished bases. Some audible wheezing, left anterior lung field. ABD: Soft, diffusely and mildly tender to palpation. Active bowel sounds. EXTR: Pulses intact in DP bilaterally. Radial pulses intact. Trace BLE edema INTEG: Pallor. Age related changes. Stage 2 pressure ulcer right buttock. Stage 1 pressure ulcer left buttock. Both present on admit. NEURO: Psychomotor slowing. Generalized, but no focal weakness. Weight: 76.6 kg (69.3 kg on admit) Lab-Past 14 Days, 35 Results 07/21/16 19:02: Absolute Band Neutrophils 4.6, Anion Gap 28.1H, Anisocytosis Slight, BUN/ Creatinine Ratio 47H, Band Neutrophils % 12H, Basophils # (Auto) , Basophils # ( Manual) 0.0, Basophils % (Manual) 0, Basophils (%) (Auto) , Blood Morphology Comment See reference, Blood Urea Nitrogen 210#H, Calcium Level 9.9, Carbon Dioxide Level 19L, Chloride Level 94L, Creatinine 4.43#*H, Differential Total Cells Counted 100, Eosinophils # 0.0, Eosinophils # (Auto) , Eosinophils % ( Manual) 0, Eosinophils (%) (Auto) , Estimat Glomerular Filtration Rate 15.6, Estimated GFR (Non- 12.9, Glucose Level 133H, Hematocrit 19.50#* L, Hemoglobin 6.2#*L, Lymphocytes # 1.2, Lymphocytes # (Auto) , Lymphocytes % ( Manual) 3L, Lymphocytes (%) (Auto) , Mean Corpuscular Hemoglobin 24.4L, Mean Corpuscular Hemoglobin Concent 31.8, Mean Corpuscular Volume 77L, Mean Platelet Volume 9.1, Metamyelocytes % 3H, Microcytosis Slight, Monocytes # 0.8, Monocytes # (Auto) , Monocytes % (Manual) 2L, Monocytes (%) (Auto) , Neutrophils # 30.6, Neutrophils # (Auto) , Neutrophils (%) (Auto) , Platelet Count 679#H, Polychromasia Slight, Potassium Level 3.4L, Red Blood Count 2.54L, Red Cell Distribution Width 18.9H, Schistocytes Slight, Segmented Neutrophils % 80H, Sodium Level 137, White Blood Count 38.29*H 07/21/16 21:00: C-Reactive Protein 3.10H, Lactic Acid Level 2.5H, JL-[id number]-W-Type Natriuretic Peptide 763H 07/22/16 00:15: Urine Bacteria None seen, Urine Bilirubin Negative, Urine Blood Negative, Urine Clarity Clear, Urine Collection Type Clean catch, Urine Color Yellow, Urine Glucose (UA) Negative, Urine Hyaline Casts Rare, Urine Ketones Negative, Urine Leukocyte Esterase Negative, Urine Microscopic RBC 0-2, Urine Nitrite Negative, Urine Protein TraceH, Urine Renal Epithelial Cells 0-2, Urine Specific Prentiss 1.010, Urine Squamous Epithelial Cells 10-20, Urine Urobilinogen 0.2, Urine WBC 2-5, Urine pH 5.5, Volume Urine Centrifuged 12 ml 07/22/16 05:10: Absolute Band Neutrophils 0.8, Anion Gap 22.5H, Anisocytosis Marked, BUN/ Creatinine Ratio 45H, Band Neutrophils % 3, Basophils # (Auto) , Basophils (%) ( Auto) , Blood Morphology Comment See reference, Blood Urea Nitrogen 187H, Calcium Level 9.2, Carbon Dioxide Level 21L, Chloride Level 98, Creatinine 4.17* H, Differential Total Cells Counted 100, Eosinophils # (Auto) , Eosinophils (%) (Auto) , Estimat Glomerular Filtration Rate 16.7, Estimated GFR (Non- 13.8, Glucose Level 112H, Hematocrit 23.80L, Hemoglobin 7.8L, Lymphocytes # 1.4, Lymphocytes # (Auto) , Lymphocytes % (Manual) 5L, Lymphocytes (%) (Auto) , Mean Corpuscular Hemoglobin 25.4L, Mean Corpuscular Hemoglobin Concent 32.8, Mean Corpuscular Volume 78L, Mean Platelet Volume 8.8, Microcytosis Moderate, Monocytes # 2.2, Monocytes # (Auto) , Monocytes % (Manual ) 8, Monocytes (%) (Auto) , Neutrophils # 23.6, Neutrophils # (Auto) , Neutrophils (%) (Auto) , Platelet Count 543H, Polychromasia Slight, Potassium Level 2.9L, Red Blood Count 3.07L, Red Cell Distribution Width 19.1H, Segmented Neutrophils % 83H, Sodium Level 139, White Blood Count 28.47H, Acanthocytes Slight, Basophilic Stippling Moderate, Hypochromasia Slight, Myelocytes 1, Poikilocytosis Moderate, Smear Scan 07/22/16 12:20: Gastric Fluid Occult Blood PositiveH 07/23/16 08:15: Absolute Band Neutrophils 0.2, Anion Gap 16.5H, Anisocytosis Slight, BUN/ Creatinine Ratio 41H, Band Neutrophils % 1, Basophils # (Auto) , Basophils # ( Manual) 0.0, Basophils % (Manual) 0, Basophils (%) (Auto) , Blood Morphology Comment See reference, Blood Urea Nitrogen 148H, Calcium Level 9.7, Carbon Dioxide Level 25, Chloride Level 107, Creatinine 3.57H, Differential Total Cells Counted 100, Eosinophils # 0.0, Eosinophils # (Auto) , Eosinophils % ( Manual) 0, Eosinophils (%) (Auto) , Estimat Glomerular Filtration Rate 20.0, Estimated GFR (Non- 16.5, Glucose Level 123H, Hematocrit 22.70L , Hemoglobin 7.5L, Lymphocytes # 0.6, Lymphocytes # (Auto) , Lymphocytes % ( Manual) 3L, Lymphocytes (%) (Auto) , Mean Corpuscular Hemoglobin 25.9L, Mean Corpuscular Hemoglobin Concent 33.0, Mean Corpuscular Volume 78L, Mean Platelet Volume 8.4, Metamyelocytes % 2H, Microcytosis Slight, Monocytes # 1.6, Monocytes # (Auto) , Monocytes % (Manual) 8, Monocytes (%) (Auto) , Neutrophils # 18.0, Neutrophils # (Auto) , Neutrophils (%) (Auto) , Platelet Count 489H, Polychromasia Slight, Potassium Level 2.9L, Red Blood Count 2.90L, Red Cell Distribution Width 19.4H, Segmented Neutrophils % 86H, Sodium Level 146#, White Blood Count 20.93H 07/24/16 05:40: Absolute Band Neutrophils 0.4, Anion Gap 13.1, Anisocytosis Moderate, BUN/ Creatinine Ratio 40H, Band Neutrophils % 2, Basophils # (Auto) , Basophils # ( Manual) 0.0, Basophils % (Manual) 0, Basophils (%) (Auto) , Blood Morphology Comment See reference, Blood Urea Nitrogen 111H, Calcium Level 10.0, Carbon Dioxide Level 25, Chloride Level 110H, Creatinine 2.80H, Differential Total Cells Counted 100, Eosinophils # 0.0, Eosinophils # (Auto) , Eosinophils % ( Manual) 0, Eosinophils (%) (Auto) , Estimat Glomerular Filtration Rate 26.5, Estimated GFR (Non- 21.9, Glucose Level 129H, Hematocrit 21.70L , Hemoglobin 6.9*L, Lymphocytes # 0.4, Lymphocytes # (Auto) , Lymphocytes % ( Manual) 2L, Lymphocytes (%) (Auto) , Mean Corpuscular Hemoglobin 25.5L, Mean Corpuscular Hemoglobin Concent 31.8, Mean Corpuscular Volume 80, Mean Platelet Volume 8.1, Monocytes # 2.0, Monocytes # (Auto) , Monocytes % (Manual) 9, Monocytes (%) (Auto) , Neutrophils # 19.2, Neutrophils # (Auto) , Neutrophils (% ) (Auto) , Platelet Count 448, Potassium Level 3.7#, Red Blood Count 2.70L, Red Cell Distribution Width 19.7H, Segmented Neutrophils % 87H, Sodium Level 144, White Blood Count 22.07H 07/25/16 05:35: Absolute Band Neutrophils 0.0, Anion Gap 17.6H, Anisocytosis Slight, Band Neutrophils % 0, Basophils # (Auto) , Basophils # (Manual) 0.0, Basophils % ( Manual) 0, Basophils (%) (Auto) , Blood Morphology Comment See reference, Blood Urea Nitrogen 88H, Calcium Level 10.9H, Carbon Dioxide Level 24, Chloride Level 110H, Creatinine 2.21H, Differential Total Cells Counted 100, Eosinophils # 0.0 , Eosinophils # (Auto) , Eosinophils % (Manual) 0, Eosinophils (%) (Auto) , Estimat Glomerular Filtration Rate 34.8, Estimated GFR (Non- 28.7, Glucose Level 136H, Hematocrit 30.10L, Hemoglobin 9.7L, Lymphocytes # 0.7 , Lymphocytes # (Auto) , Lymphocytes % (Manual) 3L, Lymphocytes (%) (Auto) , Mean Corpuscular Hemoglobin 26.5, Mean Corpuscular Hemoglobin Concent 32.2, Mean Corpuscular Volume 82, Mean Platelet Volume 8.9, Metamyelocytes % 1, Monocytes # 3.1, Monocytes # (Auto) , Monocytes % (Manual) 14H, Monocytes (%) ( Auto) , Neutrophils # 18.8, Neutrophils # (Auto) , Neutrophils (%) (Auto) , Platelet Count 427, Potassium Level 3.9, Red Blood Count 3.66L, Red Cell Distribution Width 19.0H, Segmented Neutrophils % 82H, Sodium Level 148, White Blood Count 22.91H, Albumin 3.1#L, C-Reactive Protein 16.30H, Magnesium Level 2.0, Phosphorus Level 4.7#, Poikilocytosis Slight 07/26/16 05:30: Absolute Band Neutrophils 0.4, Albumin 3.4, Anion Gap 19.1H, Anisocytosis Slight , Band Neutrophils % 2, Basophils # (Auto) , Basophils # (Manual) 0.0, Basophils % (Manual) 0, Basophils (%) (Auto) , Blood Morphology Comment See reference, Blood Urea Nitrogen 77H, Calcium Level 11.3H, Carbon Dioxide Level 22 , Chloride Level 109H, Creatinine 2.11H, Differential Total Cells Counted 100, Eosinophils # 0.0, Eosinophils # (Auto) , Eosinophils % (Manual) 0, Eosinophils (%) (Auto) , Estimat Glomerular Filtration Rate 36.7, Estimated GFR (Non- 30.3, Glucose Level 123H, Hematocrit 31.30L, Hemoglobin 9.9L, Lymphocytes # 1.3, Lymphocytes # (Auto) , Lymphocytes % (Manual) 6L, Lymphocytes (%) (Auto) , Mean Corpuscular Hemoglobin 26.0, Mean Corpuscular Hemoglobin Concent 31.6, Mean Corpuscular Volume 82, Mean Platelet Volume 9.0, Metamyelocytes % 0, Monocytes # 2.1, Monocytes # (Auto) , Monocytes % (Manual) 10, Monocytes (%) (Auto) , Neutrophils # 18.0, Neutrophils # (Auto) , Neutrophils (%) (Auto) , Phosphorus Level 4.5, Platelet Count 462H, Poikilocytosis Slight, Potassium Level 3.9, Red Blood Count 3.81L, Red Cell Distribution Width 19.6H, Segmented Neutrophils % 82H, Sodium Level 147, White Blood Count 21.95H 07/27/16 06:10: Albumin 3.5, Anion Gap 19.3H, Anisocytosis Moderate, Basophils # (Auto) , Basophils (%) (Auto) , Blood Morphology Comment See reference, Blood Urea Nitrogen 78H, Calcium Level 11.6H, Carbon Dioxide Level 24, Chloride Level 109H , Creatinine 2.15H, Differential Total Cells Counted 100, Eosinophils # (Auto) , Eosinophils (%) (Auto) , Estimat Glomerular Filtration Rate 35.9, Estimated GFR (Non- 29.7, Glucose Level 112H, Hematocrit 32.00L, Hemoglobin 10.2L, Lymphocytes # 0.5, Lymphocytes # (Auto) , Lymphocytes % ( Manual) 2L, Lymphocytes (%) (Auto) , Mean Corpuscular Hemoglobin 26.5, Mean Corpuscular Hemoglobin Concent 31.9, Mean Corpuscular Volume 83, Mean Platelet Volume 8.7, Monocytes # 1.1, Monocytes # (Auto) , Monocytes % (Manual) 5, Monocytes (%) (Auto) , Neutrophils # 20.8, Neutrophils # (Auto) , Neutrophils (% ) (Auto) , Phosphorus Level 5.4H, Platelet Count 482H, Poikilocytosis Slight, Potassium Level 4.1, Red Blood Count 3.85L, Red Cell Distribution Width 19.5H, Segmented Neutrophils % 93H, Sodium Level 148, White Blood Count 22.36H, Basophilic Stippling Slight, C-Reactive Protein 12.80H, Hypochromasia Slight, Microcytosis Slight 07/29/16 05:25: Absolute Band Neutrophils 0.2, Albumin 3.3L, Anion Gap 18.2H, Anisocytosis Moderate, Band Neutrophils % 1, Basophils # (Auto) , Basophils # (Manual) 0.0, Basophils % (Manual) 0, Basophils (%) (Auto) , Blood Morphology Comment See reference, Blood Urea Nitrogen 63H, Calcium Level 12.1H, Carbon Dioxide Level 26 , Chloride Level 110H, Creatinine 2.18H, Differential Total Cells Counted 100, Eosinophils # 0.0, Eosinophils # (Auto) , Eosinophils % (Manual) 0, Eosinophils (%) (Auto) , Estimat Glomerular Filtration Rate 35.3, Estimated GFR (Non- 29.2, Glucose Level 112H, Hematocrit 31.50L, Hemoglobin 9.7L, Lymphocytes # 1.2, Lymphocytes # (Auto) , Lymphocytes % (Manual) 6L, Lymphocytes (%) (Auto) , Mean Corpuscular Hemoglobin 26.1, Mean Corpuscular Hemoglobin Concent 30.8L, Mean Corpuscular Volume 85, Mean Platelet Volume 8.6, Metamyelocytes % 0, Monocytes # 1.7, Monocytes # (Auto) , Monocytes % (Manual) 9 , Monocytes (%) (Auto) , Neutrophils # 16.3, Neutrophils # (Auto) , Neutrophils (%) (Auto) , Phosphorus Level 5.7H, Platelet Count 394, Poikilocytosis Slight, Potassium Level 4.0, Red Blood Count 3.71L, Red Cell Distribution Width 20.1H, Segmented Neutrophils % 84H, Sodium Level 151H, White Blood Count 19.37H, Basophilic Stippling Slight, C-Reactive Protein 7.10H, Microcytosis Slight, Magnesium Level 1.8, VZ-Kek-C-Type Natriuretic Peptide 2980H 07/29/16 10:30: Vancomycin Level Trough 11.2 07/30/16 05:40: Absolute Band Neutrophils 1.0, Albumin 3.2L, Anion Gap 20.7H, Anisocytosis Moderate, Band Neutrophils % 6, Basophilic Stippling Slight, Basophils # (Auto) , Basophils # (Manual) 0.0, Basophils % (Manual) 0, Basophils (%) (Auto) , Blood Morphology Comment See reference, Blood Urea Nitrogen 67H, Calcium Level 12.3H, Carbon Dioxide Level 27, Chloride Level 108, Creatinine 2.39H, Differential Total Cells Counted 100, Eosinophils # 0.0, Eosinophils # (Auto) , Eosinophils % (Manual) 0, Eosinophils (%) (Auto) , Estimat Glomerular Filtration Rate 31.8, Estimated GFR (Non- 26.2, Glucose Level 113H, Hematocrit 31.80L, Hemoglobin 9.9L, Lymphocytes # 0.5, Lymphocytes # (Auto ) , Lymphocytes % (Manual) 3L, Lymphocytes (%) (Auto) , Magnesium Level 1.8, Mean Corpuscular Hemoglobin 26.4, Mean Corpuscular Hemoglobin Concent 31.1, Mean Corpuscular Volume 85, Mean Platelet Volume 8.6, Metamyelocytes % 0, Monocytes # 0.7, Monocytes # (Auto) , Monocytes % (Manual) 4, Monocytes (%) ( Auto) , Neutrophils # 15.5, Neutrophils # (Auto) , Neutrophils (%) (Auto) , Phosphorus Level 5.4H, Platelet Count 308, Poikilocytosis Slight, Potassium Level 3.8, Red Blood Count 3.75L, Red Cell Distribution Width 20.0H, Segmented Neutrophils % 87H, Sodium Level 152H, White Blood Count 17.84H MICRO 07/26 Blood culture Negative to date 07/21 Blood culture Negative to date IMAGING 07/30/16 CT HEAD: PENDING 07/28/16 LUMBAR SPINE - 2-3 VIEWS INDICATION: Back pain after fall. Two views were obtained. FINDINGS: There is grade 2 spondylolisthesis of L5 on S1. There is moderate degenerative disc disease at L4-5. The vertebral body heights are relatively well-maintained. There is marked lower lumbar hypertrophic degenerative facet disease. IMPRESSION: Severe degenerative changes in lower lumbar spine most of which appear chronic. In light of the osteopenia, possibility of an occult or early compression fracture cannot be entirely excluded. Recommend clinical correlation and if warranted followup with MRI. 07/26/16 CHEST PA/LAT (2 VIEW)* INDICATION: Respiratory distress. COMPARISON: and CT chest from 01/26/2016. FINDINGS: The left midlung zone pulmonary nodule is similar. No new airspace disease. No pleural effusion or pneumothorax. Stable left-sided pleural thickening. Stable right jugular central venous catheter. Stable mild cardiomegaly with a tortuous aorta. IMPRESSION: 1. Stable left midlung zone pulmonary nodule and left-sided pleural thickening. 2. No definite new airspace disease or pleural effusion. 3. A followup CT chest should be considered for assessment of stability of the left pulmonary nodule as it appears larger than on the chest x-ray from 2015. 07/21/16 CHEST 1 VIEW, AP/PA ONLY* INDICATION: Elevated white blood cell count. COMPARISON: 03/27/2016. FINDINGS: A left lung nodule measuring 2.8 cm is present and is likely increased in size when compared to CT from January 2016. Air trapping and COPD chronic. No effusion or pneumothorax. IMPRESSION: Increasing size of left upper lobe lung mass laterally measuring at least 2.7 cm today, on earlier CT it was about 1.6 cm. COPD. No other change. 07/21/16 CHEST 1 VIEW, AP/PA ONLY* INDICATION: Central line placement Portable chest 9:41 PM Right jugular central line tip projects over the right innominate vein. There is a 2 cm pulmonary nodule left mid lateral lung as well as some pleural thickening in the left lower lateral chest adjacent to this. The right lung is clear. There is no effusion or pneumothorax. There appears to be some emphysematous change in the lungs. IMPRESSION: Pleural thickening and pulmonary nodule left lung unchanged from previous day. REFERENCE 03/28/2016 ECHO: Summary: LA enlargement. Concentric LVH. INtact LV systolic function with EF 65%. Calcified aortic valve with mean gradient 16 mmHg, consistent with mild to moderate ; mild AI. Mitral annular calcification, trace mitral insufficiency. Trace tricuspid insufficiency. Pulmonary hypertension with PA systolic pressure 51 mmHg (mild to moderate.) No pericardial effusion. ASSESSMENT Addy Fragoso is a 80 year old male admitted from home 07/24 with SIRS and probable sepsis though source on admit was uncertain. He met criteria on admit with HR > 90 and leukocytosis. He had acute on chronic hypoxic respiratory failure as well. He has underlying lung cancer with a primary pulmonary nodule in the left lung that has grown since prior CT scan 03/2016. He had marked anemia on admit. He has numerous chronic medical problems. Prior to this admit he had been on home hospice service but he revoked this. He has had prolonged hospitalization due to persistent respiratory distress, persistent leukocytosis (without definitive source of infection) and generalized deconditioning. PLAN * SIRS, probable sepsis: Source of infection uncertain. Leukocytosis improved since admit but then remained persistently elevated. Blood cultures negative to date. CXR less consistent with pneumonia. Got ceftriaxone and azithromycin empirically on admit. Escalated antibiotics because of persistent leukocytosis. * Leukocytosis: WBC 38.29 on admit, initially improved but then stagnant . Infectious? Reactive to anemia? Initial blood culture negative. Repeat blood culture negative. Since WBC not improving, escalated antibiotic 07/26 to pip- tazo and vanco. He then started showing slow improvement with WBC 17.84 07/30 and CRP dropping from peak 16.30 to 7.10. * Delirium, Encephalopathy: Getting worse. Multifactorial. Added low-dose quetiapine 07/29. Has not head imaging so check CT head 07/30 (because of history of lung cancer). * Acute on Chronic Hypoxic Respiratory Failure: Oxygen protocol. IS. * Iron Deficiency Anemia: Hgb on admit 6.2. Stool positive for occult blood. Got 2 units on admit. Additional 2 units 07/24. Transfuse for Hgb < 8. Iron supplement. * COPD with Acute Exacerbation: Acute exacerbation resolving. No apparent pneumonia on CXR. Could be bronchitis. Duoneb scheduled. Albuterol PRN. * FRANCISCO: Creatinine was 4.17 on admit, improving gradually, 2.21 07/25. Worse with diuresis started on 07/28, so furosemide was stopped. Monitor trend. * Non-Small Cell Lung Cancer: On the basis of biopsy 02/15. Has declined further workup or treatment for this. Had been on hospice for two weeks prior to this admit, but he has since revoked that. Nodule growing in size compared to CT scan from March 2016. For now, observe. * Back Pain: L-spine plain film as noted. Hydrocodone/acetaminophen, hydromorphone, lidoderm. PT/OT deferred because of pain, irritability. * Falls at Home: PT/OT deferred because of pain, irritability. * Pressure Ulcers: Stage 1 left buttock, stage 2 right buttock, present on admit. Due to him sitting in chair for long periods of time at home. Pressure relieving strategies. Mepilex. * Pedal Edema: JOHN kebede. Started furosemide 07/28 but stopped due to hypernatremia, FRANCISCO. * Hypernatremia: Aggravated by diuresis. Stopped furosemide. If worsening, give D5W. * Constipation: Bowel regimen. Scheduled dosing until constipation improves. * Deconditioning: He does not want to participate with PT/OT so this has not been ordered. * F/E/N: Soft diet. Stopped IVF 07/24. Right IJ central line. * Prophylaxis: SCDs * Code Status: DNR * Dispo: Inpatient. Had been on hospice prior to this admit but took himself off. Have had conversation with daughter regarding code status, DPOA-HC. At present, patient has some periods of confusion but has some limited capacity. Overall prognosis poor. Family meeting at 1830 07/26 and he wants to continue therapy but elected DNR. Will not be able to return home and is agreeable to placement at [facility] when appropriate. Uncertain end-points for this hospitalization but he is not well enough for discharge and has not consented to comfort care. Complained of constipation- abdominal series done shows stool- enemas x 2 given with good results. CHRONIC ISSUES * Gout: Off allopurinol. * Diabetes Mellitus Type II: A1C 5.8 on prior admit. Metformin on hold. Sliding scale. * HTN: Indapamide, losartan, metoprolol all on hold. * Prostate Cancer: S/P radiation. Observe. * Pulmonary Hypertension: Oxygen * GERD: pantoprazole Pt seen and examined, agree with above. Pt allowed IV to be replaced. Will complete 14 days of abx then send him to [facility]. Not a candidate for skilled care. Kusum Pate APRN August 02, 2016 13:41 Rodrigo Nelson MD August 02, 2016 21:11
--- NOTE | 2016-08-02 15:18 | NUR ---
CALM. WATCHING TV. REQUESTED SPORTS CHANNEL TO [email or web address].SPORTS CHANNEL FOUND FOR PATIENT.
[2016-08-02 16:00] VITALS: BP 131/71
[2016-08-02] MEDS: HYDROcodone/APAP 7.5 MG/325 MG (NORCO) TABLET PO PRN (19:22)
--- NOTE | 2016-08-02 19:30 | NUR ---
Pt's family requests he have pain medication. Pt grimaces as head of bed is elevated to 80 degrees. Pt his given pill whole with water. Pt has a weak cough after taking his pill.
--- NOTE | 2016-08-02 20:05 | NUR ---
Pt lying in bed with two daughters at bedside, SPO2 97% on 4 l/min NC. No PRN respiratory intervention indicated at this time.
--- NOTE | 2016-08-02 20:10 | NUR ---
Pt refuses to let [employer] take his vitals at this time.
[2016-08-02] MEDS: QUEtiapine 25 MG (SEROquel) TAB IMMEDIATE RELEASE PO SCH (21:06)
[2016-08-02] MEDS: SODIUM CHLORIDE FLUSH 10 ML SYR IV SCH (21:07)
[2016-08-02] MEDS: PATCH REMOVAL TOP SCH (22:19)
[2016-08-03] VITALS (7 sets, daily range): BP systolic 121–152; BP diastolic 64–90
[2016-08-03] MEDS: HYDROmorphone 1 MG/ML (DILAUDID) SYRINGE IV PRN ×2 (02:17→09:32)
[2016-08-03] MEDS: PANTOPRAZOLE 40 MG (PROTONIX) TAB PO SCH (06:01)
[2016-08-03] MEDS: INSULIN LISPRO 1 UNIT/0.01 ML (HUMALOG) DOSE SC SCH ×4 (06:03→20:49)
--- NOTE | 2016-08-03 06:09 | NUR ---
Pt rests this shift. PRN medications given for pain. SL intact. Resp even, shallow on 4L oxygen per nc.
[2016-08-03] MEDS ORDERED: SODIUM CHLORIDE FLUSH 3 ML SYR ONE ×2 (08:47→18:17)
[2016-08-03] MEDS: PIPERACILLIN/TAZOBACTAM 3.375 GM in SODIUM CHLORIDE 100 ML IV SCH (08:54)
[2016-08-03] MEDS: LIDOCAINE (LIDODERM) 5% PATCH TOP SCH (09:20)
[2016-08-03] MEDS: POLYETHYLENE GLYCOL 17 GM (MIRALAX) PACKET PO SCH (09:20)
[2016-08-03] MEDS: DOCUSATE SODIUM 100 MG (COLACE) CAP PO SCH ×2 (09:20→20:26)
[2016-08-03] MEDS: MAGNESIUM HYDROXIDE 80MG/ML (MILK OF MAGNESIA) 30 ML UDC PO SCH ×4 (09:20→20:26)
[2016-08-03] MEDS: FERROUS SULFATE 325 MG (IRON) TABLET PO SCH ×2 (09:20→17:58)
--- NOTE | 2016-08-03 09:21 | NUR ---
Contacted Pt. daughter Seema ([phone]) and let her know Pt. is anticipated to discharge tomorrow. Pt. is agreeable to go to [facility]. Seema said they have not recently talked to their dad about going on hospice. SW told Seema they would need to contact [facility] and discuss what paperwork needs to be completed in order for Pt. to be placed there tomorrow. Seema agreed to do so.
--- NOTE | 2016-08-03 09:41 | NUR ---
COMPLAINING OF BACK PAIN UPON TURNING. DID NOT VIPIN WELL.UNABLE TO RATE PAIN. PAIN MED GIVEN. TAKING SIPS OF FLUID. DRANK ONLY 1/3 OF MIRALAX.
--- NOTE | 2016-08-03 10:31 | Progress Note (E) ---
Progress Note S: Had Dilaudid this am for c/o pain, hurts to move him or turn side to side. no distress, tired and weak. resting quietly now- VSS O: I & O Past 24 hrs 08/03/16 07:00 Intake Total 885 ml Output Total 350 ml Balance 535 ml Intake Oral 746 ml IV Total 139 ml Output Urine Total 350 ml # Bowel Movements 4 Vital Signs Date Time Temp Pulse Resp B/P Pulse Ox O2 Delivery O2 Flow Rate FiO2 08/03/16 07:37 97.2 115 15 128/64 99 Nasal cannula 07/31/16 04:07 2.00 GEN: Resting in bed- had just been given pain medicine. No eating much at all, takes sips only. HEENT: EOMI, clear sclerae, very dry oral tongue.. CV: irregular, S1 S2 audible without significant murmur. PULM: Diminished bases. Some audible wheezing, left anterior lung field. ABD: Soft, diffusely and mildly tender to palpation. Active bowel sounds. EXTR: Pulses intact in DP bilaterally. Radial pulses intact. Trace BLE edema INTEG: Pallor. Age related changes. Stage 2 pressure ulcer right buttock. Stage 1 pressure ulcer left buttock. Both present on admit. NEURO: Psychomotor slowing. Generalized, but no focal weakness. Weight: 76.6 kg (69.3 kg on admit) Lab-Past 14 Days, 35 Results 07/21/16 19:02: Absolute Band Neutrophils 4.6, Anion Gap 28.1H, Anisocytosis Slight, BUN/ Creatinine Ratio 47H, Band Neutrophils % 12H, Basophils # (Auto) , Basophils # ( Manual) 0.0, Basophils % (Manual) 0, Basophils (%) (Auto) , Blood Morphology Comment See reference, Blood Urea Nitrogen 210#H, Calcium Level 9.9, Carbon Dioxide Level 19L, Chloride Level 94L, Creatinine 4.43#*H, Differential Total Cells Counted 100, Eosinophils # 0.0, Eosinophils # (Auto) , Eosinophils % ( Manual) 0, Eosinophils (%) (Auto) , Estimat Glomerular Filtration Rate 15.6, Estimated GFR (Non- 12.9, Glucose Level 133H, Hematocrit 19.50#* L, Hemoglobin 6.2#*L, Lymphocytes # 1.2, Lymphocytes # (Auto) , Lymphocytes % ( Manual) 3L, Lymphocytes (%) (Auto) , Mean Corpuscular Hemoglobin 24.4L, Mean Corpuscular Hemoglobin Concent 31.8, Mean Corpuscular Volume 77L, Mean Platelet Volume 9.1, Metamyelocytes % 3H, Microcytosis Slight, Monocytes # 0.8, Monocytes # (Auto) , Monocytes % (Manual) 2L, Monocytes (%) (Auto) , Neutrophils # 30.6, Neutrophils # (Auto) , Neutrophils (%) (Auto) , Platelet Count 679#H, Polychromasia Slight, Potassium Level 3.4L, Red Blood Count 2.54L, Red Cell Distribution Width 18.9H, Schistocytes Slight, Segmented Neutrophils % 80H, Sodium Level 137, White Blood Count 38.29*H 07/21/16 21:00: C-Reactive Protein 3.10H, Lactic Acid Level 2.5H, FW-Nob-T-Type Natriuretic Peptide 763H 07/22/16 00:15: Urine Bacteria None seen, Urine Bilirubin Negative, Urine Blood Negative, Urine Clarity Clear, Urine Collection Type Clean catch, Urine Color Yellow, Urine Glucose (UA) Negative, Urine Hyaline Casts Rare, Urine Ketones Negative, Urine Leukocyte Esterase Negative, Urine Microscopic RBC 0-2, Urine Nitrite Negative, Urine Protein TraceH, Urine Renal Epithelial Cells 0-2, Urine Specific [place] 1.010, Urine Squamous Epithelial Cells 10-20, Urine Urobilinogen 0.2, Urine WBC 2-5, Urine pH 5.5, Volume Urine Centrifuged 12 ml 07/22/16 05:10: Absolute Band Neutrophils 0.8, Anion Gap 22.5H, Anisocytosis Marked, BUN/ Creatinine Ratio 45H, Band Neutrophils % 3, Basophils # (Auto) , Basophils (%) ( Auto) , Blood Morphology Comment See reference, Blood Urea Nitrogen 187H, Calcium Level 9.2, Carbon Dioxide Level 21L, Chloride Level 98, Creatinine 4.17* H, Differential Total Cells Counted 100, Eosinophils # (Auto) , Eosinophils (%) (Auto) , Estimat Glomerular Filtration Rate 16.7, Estimated GFR (Non- 13.8, Glucose Level 112H, Hematocrit 23.80L, Hemoglobin 7.8L, Lymphocytes # 1.4, Lymphocytes # (Auto) , Lymphocytes % (Manual) 5L, Lymphocytes (%) (Auto) , Mean Corpuscular Hemoglobin 25.4L, Mean Corpuscular Hemoglobin Concent 32.8, Mean Corpuscular Volume 78L, Mean Platelet Volume 8.8, Microcytosis Moderate, Monocytes # 2.2, Monocytes # (Auto) , Monocytes % (Manual ) 8, Monocytes (%) (Auto) , Neutrophils # 23.6, Neutrophils # (Auto) , Neutrophils (%) (Auto) , Platelet Count 543H, Polychromasia Slight, Potassium Level 2.9L, Red Blood Count 3.07L, Red Cell Distribution Width 19.1H, Segmented Neutrophils % 83H, Sodium Level 139, White Blood Count 28.47H, Acanthocytes Slight, Basophilic Stippling Moderate, Hypochromasia Slight, Myelocytes 1, Poikilocytosis Moderate, Smear Scan 07/22/16 12:20: Gastric Fluid Occult Blood PositiveH 07/23/16 08:15: Absolute Band Neutrophils 0.2, Anion Gap 16.5H, Anisocytosis Slight, BUN/ Creatinine Ratio 41H, Band Neutrophils % 1, Basophils # (Auto) , Basophils # ( Manual) 0.0, Basophils % (Manual) 0, Basophils (%) (Auto) , Blood Morphology Comment See reference, Blood Urea Nitrogen 148H, Calcium Level 9.7, Carbon Dioxide Level 25, Chloride Level 107, Creatinine 3.57H, Differential Total Cells Counted 100, Eosinophils # 0.0, Eosinophils # (Auto) , Eosinophils % ( Manual) 0, Eosinophils (%) (Auto) , Estimat Glomerular Filtration Rate 20.0, Estimated GFR (Non- 16.5, Glucose Level 123H, Hematocrit 22.70L , Hemoglobin 7.5L, Lymphocytes # 0.6, Lymphocytes # (Auto) , Lymphocytes % ( Manual) 3L, Lymphocytes (%) (Auto) , Mean Corpuscular Hemoglobin 25.9L, Mean Corpuscular Hemoglobin Concent 33.0, Mean Corpuscular Volume 78L, Mean Platelet Volume 8.4, Metamyelocytes % 2H, Microcytosis Slight, Monocytes # 1.6, Monocytes # (Auto) , Monocytes % (Manual) 8, Monocytes (%) (Auto) , Neutrophils # 18.0, Neutrophils # (Auto) , Neutrophils (%) (Auto) , Platelet Count 489H, Polychromasia Slight, Potassium Level 2.9L, Red Blood Count 2.90L, Red Cell Distribution Width 19.4H, Segmented Neutrophils % 86H, Sodium Level 146#, White Blood Count 20.93H 07/24/16 05:40: Absolute Band Neutrophils 0.4, Anion Gap 13.1, Anisocytosis Moderate, BUN/ Creatinine Ratio 40H, Band Neutrophils % 2, Basophils # (Auto) , Basophils # ( Manual) 0.0, Basophils % (Manual) 0, Basophils (%) (Auto) , Blood Morphology Comment See reference, Blood Urea Nitrogen 111H, Calcium Level 10.0, Carbon Dioxide Level 25, Chloride Level 110H, Creatinine 2.80H, Differential Total Cells Counted 100, Eosinophils # 0.0, Eosinophils # (Auto) , Eosinophils % ( Manual) 0, Eosinophils (%) (Auto) , Estimat Glomerular Filtration Rate 26.5, Estimated GFR (Non- 21.9, Glucose Level 129H, Hematocrit 21.70L , Hemoglobin 6.9*L, Lymphocytes # 0.4, Lymphocytes # (Auto) , Lymphocytes % ( Manual) 2L, Lymphocytes (%) (Auto) , Mean Corpuscular Hemoglobin 25.5L, Mean Corpuscular Hemoglobin Concent 31.8, Mean Corpuscular Volume 80, Mean Platelet Volume 8.1, Monocytes # 2.0, Monocytes # (Auto) , Monocytes % (Manual) 9, Monocytes (%) (Auto) , Neutrophils # 19.2, Neutrophils # (Auto) , Neutrophils (% ) (Auto) , Platelet Count 448, Potassium Level 3.7#, Red Blood Count 2.70L, Red Cell Distribution Width 19.7H, Segmented Neutrophils % 87H, Sodium Level 144, White Blood Count 22.07H 07/25/16 05:35: Absolute Band Neutrophils 0.0, Anion Gap 17.6H, Anisocytosis Slight, Band Neutrophils % 0, Basophils # (Auto) , Basophils # (Manual) 0.0, Basophils % ( Manual) 0, Basophils (%) (Auto) , Blood Morphology Comment See reference, Blood Urea Nitrogen 88H, Calcium Level 10.9H, Carbon Dioxide Level 24, Chloride Level 110H, Creatinine 2.21H, Differential Total Cells Counted 100, Eosinophils # 0.0 , Eosinophils # (Auto) , Eosinophils % (Manual) 0, Eosinophils (%) (Auto) , Estimat Glomerular Filtration Rate 34.8, Estimated GFR (Non- 28.7, Glucose Level 136H, Hematocrit 30.10L, Hemoglobin 9.7L, Lymphocytes # 0.7 , Lymphocytes # (Auto) , Lymphocytes % (Manual) 3L, Lymphocytes (%) (Auto) , Mean Corpuscular Hemoglobin 26.5, Mean Corpuscular Hemoglobin Concent 32.2, Mean Corpuscular Volume 82, Mean Platelet Volume 8.9, Metamyelocytes % 1, Monocytes # 3.1, Monocytes # (Auto) , Monocytes % (Manual) 14H, Monocytes (%) ( Auto) , Neutrophils # 18.8, Neutrophils # (Auto) , Neutrophils (%) (Auto) , Platelet Count 427, Potassium Level 3.9, Red Blood Count 3.66L, Red Cell Distribution Width 19.0H, Segmented Neutrophils % 82H, Sodium Level 148, White Blood Count 22.91H, Albumin 3.1#L, C-Reactive Protein 16.30H, Magnesium Level 2.0, Phosphorus Level 4.7#, Poikilocytosis Slight 07/26/16 05:30: Absolute Band Neutrophils 0.4, Albumin 3.4, Anion Gap 19.1H, Anisocytosis Slight , Band Neutrophils % 2, Basophils # (Auto) , Basophils # (Manual) 0.0, Basophils % (Manual) 0, Basophils (%) (Auto) , Blood Morphology Comment See reference, Blood Urea Nitrogen 77H, Calcium Level 11.3H, Carbon Dioxide Level 22 , Chloride Level 109H, Creatinine 2.11H, Differential Total Cells Counted 100, Eosinophils # 0.0, Eosinophils # (Auto) , Eosinophils % (Manual) 0, Eosinophils (%) (Auto) , Estimat Glomerular Filtration Rate 36.7, Estimated GFR (Non- 30.3, Glucose Level 123H, Hematocrit 31.30L, Hemoglobin 9.9L, Lymphocytes # 1.3, Lymphocytes # (Auto) , Lymphocytes % (Manual) 6L, Lymphocytes (%) (Auto) , Mean Corpuscular Hemoglobin 26.0, Mean Corpuscular Hemoglobin Concent 31.6, Mean Corpuscular Volume 82, Mean Platelet Volume 9.0, Metamyelocytes % 0, Monocytes # 2.1, Monocytes # (Auto) , Monocytes % (Manual) 10, Monocytes (%) (Auto) , Neutrophils # 18.0, Neutrophils # (Auto) , Neutrophils (%) (Auto) , Phosphorus Level 4.5, Platelet Count 462H, Poikilocytosis Slight, Potassium Level 3.9, Red Blood Count 3.81L, Red Cell Distribution Width 19.6H, Segmented Neutrophils % 82H, Sodium Level 147, White Blood Count 21.95H 07/27/16 06:10: Albumin 3.5, Anion Gap 19.3H, Anisocytosis Moderate, Basophils # (Auto) , Basophils (%) (Auto) , Blood Morphology Comment See reference, Blood Urea Nitrogen 78H, Calcium Level 11.6H, Carbon Dioxide Level 24, Chloride Level 109H , Creatinine 2.15H, Differential Total Cells Counted 100, Eosinophils # (Auto) , Eosinophils (%) (Auto) , Estimat Glomerular Filtration Rate 35.9, Estimated GFR (Non- 29.7, Glucose Level 112H, Hematocrit 32.00L, Hemoglobin 10.2L, Lymphocytes # 0.5, Lymphocytes # (Auto) , Lymphocytes % ( Manual) 2L, Lymphocytes (%) (Auto) , Mean Corpuscular Hemoglobin 26.5, Mean Corpuscular Hemoglobin Concent 31.9, Mean Corpuscular Volume 83, Mean Platelet Volume 8.7, Monocytes # 1.1, Monocytes # (Auto) , Monocytes % (Manual) 5, Monocytes (%) (Auto) , Neutrophils # 20.8, Neutrophils # (Auto) , Neutrophils (% ) (Auto) , Phosphorus Level 5.4H, Platelet Count 482H, Poikilocytosis Slight, Potassium Level 4.1, Red Blood Count 3.85L, Red Cell Distribution Width 19.5H, Segmented Neutrophils % 93H, Sodium Level 148, White Blood Count 22.36H, Basophilic Stippling Slight, C-Reactive Protein 12.80H, Hypochromasia Slight, Microcytosis Slight 07/29/16 05:25: Absolute Band Neutrophils 0.2, Albumin 3.3L, Anion Gap 18.2H, Anisocytosis Moderate, Band Neutrophils % 1, Basophils # (Auto) , Basophils # (Manual) 0.0, Basophils % (Manual) 0, Basophils (%) (Auto) , Blood Morphology Comment See reference, Blood Urea Nitrogen 63H, Calcium Level 12.1H, Carbon Dioxide Level 26 , Chloride Level 110H, Creatinine 2.18H, Differential Total Cells Counted 100, Eosinophils # 0.0, Eosinophils # (Auto) , Eosinophils % (Manual) 0, Eosinophils (%) (Auto) , Estimat Glomerular Filtration Rate 35.3, Estimated GFR (Non- 29.2, Glucose Level 112H, Hematocrit 31.50L, Hemoglobin 9.7L, Lymphocytes # 1.2, Lymphocytes # (Auto) , Lymphocytes % (Manual) 6L, Lymphocytes (%) (Auto) , Mean Corpuscular Hemoglobin 26.1, Mean Corpuscular Hemoglobin Concent 30.8L, Mean Corpuscular Volume 85, Mean Platelet Volume 8.6, Metamyelocytes % 0, Monocytes # 1.7, Monocytes # (Auto) , Monocytes % (Manual) 9 , Monocytes (%) (Auto) , Neutrophils # 16.3, Neutrophils # (Auto) , Neutrophils (%) (Auto) , Phosphorus Level 5.7H, Platelet Count 394, Poikilocytosis Slight, Potassium Level 4.0, Red Blood Count 3.71L, Red Cell Distribution Width 20.1H, Segmented Neutrophils % 84H, Sodium Level 151H, White Blood Count 19.37H, Basophilic Stippling Slight, C-Reactive Protein 7.10H, Microcytosis Slight, Magnesium Level 1.8, OC-Uwt-N-Type Natriuretic Peptide 2980H 07/29/16 10:30: Vancomycin Level Trough 11.2 07/30/16 05:40: Absolute Band Neutrophils 1.0, Albumin 3.2L, Anion Gap 20.7H, Anisocytosis Moderate, Band Neutrophils % 6, Basophilic Stippling Slight, Basophils # (Auto) , Basophils # (Manual) 0.0, Basophils % (Manual) 0, Basophils (%) (Auto) , Blood Morphology Comment See reference, Blood Urea Nitrogen 67H, Calcium Level 12.3H, Carbon Dioxide Level 27, Chloride Level 108, Creatinine 2.39H, Differential Total Cells Counted 100, Eosinophils # 0.0, Eosinophils # (Auto) , Eosinophils % (Manual) 0, Eosinophils (%) (Auto) , Estimat Glomerular Filtration Rate 31.8, Estimated GFR (Non- 26.2, Glucose Level 113H, Hematocrit 31.80L, Hemoglobin 9.9L, Lymphocytes # 0.5, Lymphocytes # (Auto ) , Lymphocytes % (Manual) 3L, Lymphocytes (%) (Auto) , Magnesium Level 1.8, Mean Corpuscular Hemoglobin 26.4, Mean Corpuscular Hemoglobin Concent 31.1, Mean Corpuscular Volume 85, Mean Platelet Volume 8.6, Metamyelocytes % 0, Monocytes # 0.7, Monocytes # (Auto) , Monocytes % (Manual) 4, Monocytes (%) ( Auto) , Neutrophils # 15.5, Neutrophils # (Auto) , Neutrophils (%) (Auto) , Phosphorus Level 5.4H, Platelet Count 308, Poikilocytosis Slight, Potassium Level 3.8, Red Blood Count 3.75L, Red Cell Distribution Width 20.0H, Segmented Neutrophils % 87H, Sodium Level 152H, White Blood Count 17.84H MICRO 07/26 Blood culture Negative to date 07/21 Blood culture Negative to date IMAGING 07/30/16 CT HEAD: PENDING 07/28/16 LUMBAR SPINE - 2-3 VIEWS INDICATION: Back pain after fall. Two views were obtained. FINDINGS: There is grade 2 spondylolisthesis of L5 on S1. There is moderate degenerative disc disease at L4-5. The vertebral body heights are relatively well-maintained. There is marked lower lumbar hypertrophic degenerative facet disease. IMPRESSION: Severe degenerative changes in lower lumbar spine most of which appear chronic. In light of the osteopenia, possibility of an occult or early compression fracture cannot be entirely excluded. Recommend clinical correlation and if warranted followup with MRI. 07/26/16 CHEST PA/LAT (2 VIEW)* INDICATION: Respiratory distress. COMPARISON: and CT chest from 01/26/2016. FINDINGS: The left midlung zone pulmonary nodule is similar. No new airspace disease. No pleural effusion or pneumothorax. Stable left-sided pleural thickening. Stable right jugular central venous catheter. Stable mild cardiomegaly with a tortuous aorta. IMPRESSION: 1. Stable left midlung zone pulmonary nodule and left-sided pleural thickening. 2. No definite new airspace disease or pleural effusion. 3. A followup CT chest should be considered for assessment of stability of the left pulmonary nodule as it appears larger than on the chest x-ray from 2015. 07/21/16 CHEST 1 VIEW, AP/PA ONLY* INDICATION: Elevated white blood cell count. COMPARISON: 03/27/2016. FINDINGS: A left lung nodule measuring 2.8 cm is present and is likely increased in size when compared to CT from January 2016. Air trapping and COPD chronic. No effusion or pneumothorax. IMPRESSION: Increasing size of left upper lobe lung mass laterally measuring at least 2.7 cm today, on earlier CT it was about 1.6 cm. COPD. No other change. 07/21/16 CHEST 1 VIEW, AP/PA ONLY* INDICATION: Central line placement Portable chest 9:41 PM Right jugular central line tip projects over the right innominate vein. There is a 2 cm pulmonary nodule left mid lateral lung as well as some pleural thickening in the left lower lateral chest adjacent to this. The right lung is clear. There is no effusion or pneumothorax. There appears to be some emphysematous change in the lungs. IMPRESSION: Pleural thickening and pulmonary nodule left lung unchanged from previous day. REFERENCE 03/28/2016 ECHO: Summary: LA enlargement. Concentric LVH. INtact LV systolic function with EF 65%. Calcified aortic valve with mean gradient 16 mmHg, consistent with mild to moderate ; mild AI. Mitral annular calcification, trace mitral insufficiency. Trace tricuspid insufficiency. Pulmonary hypertension with PA systolic pressure 51 mmHg (mild to moderate.) No pericardial effusion. ASSESSMENT Addy Fragoso is a 80 year old male admitted from home 07/24 with SIRS and probable sepsis though source on admit was uncertain. He met criteria on admit with HR > 90 and leukocytosis. He had acute on chronic hypoxic respiratory failure as well. He has underlying lung cancer with a primary pulmonary nodule in the left lung that has grown since prior CT scan 03/2016. He had marked anemia on admit. He has numerous chronic medical problems. Prior to this admit he had been on home hospice service but he revoked this. He has had prolonged hospitalization due to persistent respiratory distress, persistent leukocytosis (without definitive source of infection) and generalized deconditioning. PLAN * SIRS, probable sepsis: Source of infection uncertain. Leukocytosis improved since admit but then remained persistently elevated. Blood cultures negative to date. CXR less consistent with pneumonia. Got ceftriaxone and azithromycin empirically on admit. Escalated antibiotics because of persistent leukocytosis. * Leukocytosis: WBC 38.29 on admit, initially improved but then stagnant . Infectious? Reactive to anemia? Initial blood culture negative. Repeat blood culture negative. Since WBC not improving, escalated antibiotic 07/26 to pip- tazo and vanco. He then started showing slow improvement with WBC 17.84 07/30 and CRP dropping from peak 16.30 to 7.10. * Delirium, Encephalopathy: Getting worse. Multifactorial. Added low-dose quetiapine 07/29. Has not head imaging so check CT head 07/30 (because of history of lung cancer). * Acute on Chronic Hypoxic Respiratory Failure: Oxygen protocol. IS. * Iron Deficiency Anemia: Hgb on admit 6.2. Stool positive for occult blood. Got 2 units on admit. Additional 2 units 07/24. Transfuse for Hgb < 8. Iron supplement. * COPD with Acute Exacerbation: Acute exacerbation resolving. No apparent pneumonia on CXR. Could be bronchitis. Duoneb scheduled. Albuterol PRN. * FRANCISCO: Creatinine was 4.17 on admit, improving gradually, 2.21 07/25. Worse with diuresis started on 07/28, so furosemide was stopped. Monitor trend. * Non-Small Cell Lung Cancer: On the basis of biopsy 02/15. Has declined further workup or treatment for this. Had been on hospice for two weeks prior to this admit, but he has since revoked that. Nodule growing in size compared to CT scan from March 2016. For now, observe. * Back Pain: L-spine plain film as noted. Hydrocodone/acetaminophen, hydromorphone, lidoderm. PT/OT deferred because of pain, irritability. * Falls at Home: PT/OT deferred because of pain, irritability. * Pressure Ulcers: Stage 1 left buttock, stage 2 right buttock, present on admit. Due to him sitting in chair for long periods of time at home. Pressure relieving strategies. Mepilex. * Pedal Edema: JOHN kebede. Started furosemide 07/28 but stopped due to hypernatremia, FRANCISCO. * Hypernatremia: Aggravated by diuresis. Stopped furosemide. If worsening, give D5W. * Constipation: Bowel regimen. Scheduled dosing until constipation improves. * Deconditioning: He does not want to participate with PT/OT so this has not been ordered. * F/E/N: Soft diet. Stopped IVF 07/24. Right IJ central line. * Prophylaxis: SCDs * Code Status: DNR * Dispo: Inpatient. Had been on hospice prior to this admit but took himself off. Have had conversation with daughter regarding code status, DPOA-HC. At present, patient has some periods of confusion but has some limited capacity. Overall prognosis poor. Family meeting at 1830 07/26 and he wants to continue therapy but elected DNR. Will not be able to return home and is agreeable to placement at [facility] when appropriate. Uncertain end-points for this hospitalization but he is not well enough for discharge and has not consented to comfort care. Spoke with Pharmacy- he had 3 days of Zithromax, Roephin 3 days and now Vancomycin and Pip Tazo 9 days. No source of infection, cultures negative, CXR negative, May all be result of his cancer for elevated WBC. Will stop meds for now and discuss with family. Need a good plan for him. D/W social work. Spoke to daughter- they want him to go to [facility] tomorrow- will come today at 3:30 for family meeting regarding hospice. CHRONIC ISSUES * Gout: Off allopurinol. * Diabetes Mellitus Type II: A1C 5.8 on prior admit. Metformin on hold. Sliding scale. * HTN: Indapamide, losartan, metoprolol all on hold. * Prostate Cancer: S/P radiation. Observe. * Pulmonary Hypertension: Oxygen * GERD: pantoprazole Pt seen and examined, agree with above. Pt less responsive today but he had gotten dose of Dilaudid. Met with daughters and they are in agreement with pt needing placement. They don't want to make the decision for hospice so pt is asked if he is agreeable to using hospice again and he indicated yes by nodding. [facility] come to evaluate and he meets inpt criteria. Will admit him to hospice tomorrow. Kusum Pate APRN August 03, 2016 10:31 Rodrigo Nelson MD August 03, 2016 22:44
--- NOTE | 2016-08-03 11:15 | NUR ---
zosyn stopped due to being dc'd.
--- NOTE | 2016-08-03 11:26 | NUR ---
When asked if back pain better, patient nodded head yes. oral care given. when asked if mouth felt better patient nodded yes. Alert. Calm.
[2016-08-03] MEDS: VANCOMYCIN COMPOUNDED BY PHARMACY IV SCH (11:41)
[2016-08-03] MEDS ORDERED: VANCOMYCIN 1,000 MG in SODIUM CHLORIDE 250 ML IV SCH (12:00)
--- NOTE | 2016-08-03 13:57 | NUR ---
MILK OF MAG HELD. COUGHS WITH SIPS OF FLUIDS. VIPIN MOUTH SWAB WELL.
--- NOTE | 2016-08-03 14:46 | PROGRESS NOTE ---
DATE OF NOTE: 08/01/2016 SUBJECTIVE: The patient is awake, alert. He is feeling a little bit better. He still has a little bit of constipation issues, but no other new issues. OBJECTIVE: VITALS: Pulse 110, temperature 96.9, blood pressure 121/83. Saturations 93% on 4 liters of oxygen. GENERAL: He is awake and alert. He has been up to the chair. [place] a little constipated. Passing gas. HEENT: PERRLA, EOMI. Dry mucosa. CARDIOVASCULAR: Irregular S1, S2 without murmur. LUNGS: Somewhat diminished with subtle wheezes noted in the bases. ABDOMEN: Soft. Slight tenderness to palpation, but active bowel sounds. EXTREMITIES: Trace edema. Pulses are palpable and intact. INTEGUMENT: Age related changes. NEUROLOGIC: No focal neurological deficits seen. LABORATORY: So far at this time blood cultures show no growth. ASSESSMENT: The patient is an 80-year-old male who was admitted from home on 07/24/2016 with SIRS and probable sepsis. The source was uncertain. He does have acute on-chronic hypoxic respiratory failure underlining lung cancer with primary pulmonary nodule in the left lung that has grown since his prior CT done 03/21/2016. He has generalized deconditioning. He has persistent leukocytosis. He has had a prolonged hospitalization due to his persistent respiratory distress. PLAN: At this time he will remain inpatient. He has been on Hospice on the past, but he took himself off. We will need to have a discussion with his daughters when they are available. Overall, at this time, his prognosis remains poor. Family meeting on July 26 was done and he wanted to continue therapy, but elected at that time to be a DNR. It is not advisable at this time that he return home. He is agreeable to possibly [facility]. At this time we are uncertain about his discharge plans. He still complains of constipation. He will be given stool softeners. Will continue to evaluate and hope for a family meeting in the next day or so to discuss. He is still currently on antibiotic therapy, although at this time there has been no source of infection found. He does not appear to be a good candidate for any skilled care. Pt seen and examined, agree with above. FELICIA
--- NOTE | 2016-08-03 15:12 | NUR ---
DAUGHTER AT BEDSIDE.
--- NOTE | 2016-08-03 16:28 | NUR ---
Family meeting with daughters Seema and Siena along with Dr. Nelson and nurse practitioner Kusum. Dr. Nelson reviewed Pt. medical condition. Daughters feel hospice is appropriate for Pt. but want to discuss with him also. Daughters agree to have SW contact [facility] to come visit with them and assess Pt. Daughters and Dr. Nelson visit with Pt. about hospice and he is agreeable to this. Sydni with [facility] will be here this evening between 17:30 and 18:00 to visit with family. Daughters notified of this.
--- NOTE | 2016-08-03 17:01 | NUR ---
Incontinent of 2 small soft stools. Milk of mag held.
--- NOTE | 2016-08-03 17:57 | NUR ---
Sydni from hospice here to see family.
[2016-08-03] MEDS: HYDROmorphone 2 MG/ML (DILAUDID) 1 ML SYRINGE IV PRN (18:20)
[2016-08-03] MEDS ORDERED: LORazepam 2 MG/ML (ATIVAN) 1 ML VIAL IV PRN (18:21)
--- NOTE | 2016-08-03 18:25 | NUR ---
RESTLESS. WHEN ASKED IF BACK HURTS PATIENT NODS YES. PAIN MED WAS GIVEN.
[2016-08-03] MEDS: PATCH REMOVAL TOP SCH (20:27)
[2016-08-03] MEDS: QUEtiapine 25 MG (SEROquel) TAB IMMEDIATE RELEASE PO SCH (20:27)
[2016-08-04 03:41] VITALS: BP 115/75
[2016-08-04] MEDS: PANTOPRAZOLE 40 MG (PROTONIX) TAB PO SCH (06:25)
[2016-08-04] MEDS: HYDROmorphone 2 MG/ML (DILAUDID) 1 ML SYRINGE IV PRN (06:37)
--- NOTE | 2016-08-04 06:43 | NUR ---
Patient rests in bed throughout night. Incontinent of loose, black stools. Patient reports pain this AM, dilaudid given. No needs at this time.
[2016-08-04] MEDS: INSULIN LISPRO 1 UNIT/0.01 ML (HUMALOG) DOSE SC SCH (07:18)
[2016-08-04 07:46] VITALS: BP 100/86
[2016-08-04] MEDS: FERROUS SULFATE 325 MG (IRON) TABLET PO SCH (08:00)
[2016-08-04] MEDS: MAGNESIUM HYDROXIDE 80MG/ML (MILK OF MAGNESIA) 30 ML UDC PO SCH (08:09)
[2016-08-04] MEDS: POLYETHYLENE GLYCOL 17 GM (MIRALAX) PACKET PO SCH (08:09)
[2016-08-04] MEDS: DOCUSATE SODIUM 100 MG (COLACE) CAP PO SCH (08:09)
--- NOTE | 2016-08-04 08:10 | NUR ---
Oral meds non-admin. patient is not drinking at this time. chokes on sips of water. oral care only at this time.
--- NOTE | 2016-08-04 08:31 | Discharge Summary (E FT) ---
Discharge Summary (E FT) Admit Date Jul 21, 2016 at 17:38 Discharge Date August 04, 2016 Admitting Provider Shivam Arango DO Primary Care Provider James Ortega MD Attending Provider Shivam Arango DO Consulting Provider Hospital Course Summary HPI Patient was on hospice for 2 weeks and now has left hospice.He has end stage COPD; lung cancer currently untreated;and has not been eating or drinking for several days. He is quite anemic with a current hemoglobin of 6.2. He had a lengthy stay and overall remained poor prognosis. He completed 15 of antibiotics. His mentation continued to decline, He stated he wanted only pain meds and remained in pain despite all treatments here. Family meeting yesterday at 3:30 with both daughters, they want comfort measures and asked for Hospice to eval- they accepted inpt here. The daughters spoke to pt and he nodded yes to hospice and comfort measure Vital Signs Date Time Temp Pulse Resp B/P Pulse Ox O2 Delivery O2 Flow Rate FiO2 08/04/16 07:46 96.1 78 22 100/86 98 Nasal cannula 07/31/16 04:07 2.00 GEN: Resting in bed- weak and not verbally responsive. HEENT: EOMI, clear sclerae, very dry oral tongue.. CV: irregular, S1 S2 audible without significant murmur. PULM: Diminished bases. Some audible wheezing, left anterior lung field. ABD: Soft, diffusely and mildly tender to palpation. Active bowel sounds. EXTR: Pulses intact in DP bilaterally. Radial pulses intact. Trace BLE edema INTEG: Pallor. Age related changes. Stage 2 pressure ulcer right buttock. Stage 1 pressure ulcer left buttock NEURO: weak frail, not interactive much at all. nods periodically Weight: 76.6 kg (69.3 kg on admit) Lab-Past 14 Days, 35 Results 07/21/16 19:02: Absolute Band Neutrophils 4.6, Anion Gap 28.1H, Anisocytosis Slight, BUN/ Creatinine Ratio 47H, Band Neutrophils % 12H, Basophils # (Auto) , Basophils # ( Manual) 0.0, Basophils % (Manual) 0, Basophils (%) (Auto) , Blood Morphology Comment See reference, Blood Urea Nitrogen 210#H, Calcium Level 9.9, Carbon Dioxide Level 19L, Chloride Level 94L, Creatinine 4.43#*H, Differential Total Cells Counted 100, Eosinophils # 0.0, Eosinophils # (Auto) , Eosinophils % ( Manual) 0, Eosinophils (%) (Auto) , Estimat Glomerular Filtration Rate 15.6, Estimated GFR (Non- 12.9, Glucose Level 133H, Hematocrit 19.50#* L, Hemoglobin 6.2#*L, Lymphocytes # 1.2, Lymphocytes # (Auto) , Lymphocytes % ( Manual) 3L, Lymphocytes (%) (Auto) , Mean Corpuscular Hemoglobin 24.4L, Mean Corpuscular Hemoglobin Concent 31.8, Mean Corpuscular Volume 77L, Mean Platelet Volume 9.1, Metamyelocytes % 3H, Microcytosis Slight, Monocytes # 0.8, Monocytes # (Auto) , Monocytes % (Manual) 2L, Monocytes (%) (Auto) , Neutrophils # 30.6, Neutrophils # (Auto) , Neutrophils (%) (Auto) , Platelet Count 679#H, Polychromasia Slight, Potassium Level 3.4L, Red Blood Count 2.54L, Red Cell Distribution Width 18.9H, Schistocytes Slight, Segmented Neutrophils % 80H, Sodium Level 137, White Blood Count 38.29*H 07/21/16 21:00: C-Reactive Protein 3.10H, Lactic Acid Level 2.5H, AG-Ojb-[id number]-Type Natriuretic Peptide 763H 07/22/16 00:15: Urine Bacteria None seen, Urine Bilirubin Negative, Urine Blood Negative, Urine Clarity Clear, Urine Collection Type Clean catch, Urine Color Yellow, Urine Glucose (UA) Negative, Urine Hyaline Casts Rare, Urine Ketones Negative, Urine Leukocyte Esterase Negative, Urine Microscopic RBC 0-2, Urine Nitrite Negative, Urine Protein TraceH, Urine Renal Epithelial Cells 0-2, Urine Specific [place] 1.010, Urine Squamous Epithelial Cells 10-20, Urine Urobilinogen 0.2, Urine WBC 2-5, Urine pH 5.5, Volume Urine Centrifuged 12 ml 07/22/16 05:10: Absolute Band Neutrophils 0.8, Anion Gap 22.5H, Anisocytosis Marked, BUN/ Creatinine Ratio 45H, Band Neutrophils % 3, Basophils # (Auto) , Basophils (%) ( Auto) , Blood Morphology Comment See reference, Blood Urea Nitrogen 187H, Calcium Level 9.2, Carbon Dioxide Level 21L, Chloride Level 98, Creatinine 4.17* H, Differential Total Cells Counted 100, Eosinophils # (Auto) , Eosinophils (%) (Auto) , Estimat Glomerular Filtration Rate 16.7, Estimated GFR (Non- 13.8, Glucose Level 112H, Hematocrit 23.80L, Hemoglobin 7.8L, Lymphocytes # 1.4, Lymphocytes # (Auto) , Lymphocytes % (Manual) 5L, Lymphocytes (%) (Auto) , Mean Corpuscular Hemoglobin 25.4L, Mean Corpuscular Hemoglobin Concent 32.8, Mean Corpuscular Volume 78L, Mean Platelet Volume 8.8, Microcytosis Moderate, Monocytes # 2.2, Monocytes # (Auto) , Monocytes % (Manual ) 8, Monocytes (%) (Auto) , Neutrophils # 23.6, Neutrophils # (Auto) , Neutrophils (%) (Auto) , Platelet Count 543H, Polychromasia Slight, Potassium Level 2.9L, Red Blood Count 3.07L, Red Cell Distribution Width 19.1H, Segmented Neutrophils % 83H, Sodium Level 139, White Blood Count 28.47H, Acanthocytes Slight, Basophilic Stippling Moderate, Hypochromasia Slight, Myelocytes 1, Poikilocytosis Moderate, Smear Scan 07/22/16 12:20: Gastric Fluid Occult Blood PositiveH 07/23/16 08:15: Absolute Band Neutrophils 0.2, Anion Gap 16.5H, Anisocytosis Slight, BUN/ Creatinine Ratio 41H, Band Neutrophils % 1, Basophils # (Auto) , Basophils # ( Manual) 0.0, Basophils % (Manual) 0, Basophils (%) (Auto) , Blood Morphology Comment See reference, Blood Urea Nitrogen 148H, Calcium Level 9.7, Carbon Dioxide Level 25, Chloride Level 107, Creatinine 3.57H, Differential Total Cells Counted 100, Eosinophils # 0.0, Eosinophils # (Auto) , Eosinophils % ( Manual) 0, Eosinophils (%) (Auto) , Estimat Glomerular Filtration Rate 20.0, Estimated GFR (Non- 16.5, Glucose Level 123H, Hematocrit 22.70L , Hemoglobin 7.5L, Lymphocytes # 0.6, Lymphocytes # (Auto) , Lymphocytes % ( Manual) 3L, Lymphocytes (%) (Auto) , Mean Corpuscular Hemoglobin 25.9L, Mean Corpuscular Hemoglobin Concent 33.0, Mean Corpuscular Volume 78L, Mean Platelet Volume 8.4, Metamyelocytes % 2H, Microcytosis Slight, Monocytes # 1.6, Monocytes # (Auto) , Monocytes % (Manual) 8, Monocytes (%) (Auto) , Neutrophils # 18.0, Neutrophils # (Auto) , Neutrophils (%) (Auto) , Platelet Count 489H, Polychromasia Slight, Potassium Level 2.9L, Red Blood Count 2.90L, Red Cell Distribution Width 19.4H, Segmented Neutrophils % 86H, Sodium Level 146#, White Blood Count 20.93H 07/24/16 05:40: Absolute Band Neutrophils 0.4, Anion Gap 13.1, Anisocytosis Moderate, BUN/ Creatinine Ratio 40H, Band Neutrophils % 2, Basophils # (Auto) , Basophils # ( Manual) 0.0, Basophils % (Manual) 0, Basophils (%) (Auto) , Blood Morphology Comment See reference, Blood Urea Nitrogen 111H, Calcium Level 10.0, Carbon Dioxide Level 25, Chloride Level 110H, Creatinine 2.80H, Differential Total Cells Counted 100, Eosinophils # 0.0, Eosinophils # (Auto) , Eosinophils % ( Manual) 0, Eosinophils (%) (Auto) , Estimat Glomerular Filtration Rate 26.5, Estimated GFR (Non- 21.9, Glucose Level 129H, Hematocrit 21.70L , Hemoglobin 6.9*L, Lymphocytes # 0.4, Lymphocytes # (Auto) , Lymphocytes % ( Manual) 2L, Lymphocytes (%) (Auto) , Mean Corpuscular Hemoglobin 25.5L, Mean Corpuscular Hemoglobin Concent 31.8, Mean Corpuscular Volume 80, Mean Platelet Volume 8.1, Monocytes # 2.0, Monocytes # (Auto) , Monocytes % (Manual) 9, Monocytes (%) (Auto) , Neutrophils # 19.2, Neutrophils # (Auto) , Neutrophils (% ) (Auto) , Platelet Count 448, Potassium Level 3.7#, Red Blood Count 2.70L, Red Cell Distribution Width 19.7H, Segmented Neutrophils % 87H, Sodium Level 144, White Blood Count 22.07H 07/25/16 05:35: Absolute Band Neutrophils 0.0, Anion Gap 17.6H, Anisocytosis Slight, Band Neutrophils % 0, Basophils # (Auto) , Basophils # (Manual) 0.0, Basophils % ( Manual) 0, Basophils (%) (Auto) , Blood Morphology Comment See reference, Blood Urea Nitrogen 88H, Calcium Level 10.9H, Carbon Dioxide Level 24, Chloride Level 110H, Creatinine 2.21H, Differential Total Cells Counted 100, Eosinophils # 0.0 , Eosinophils # (Auto) , Eosinophils % (Manual) 0, Eosinophils (%) (Auto) , Estimat Glomerular Filtration Rate 34.8, Estimated GFR (Non- 28.7, Glucose Level 136H, Hematocrit 30.10L, Hemoglobin 9.7L, Lymphocytes # 0.7 , Lymphocytes # (Auto) , Lymphocytes % (Manual) 3L, Lymphocytes (%) (Auto) , Mean Corpuscular Hemoglobin 26.5, Mean Corpuscular Hemoglobin Concent 32.2, Mean Corpuscular Volume 82, Mean Platelet Volume 8.9, Metamyelocytes % 1, Monocytes # 3.1, Monocytes # (Auto) , Monocytes % (Manual) 14H, Monocytes (%) ( Auto) , Neutrophils # 18.8, Neutrophils # (Auto) , Neutrophils (%) (Auto) , Platelet Count 427, Potassium Level 3.9, Red Blood Count 3.66L, Red Cell Distribution Width 19.0H, Segmented Neutrophils % 82H, Sodium Level 148, White Blood Count 22.91H, Albumin 3.1#L, C-Reactive Protein 16.30H, Magnesium Level 2.0, Phosphorus Level 4.7#, Poikilocytosis Slight 07/26/16 05:30: Absolute Band Neutrophils 0.4, Albumin 3.4, Anion Gap 19.1H, Anisocytosis Slight , Band Neutrophils % 2, Basophils # (Auto) , Basophils # (Manual) 0.0, Basophils % (Manual) 0, Basophils (%) (Auto) , Blood Morphology Comment See reference, Blood Urea Nitrogen 77H, Calcium Level 11.3H, Carbon Dioxide Level 22 , Chloride Level 109H, Creatinine 2.11H, Differential Total Cells Counted 100, Eosinophils # 0.0, Eosinophils # (Auto) , Eosinophils % (Manual) 0, Eosinophils (%) (Auto) , Estimat Glomerular Filtration Rate 36.7, Estimated GFR (Non- 30.3, Glucose Level 123H, Hematocrit 31.30L, Hemoglobin 9.9L, Lymphocytes # 1.3, Lymphocytes # (Auto) , Lymphocytes % (Manual) 6L, Lymphocytes (%) (Auto) , Mean Corpuscular Hemoglobin 26.0, Mean Corpuscular Hemoglobin Concent 31.6, Mean Corpuscular Volume 82, Mean Platelet Volume 9.0, Metamyelocytes % 0, Monocytes # 2.1, Monocytes # (Auto) , Monocytes % (Manual) 10, Monocytes (%) (Auto) , Neutrophils # 18.0, Neutrophils # (Auto) , Neutrophils (%) (Auto) , Phosphorus Level 4.5, Platelet Count 462H, Poikilocytosis Slight, Potassium Level 3.9, Red Blood Count 3.81L, Red Cell Distribution Width 19.6H, Segmented Neutrophils % 82H, Sodium Level 147, White Blood Count 21.95H 07/27/16 06:10: Albumin 3.5, Anion Gap 19.3H, Anisocytosis Moderate, Basophils # (Auto) , Basophils (%) (Auto) , Blood Morphology Comment See reference, Blood Urea Nitrogen 78H, Calcium Level 11.6H, Carbon Dioxide Level 24, Chloride Level 109H , Creatinine 2.15H, Differential Total Cells Counted 100, Eosinophils # (Auto) , Eosinophils (%) (Auto) , Estimat Glomerular Filtration Rate 35.9, Estimated GFR (Non- 29.7, Glucose Level 112H, Hematocrit 32.00L, Hemoglobin 10.2L, Lymphocytes # 0.5, Lymphocytes # (Auto) , Lymphocytes % ( Manual) 2L, Lymphocytes (%) (Auto) , Mean Corpuscular Hemoglobin 26.5, Mean Corpuscular Hemoglobin Concent 31.9, Mean Corpuscular Volume 83, Mean Platelet Volume 8.7, Monocytes # 1.1, Monocytes # (Auto) , Monocytes % (Manual) 5, Monocytes (%) (Auto) , Neutrophils # 20.8, Neutrophils # (Auto) , Neutrophils (% ) (Auto) , Phosphorus Level 5.4H, Platelet Count 482H, Poikilocytosis Slight, Potassium Level 4.1, Red Blood Count 3.85L, Red Cell Distribution Width 19.5H, Segmented Neutrophils % 93H, Sodium Level 148, White Blood Count 22.36H, Basophilic Stippling Slight, C-Reactive Protein 12.80H, Hypochromasia Slight, Microcytosis Slight 07/29/16 05:25: Absolute Band Neutrophils 0.2, Albumin 3.3L, Anion Gap 18.2H, Anisocytosis Moderate, Band Neutrophils % 1, Basophils # (Auto) , Basophils # (Manual) 0.0, Basophils % (Manual) 0, Basophils (%) (Auto) , Blood Morphology Comment See reference, Blood Urea Nitrogen 63H, Calcium Level 12.1H, Carbon Dioxide Level 26 , Chloride Level 110H, Creatinine 2.18H, Differential Total Cells Counted 100, Eosinophils # 0.0, Eosinophils # (Auto) , Eosinophils % (Manual) 0, Eosinophils (%) (Auto) , Estimat Glomerular Filtration Rate 35.3, Estimated GFR (Non- 29.2, Glucose Level 112H, Hematocrit 31.50L, Hemoglobin 9.7L, Lymphocytes # 1.2, Lymphocytes # (Auto) , Lymphocytes % (Manual) 6L, Lymphocytes (%) (Auto) , Mean Corpuscular Hemoglobin 26.1, Mean Corpuscular Hemoglobin Concent 30.8L, Mean Corpuscular Volume 85, Mean Platelet Volume 8.6, Metamyelocytes % 0, Monocytes # 1.7, Monocytes # (Auto) , Monocytes % (Manual) 9 , Monocytes (%) (Auto) , Neutrophils # 16.3, Neutrophils # (Auto) , Neutrophils (%) (Auto) , Phosphorus Level 5.7H, Platelet Count 394, Poikilocytosis Slight, Potassium Level 4.0, Red Blood Count 3.71L, Red Cell Distribution Width 20.1H, Segmented Neutrophils % 84H, Sodium Level 151H, White Blood Count 19.37H, Basophilic Stippling Slight, C-Reactive Protein 7.10H, Microcytosis Slight, Magnesium Level 1.8, EO-Lgr-I-Type Natriuretic Peptide 2980H 07/29/16 10:30: Vancomycin Level Trough 11.2 07/30/16 05:40: Absolute Band Neutrophils 1.0, Albumin 3.2L, Anion Gap 20.7H, Anisocytosis Moderate, Band Neutrophils % 6, Basophilic Stippling Slight, Basophils # (Auto) , Basophils # (Manual) 0.0, Basophils % (Manual) 0, Basophils (%) (Auto) , Blood Morphology Comment See reference, Blood Urea Nitrogen 67H, Calcium Level 12.3H, Carbon Dioxide Level 27, Chloride Level 108, Creatinine 2.39H, Differential Total Cells Counted 100, Eosinophils # 0.0, Eosinophils # (Auto) , Eosinophils % (Manual) 0, Eosinophils (%) (Auto) , Estimat Glomerular Filtration Rate 31.8, Estimated GFR (Non- 26.2, Glucose Level 113H, Hematocrit 31.80L, Hemoglobin 9.9L, Lymphocytes # 0.5, Lymphocytes # (Auto ) , Lymphocytes % (Manual) 3L, Lymphocytes (%) (Auto) , Magnesium Level 1.8, Mean Corpuscular Hemoglobin 26.4, Mean Corpuscular Hemoglobin Concent 31.1, Mean Corpuscular Volume 85, Mean Platelet Volume 8.6, Metamyelocytes % 0, Monocytes # 0.7, Monocytes # (Auto) , Monocytes % (Manual) 4, Monocytes (%) ( Auto) , Neutrophils # 15.5, Neutrophils # (Auto) , Neutrophils (%) (Auto) , Phosphorus Level 5.4H, Platelet Count 308, Poikilocytosis Slight, Potassium Level 3.8, Red Blood Count 3.75L, Red Cell Distribution Width 20.0H, Segmented Neutrophils % 87H, Sodium Level 152H, White Blood Count 17.84H MICRO 07/26 Blood culture Negative to date 07/21 Blood culture Negative to date IMAGING 07/30/16 CT HEAD: PENDING 07/28/16 LUMBAR SPINE - 2-3 VIEWS INDICATION: Back pain after fall. Two views were obtained. FINDINGS: There is grade 2 spondylolisthesis of L5 on S1. There is moderate degenerative disc disease at L4-5. The vertebral body heights are relatively well-maintained. There is marked lower lumbar hypertrophic degenerative facet disease. IMPRESSION: Severe degenerative changes in lower lumbar spine most of which appear chronic. In light of the osteopenia, possibility of an occult or early compression fracture cannot be entirely excluded. Recommend clinical correlation and if warranted followup with MRI. 07/26/16 CHEST PA/LAT (2 VIEW)* INDICATION: Respiratory distress. COMPARISON: and CT chest from 01/26/2016. FINDINGS: The left midlung zone pulmonary nodule is similar. No new airspace disease. No pleural effusion or pneumothorax. Stable left-sided pleural thickening. Stable right jugular central venous catheter. Stable mild cardiomegaly with a tortuous aorta. IMPRESSION: 1. Stable left midlung zone pulmonary nodule and left-sided pleural thickening. 2. No definite new airspace disease or pleural effusion. 3. A followup CT chest should be considered for assessment of stability of the left pulmonary nodule as it appears larger than on the chest x-ray from 2015. 07/21/16 CHEST 1 VIEW, AP/PA ONLY* INDICATION: Elevated white blood cell count. COMPARISON: 03/27/2016. FINDINGS: A left lung nodule measuring 2.8 cm is present and is likely increased in size when compared to CT from January 2016. Air trapping and COPD chronic. No effusion or pneumothorax. IMPRESSION: Increasing size of left upper lobe lung mass laterally measuring at least 2.7 cm today, on earlier CT it was about 1.6 cm. COPD. No other change. 07/21/16 CHEST 1 VIEW, AP/PA ONLY* INDICATION: Central line placement Portable chest 9:41 PM Right jugular central line tip projects over the right innominate vein. There is a 2 cm pulmonary nodule left mid lateral lung as well as some pleural thickening in the left lower lateral chest adjacent to this. The right lung is clear. There is no effusion or pneumothorax. There appears to be some emphysematous change in the lungs. IMPRESSION: Pleural thickening and pulmonary nodule left lung unchanged from previous day. REFERENCE 03/28/2016 ECHO: Summary: LA enlargement. Concentric LVH. INtact LV systolic function with EF 65%. Calcified aortic valve with mean gradient 16 mmHg, consistent with mild to moderate ; mild AI. Mitral annular calcification, trace mitral insufficiency. Trace tricuspid insufficiency. Pulmonary hypertension with PA systolic pressure 51 mmHg (mild to moderate.) No pericardial effusion. ASSESSMENT Addy Fragoso is a 80 year old male admitted from home 07/24 with SIRS and probable sepsis though source on admit was uncertain. He met criteria on admit with HR > 90 and leukocytosis. He had acute on chronic hypoxic respiratory failure as well. He has underlying lung cancer with a primary pulmonary nodule in the left lung that has grown since prior CT scan 03/2016. He had marked anemia on admit. He has numerous chronic medical problems. Prior to this admit he had been on home hospice service but he revoked this. He has had prolonged hospitalization due to persistent respiratory distress, persistent leukocytosis (without definitive source of infection) and generalized deconditioning. PLAN * SIRS, probable sepsis: Source of infection uncertain. Leukocytosis improved since admit but then remained persistently elevated. Blood cultures negative to date. CXR less consistent with pneumonia. Got ceftriaxone and azithromycin empirically on admit. Escalated antibiotics because of persistent leukocytosis.Completed 15 days of meds. * Leukocytosis: WBC 38.29 on admit, initially improved but then stagnant . Infectious? Reactive to anemia? Initial blood culture negative. Repeat blood culture negative. Since WBC not improving, escalated antibiotic 07/26 to pip- tazo and vanco. He then started showing slow improvement with WBC 17.84 07/30 and CRP dropping from peak 16.30 to 7.10. * Delirium, Encephalopathy: Getting worse. Multifactorial. Added low-dose quetiapine 07/29. Has not head imaging so check CT head 07/30 (because of history of lung cancer). * Acute on Chronic Hypoxic Respiratory Failure: Oxygen protocol. IS. * Iron Deficiency Anemia: Hgb on admit 6.2. Stool positive for occult blood. Got 2 units on admit. Additional 2 units 07/24. Transfuse for Hgb < 8. Iron supplement. * COPD with Acute Exacerbation: Acute exacerbation resolving. No apparent pneumonia on CXR. Could be bronchitis. Duoneb scheduled. Albuterol PRN. * FRANCISCO: Creatinine was 4.17 on admit, improving gradually, 2.21 07/25. Worse with diuresis started on 07/28, so furosemide was stopped. * Non-Small Cell Lung Cancer: On the basis of biopsy 02/15. Has declined further workup or treatment for this. Had been on hospice for two weeks prior to this admit, but he has since revoked that. Nodule growing in size compared to CT scan from March 2016. * Back Pain: * Falls at Home: PT/OT deferred because of pain, irritability. * Pressure Ulcers: Stage 1 left buttock, stage 2 right buttock, present on admit. Due to him sitting in chair for long periods of time at home. Pressure relieving strategies. Mepilex. * Pedal Edema: JOHN kebede * Hypernatremia: * Constipation: Bowel regimen. Scheduled dosing until constipation improves. * Deconditioning: He does not want to participate with PT/OT and not able to do so. * Code Status: DNR * Dispo: Pt had been on Hopsice in past and now daughters and he agree to hospice. [facility] has assessed and accepted him to inpt hospice here at [place]. CHRONIC ISSUES * Gout: Off allopurinol. * Diabetes Mellitus Type II: A1C 5.8 on prior admit. Metformin on hold. Sliding scale. * HTN: Indapamide, losartan, metoprolol all on hold. * Prostate Cancer: S/P radiation. Observe. * Pulmonary Hypertension: Oxygen * GERD: pantoprazole Pt has steadily deteriorated over the past week. WBC have remained high despite broad-spectrum abx. Family meeting 08/03 and family in agreement that Hospice is appropriate at this time. Pt is in agreement as well. Will follow him as inpt hospice. AH Discharge Disposition Inpt hospice [facility] Continued Medications: Hydrocodone Bit/Acetaminophen (Hydrocodon-Acetaminophen 5-325) 1 Each Tablet 1 EACH PO NEEDED PRN PAIN Ref 0 TAB Hyoscyamine Sulfate (Hyoscyamine Sulfate) 0.125 Mg Tab.subl 0.125 MG SL Q3HR PRN ABDOMINAL PAIN TAB Morphine Sulfate (Morphine Oral Concentrate 20mg/ml) 20 Mg/1 Ml Oral.conc 5-20 MG PO Q1HR Pain SYR Promethazine HCl (Promethazine HCl) 25 Mg Tablet 25 MG PO QID PRN NAUSEA/VOMITING TAB Discontinued Medications: Loperamide HCl (Loperamide) 2 Mg Capsule 2 MG PO UD AD CAP Lorazepam (Lorazepam) 0.5 Mg Tablet 0.5 MG PO Q1HR PRN ANXIETY Ref 0 TAB Copies to: End of Report . Kusum Quiroga APRN August 04, 2016 08:31 Rodrigo Nelson MD August 04, 2016 11:36
--- NOTE | 2016-08-04 09:51 | NUR ---
Dismissed to hospice
== END 2016-08-04 08:35 | disposition hospice, inpatient (51) | DRG 871 ==
LOC: MED/SURG 17:38
PROC: 05H333Z Insertion of Infusion Device into Right Innominate Vein, Percutaneous Approach (ICD-10-PCS; principal; 2016-07-21)
DX: A41.9 Sepsis, unspecified organism (principal); J96.21 Acute and chronic respiratory failure with hypoxia; N17.9 Acute kidney failure, unspecified; Z66 Do not resuscitate; Z51.5 Encounter for palliative care; C34.32 Malignant neoplasm of lower lobe, left bronchus or lung; J44.1 Chronic obstructive pulmonary disease with (acute) exacerbation; F05 Delirium due to known physiological condition; E87.0 Hyperosmolality and hypernatremia; D50.9 Iron deficiency anemia, unspecified; I27.2 Other secondary pulmonary hypertension; L89.321 Pressure ulcer of left buttock, stage 1; L89.312 Pressure ulcer of right buttock, stage 2; Z91.81 History of falling; Z85.46 Personal history of malignant neoplasm of prostate; Z92.3 Personal history of irradiation
CPT/HCPCS: 36415; 36430; 70450; 71010; 71020; 72100; 74022; 80048; 80069; 80202; 81003; 81015; 82271; 83605; 83735; 83880; 85025; 86140; 86850; 86900; 86901; 86920; 87040; 93005; 94640; 94760

== ENCOUNTER → 2016-07-21 | Outpatient (CLI) | payer MEDICARE, OTHER | LOC: EMS 17:33 | DX: R53.1 Weakness (principal); R06.00 Dyspnea, unspecified ==

== ENCOUNTER 2016-08-04 08:35 | Inpatient (IN) | payer OTHER, MEDICARE ==
[~2016-08-04 08:35] MED LIST changes: +HYDR-3702 PO; +HYOS0.1218 SL; +LOPE2CAP PO; +LORA0.5T PO; +MORP20SO PO; +PROM25TA14 PO
--- OUTSIDE RECORDS SUMMARY | 2016-08-04 08:48 | XMS REPORT | Continuity of Care Document ---
Author Author [facility] Address Unknown Phone Unavailable Care Team Providers Care Manager Audio Name Role Phone James Ortega MD PCP [phone] Insurance Providers Payer Name Policy Number Subscriber Name Relationship Medicare A And B [id number] Addy Jalloh 18 Self / Same As Patient [employer] [id number] Addy Jalloh 18 Self / Same As Patient Advance Directives Directive Response Recorded Date/Time Advanced Directives Yes 07/21/16 6:36pm Type Living Will 07/21/16 6:36pm Other oralia and reynaldo, daughters dpoa 07/21/16 6:36pm Chief Complaint and Reason for Visit Chief Complaint DEHYDRATION,ADENOCARCENOMA,END STAGE COPD Reason for Visit Weakness Problems Active Problems Medical Problem Onset Date Status Acute and chronic respiratory failure Unknown Acute Acute and chronic respiratory failure with hypoxia Unknown Acute Acute respiratory failure Unknown Acute Acute respiratory failure with hypoxia 12/25/2013 Acute COPD (chronic obstructive pulmonary disease) 12/29/2013 Acute COPD (chronic obstructive pulmonary disease) Unknown Acute COPD with acute exacerbation Unknown Acute Carpal tunnel syndrome 01/28/2013 Acute Chronic kidney disease (CKD) Unknown Acute Chronic obstructive airway disease Unknown Chronic Community acquired pneumonia 12/29/2013 Acute Constipation Unknown Acute Debility Unknown Acute Dehydration Unknown Acute Dyspnea Unknown Acute Edema Unknown Acute Fluid overload Unknown Acute Fluid retention Unknown Acute Gout Unknown Acute HCAP (healthcare-associated pneumonia) Unknown Acute HCAP (healthcare-associated pneumonia) Unknown Acute HCAP (healthcare-associated pneumonia) Unknown Acute HTN (hypertension) Unknown Acute Hyperkalemia Unknown Acute Hypertension Unknown Chronic Hypokalemia Unknown Acute Iron deficiency anemia Unknown Acute Lesion of lung Unknown Acute Leukocytosis Unknown Acute Physical deconditioning Unknown Acute Physical deconditioning Unknown Acute Pneumonia ~03/24/2016 Acute Pneumothorax after biopsy Unknown Acute Pneumothorax after biopsy Unknown Acute SIRS (systemic inflammatory response syndrome) Unknown Acute SIRS (systemic inflammatory response syndrome) Unknown Acute SIRS (systemic inflammatory response syndrome) Unknown Acute Sepsis Unknown Acute Sepsis Unknown Acute Upper respiratory infection Unknown Acute Weakness Unknown Acute Medications Current Home Medications Medication Dose Units Route Directions Days/Qty Instructions Start Date Morphine Sulfate (Roxanol Oral Concentrate 20MG/Ml) 20 Mg/1 Ml 5-20 Mg ORAL Every Hour for Pain 07/21/16 Hyoscyamine Sulfate 0.125 Mg 0.125 Mg SUBLINGUAL Every Three Hours as needed for Abdominal Pain 07/21/16 Promethazine Hcl 25 Mg 25 Mg ORAL Four Times Daily as needed for Nausea/ Vomiting 07/21/16 Hydrocodone Bit/Acetaminophen 1 Each 1 Each ORAL As Needed as needed for Pain 07/21/16 Past Home Medications Medication Directions Ordered Status Allopurinol 100 Mg Tablet, 100 Mg Oral Twice A Day 01/28/13 Discontinued Olmesartan/Hydrochlorothiazide 1 Each Tablet, 1 Each Oral Daily 01/28/13 Discontinued Hydrocodone Bit/Homatropine 5 Ml Syrup, 5 Ml Oral As Needed 01/28/13 Discontinued Ibuprofen (Motrin) 400 Mg Tablet, 400 Mg Oral As Needed 01/28/13 Discontinued Aspirin 81 Mg Tablet.dr, 81 Mg Oral Daily 12/25/13 Discontinued Albuterol/Ipratropium 3 Ml Nebu, 3 Ml Respiratory (Inhalation) Every 6 Hours as needed for Wheezing 12/29/13 Discontinued Arformoterol Tartrate 15 Mcg/2 Ml Vial.neb, 15 Mcg Respiratory (Inhalation) Every 12 Hours 12/29/13 Discontinued Budesonide 0.5 Mg/2 Ml Ampul.neb, 0.5 Mg Respiratory (Inhalation) Every 12 Hours 12/29/13 Discontinued Albuterol/Ipratropium 3 Ml Nebu, 3 Ml Respiratory (Inhalation) Every 6 Hours as needed for Wheezing 12/29/13 Discontinued Arformoterol Tartrate 15 Mcg/2 Ml Vial.neb, 15 Mcg Respiratory (Inhalation) Every 12 Hours 12/29/13 Discontinued Budesonide 0.5 Mg/2 Ml Ampul.neb, 0.5 Mg Respiratory (Inhalation) Every 12 Hours 12/29/13 Discontinued Olmesartan Medoxomil 40 Mg Tablet, 40 Mg Oral Daily 04/15/15 Discontinued Metformin Hcl (Glucophage Xr) 500 Mg Tab.er.24h, 1000 Mg Oral Twice A Day Discontinued Indapamide 1.25 Mg Tablet, 1.25 Mg Oral Daily 04/15/15 Discontinued Levofloxacin 500 Mg Tablet, 1 Tab Oral Daily 04/15/15 Discontinued Methylprednisolone 21 Tab/Pkt Tablet, 21 Tab Oral As Directed 04/15/15 Discontinued Ferrous Sulfate 325 Mg Tablet, 325 Mg Oral Twice A Day 08/24/15 Discontinued Albuterol Sulfate 2.5 Mg/3 Ml Nebu, 2.5 Mg Respiratory (Inhalation) Four Times Daily 08/24/15 Discontinued Cefdinir (Omnicef) 300 Mg Capsule, 300 Mg Oral Twice A Day 08/26/15 Discontinued Cyanocobalamin (Vitamin B-12) 1,000 Mcg Tablet, 2000 Mcg Oral Daily 12/04/15 Discontinued Doxycycline Hyclate 100 Mg Tablet, 100 Mg Oral Twice A Day 12/07/15 Discontinued Albuterol/Ipratropium 3 Ml Nebu, 3 Ml Respiratory (Inhalation) Four Times Daily 12/07/15 Discontinued Albuterol 2.5 Mg/0.5 Ml Nebu, 2.5 Mg Respiratory (Inhalation) Respiratory Every Four Hours as needed for Dyspnea 12/07/15 Discontinued Tramadol Hcl (Ultram) 50 Mg Tablet, 50 Mg Oral Every 6 Hours as needed for Pain 12/07/15 Discontinued Acetaminophen (Tylenol) 325 Mg Tablet, 650 Mg Oral Every 6 Hours as needed for Pain 12/07/15 Discontinued Guaifenesin 600 Mg Tab, 1200 Mg Oral Twice A Day 12/07/15 Discontinued Calcium Carbonate 300 Mg Tab.chew, 300 Mg Oral Every 8HRS as needed for Dyspepsia 12/07/15 Discontinued Mag Hydrox/Al Hydrox/Simeth 30 Ml Oral.susp, 30 Ml Oral Every 6 Hours as needed for Dyspepsia 12/07/15 Discontinued Ondansetron Hcl 4 Mg Tab.rapdis, 4 Mg Oral Every 6 Hr On Schedule as needed for Nausea/Vomiting 12/07/15 Discontinued Cefdinir (Omnicef) 300 Mg Capsule, 300 Mg Oral Twice A Day 12/07/15 Discontinued Furosemide 40 Mg Tablet, 40 Mg Oral Daily 12/07/15 Discontinued Potassium Chloride 10 Meq Capsule.er, 10 Meq Oral Daily 12/07/15 Discontinued Ferrous Sulfate 300 Mg/5 Ml Liquid, 600 Mg Oral Twice A Day 12/07/15 Discontinued Polyethylene Glycol 3350 17 Gm Powd.pack, 17 Gm Oral Daily 12/07/15 Discontinued Docusate Sodium 100 Mg Tablet, 100 Mg Oral Twice A Day as needed for Constipation 12/07/15 Discontinued Potassium Chloride 10 Meq Capsule.er, 10 Meq Oral Twice A Day With Meals 08/15 Discontinued Tramadol Hcl (Ultram) 50 Mg Tablet, 50 Mg Oral Every 6 Hours as needed for Pain 01/07/16 Discontinued Magnesium Hydroxide 400 Mg/5 Ml Oral.susp, 30 Ml Oral Daily as needed for Constipation 01/07/16 Discontinued Prednisone 20 Mg Tab, 60 Mg Oral Daily@0800 01/07/16 Discontinued Levofloxacin 750 Mg Tablet, 750 Mg Oral Daily 01/07/16 Discontinued Ferrous Sulfate 325 Mg Tablet.dr, 325 Mg Oral Twice A Day 01/08/16 Discontinued Potassium Chloride 20 Meq Tab.er.prt, 20 Meq Oral Daily 02/17/16 Discontinued Magnesium Oxide 400 Mg Tablet, 400 Mg Oral Daily for Vitamin/Mineral Supplemnt 02/17/16 Discontinued Ascorbic Acid 500 Mg Tablet, 500 Mg Oral Twice A Day 02/17/16 Discontinued Tramadol Hcl (Ultram) 50 Mg Tablet, 50 Mg Oral Every 6 Hours as needed for Pain 03/07/16 Discontinued Metoprolol Succinate 50 Mg Tab, 50 Mg Oral Daily 03/07/16 Discontinued Furosemide 20 Mg Tab, 60 Mg Oral Daily 03/07/16 Discontinued Furosemide 20 Mg Tablet, 20 Mg Oral Daily 03/24/16 Discontinued Albuterol/Ipratropium 3 Ml Nebu, 3 Ml Respiratory (Inhalation) Four Times Daily 03/31/16 Discontinued Albuterol 2.5 Mg/0.5 Ml Nebu, 2.5 Mg Respiratory (Inhalation) Every 4HRS as needed for Dyspnea 03/31/16 Discontinued Potassium Chloride 20 Meq Tab.er.prt, 20 Meq Oral Daily 03/31/16 Discontinued Amoxicillin/Clavulanate Potassium 1 Each Tablet, 1 Each Oral Twice A Day Discontinued Furosemide 40 Mg Tablet, 40 Mg Oral Bid@0900,1400 03/31/16 Discontinued Lorazepam 0.5 Mg Tablet, 0.5 Mg Oral Every Hour as needed for Anxiety Discontinued Loperamide Hcl 2 Mg Capsule, 2 Mg Oral As Directed for Ad 07/21/16 Discontinued Social History Social History Problem Response Recorded Date/Time Onset Date Status Exposure to occupational hazards No 07/21/2016 6:36pm Query Response Start Date Stop Date Smoking Status Former smoker Hospital Discharge Instructions Patient's Instructions Instructions Plan of Care Discharge Date 08/04/16 8:35am Disposition DIS/TRANS HOSPICE FACILITY Prescriptions See Medication Section Care Plan and Goals See Discharge Instructions Section Functional Status Query Response Date Recorded Level of Conscious Alert Disoriented / Confused August 04, 2016 7:50am Movement Moves extremities Weakness 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 Immunizations Name Given Type Status Date Pneumonia Vaccine Received if Current 05/30/13 Historical Historical Date Influenza Vaccine Received if Current 01/20/15 Historical Historical Vital Signs Acute Vital Signs Vital Response Date/Time Temperature (Fahrenheit) 96.1 08/04/2016 7:46am Pulse 78 bpm 08/04/2016 7:46am Respirations 22 08/04/2016 7:46am Height 5 ft 10 in Weight 161 lb Body Mass Index 23.0 kg/m^2 Results Pending Laboratory Results Test Name Collection Date/Time Pending Microbiology Results Procedure Source Collection Date/Time Procedures No known history of procedures. Encounters Encounter Location Arrival/Admit Date Discharge/Depart Date Attending Provider Discharged Inpatient [facility] 07/21/16 5:38pm 08/04/16 8:35am BRIAN FUENTES DO Registered [facility] 07/21/16 5:33pm BRIAN FUENTES DO Registered [facility] 07/20/16 2:50am UNKNOWN Registered Clinic [facility] 07/18/16 6:45am UNKNOWN Recent Diagnosis Weakness
[2016-08-04] MEDS ORDERED: PROMETHAZINE HCL INJ 12.5 MG in SODIUM CHLORIDE 25 ML IV PRN (08:50)
[2016-08-04] MEDS ORDERED: SODIUM CHLORIDE 250 ML IV PRN (08:50)
[2016-08-04] MEDS ORDERED: ONDANSETRON 2 MG/ML (Z0FRAN) 2 ML VIAL IV PRN (08:50)
[2016-08-04] MEDS ORDERED: SODIUM CHLORIDE FLUSH 10 ML SYR IV SCH (08:50)
[2016-08-04] MEDS ORDERED: LORazepam 2 MG/ML (ATIVAN) 1 ML VIAL IV PRN (08:50)
--- NOTE | 2016-08-04 09:06 | History and Physical (E) ---
History & Physical CC: Dyspnea, chronic pain PCP: Dr Jordan BALES Addy Fragoso is a 80 year old male well known to the hospitalist service. Was admitted 07/21 inpatient from home. Had been on hospice but was doing poorly at home. Staff were recommending NH placement. PCP came to patient's home to evaluate and after discussion there, patient apparently asked for treatment so hospice was revoked and he was admitted for full inpatient care. He had Anemia treated with blood transfusion x 2 units, WBC was markedly elevated on admit 38.29 with 12% bands. Hgb quite low at 6.2. Got azithromycin and ceftriaxone . He completed 15 days of antibiotics.Patient is not very communicative but stirs to exam. Complains of aching all over. Denies chest pain. Denies cough or feeling fevered. Endorses dyspnea and noted he is on 4 L oxygen. Daughter is present. Due to decline,family meeting was held and he and daughters wish for Hospice and has been accepted to [facility] per [facility]. PMH * Non-small cell lung cancer, 02/2016 * Pneumothorax 02/2016 * HCAP 02/2016 * COPD * Pneumonia in January 2016 * Lung Mass * HTN * Gout * Prostate cancer, s/p radiation. * Diabetes Mellitus PSH * Lung biopsy 02/2016 * Chest tube 02/2016 * Right carpal tunnel surgery * Forehead and eyelid surgery about 10 years ago * Colonoscopy in summer ALLERGIES: Please see list at end of report. HOME MEDICATIONS: Please see list at end of report. FH Parents--Father had DM and prostate cancer. Mother had cardiac disease. Siblings--Sister had breast cancer. Children--One son of an aortic aneurysm. SH Tobacco--Long smoking history. 1-2 ppd history for about 40 years. Stopped 4 years ago. Alcohol--Denies Living situation--Had been living at home alone but had been at [facility] recently for fdc after his admission in December for pneumonia. He was using home health aide for medication administration until this summer. 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 ROS CONSTITUTION: Weight gain. HEENT: No change in vision or hearing. No sore throat. CV: No chest pain. PULM: Per HPI, exam. GI: No upset stomach, nausea, vomiting, constipation, or diarrhea. No blood in stool. : No dysuria. No blood in urine. MS: Chronic pain NEURO: less alert, nods to questions INTEG: No new rash. OBJECTIVE Vitals now prn GEN: Resting eyes closed, will nod at times, non verbal resting well now HEENT: EOMI CV: Tachy, regular, II/ systolic murmur. LUNGS: Quite diminished throughout. ABD: Soft, NT/ND with normal bowel sounds. EXTR: BLE edema noted INTEG: Venous stasis dermatitis. Warm, dry, well-perfused. NEURO:Weak non verbal. ASSESSMENT Addy Fragoso is a 80 year old male with multiple medical problems including non small cell lung cancer , COPD, deconditioning Prostate cancer, who had an acute admission on July 21, 2016 for leukocytosis. Extensive workup done and he completed 15 days of antibiotics without any improved in his condition- he continued to show decline and overall prognosis was poor. Family meeting held with his daughters who agreed to hospice eval and this was done. He was accepted to inpatient hospice by [facility] on 08-04-16. He agreed to that as well. * Acute on Chronic Respiratory Failure * COPD with acute exacerbation * Pulmonary Edema * BLE Edema * Deconditioning * Non-Small Cell Lung Cancer * Gout * Diabetes Mellitus Type II: * HTN * Prostate Cancer * Constipation * Iron Deficiency Anemia: * PLAN: Inpatient hospice per [facility]- orders placed- supportive care given * DNR Pt seen and examined, agree with above. Not as responsive today. Family is present. Will continue to follow on in hospice. AH Allergies/Home Medications Allergies: Coded Allergies: No Known Drug Allergies (Unverified , 03/24/16) Reported Home Medications Scheduled Morphine Sulfate (Morphine Oral Concentrate 20mg/ml) 5-20 MG PO Q1HR (Reported) Scheduled PRN Hydrocodone Bit/Acetaminophen (Hydrocodon-Acetaminophen 5-325) 1 EACH PO NEEDED PRN PRN PAIN (Reported) Hyoscyamine Sulfate (Hyoscyamine Sulfate) 0.125 MG SL Q3HR PRN PRN ABDOMINAL PAIN (Reported) Promethazine HCl (Promethazine HCl) 25 MG PO QID PRN PRN NAUSEA/VOMITING ( Reported) Discontinued Medications Loperamide HCl (Loperamide) 2 MG PO UD (Reported) Discontinued Reason: Course completed Lorazepam (Lorazepam) 0.5 MG PO Q1HR PRN PRN ANXIETY (Reported) Discontinued Reason: Course completed Copies to: End of Report . Kusum Quiroga APRN August 04, 2016 09:06 Rodrigo Nelson MD August 04, 2016 11:41
[2016-08-04] MEDS: LIDOCAINE (LIDODERM) 5% PATCH TOP SCH (10:14)
[2016-08-04] MEDS ORDERED: SODIUM CHLORIDE FLUSH 3 ML SYR ONE (10:24)
[2016-08-04] MEDS: HYDROmorphone 2 MG/ML (DILAUDID) 1 ML SYRINGE IV PRN ×4 (10:27→17:39)
[2016-08-04] MEDS: NS FLUSH 3 ML PRN IV ×2 (12:44→15:17)
--- NOTE | 2016-08-04 14:05 | NUR ---
RESTING WITH EYES OPEN. RESP REG AND UNLABORED. CALM.
--- NOTE | 2016-08-04 14:34 | NUR ---
FAMILY AT BEDSIDE.
--- NOTE | 2016-08-04 15:15 | NUR ---
DISCOMFORT EXPRESSED WITH TURNS. PAIN MED GIVEN. ALERT. RESP REG. FAMILY AT BEDSIDE.
--- NOTE | 2016-08-04 15:25 | NUR ---
INTERMITTENT AUDIBLE GURGLE NOTED BILAT LUNG SOUNDS CLEAR AND DIMINISHED.
--- NOTE | 2016-08-04 21:20 | NUR ---
Many family members in room. Pt. resting in upright position; alert; resp are even and unlabored on 4L of O2 via NC; appears to be in no distress. Additional pillow provided for comfort. Questions by family answered; reassurance given.
[2016-08-04] MEDS: PATCH REMOVAL TOP SCH (21:55)
[2016-08-05] MEDS: NS FLUSH 10 ML PRN IV ×5 (01:54→22:53)
[2016-08-05] MEDS: HYDROmorphone 2 MG/ML (DILAUDID) 1 ML SYRINGE IV PRN ×6 (01:55→22:53)
--- NOTE | 2016-08-05 01:55 | NUR ---
Dilaudid 1 mg IV given for facial expression of discomfort; restlessness. Resp remain even; pt. very warm to the touch; adult diaper currently dry. Will continue to monitor.
--- NOTE | 2016-08-05 05:22 | NUR ---
Dilaudid 1 mg IV given for facial grimacing; appearance of discomfort. Pt. has rested in long intervals tonight and has appeared to be in no distress during those times; resp unlabored although occasionally uneven; 4L of O2 via NC. Pt. has been repositioned and checked for incontinent briefs regularly. NPO status observed. Pillows placed for comfort.
[2016-08-05 07:49] VITALS: BP 132/62
--- NOTE | 2016-08-05 08:30 | NUR ---
Pt resting in bed, eyes open but do not track. Non verbal at this time, though facial grimacing is noted upon turning and changing him. Skin warm, dry, intact. Resprs nonlabored, even on 4L NC. Daughter Katlin at bedside. Lidoderm patches applied to lower back. Daughter denies needs at this time. Bed alarm on for safety.
[2016-08-05] MEDS: LIDOCAINE (LIDODERM) 5% PATCH TOP SCH (09:05)
--- NOTE | 2016-08-05 12:18 | Progress Note (E) ---
Progress Note Subjective: Mr Daly is in bed resting with some intermittent agonal breathing. He is non responsive. Discussed situation briefly with family. They have no questions. OBJECTIVE- PRN per hospice Vital Signs Date Time Temp Pulse Resp B/P Pulse Ox O2 Delivery O2 Flow Rate FiO2 08/05/16 07:49 97.4 86 17 132/62 92 Room air I & O 08/04/16 08/05/16 Cumulative From/Thru 19:00 07:00 08/04/16 09:31 - 08/05/16 06:00 Intake Total 0 ml 0 ml Balance 0 ml 0 ml GEN: Resting eyes closed, will nod at times, non verbal CV: Tachy, regular, II/ systolic murmur. LUNGS: Quite diminished throughout ABD: Soft, NT/ND with normal bowel sounds. EXTR: BLE edema noted INTEG: Venous stasis dermatitis. Warm, dry, well-perfused. NEURO: Non verbal. ASSESSMENT Addy Fragoso is a 80 year old male with multiple medical problems including non small cell lung cancer , COPD, deconditioning Prostate cancer, who had an acute admission on July 21, 2016 for leukocytosis. Extensive workup done and he completed 15 days of antibiotics without any improved in his condition- he continued to show decline and overall prognosis was poor. Family meeting held with his daughters who agreed to hospice eval and this was done. He was accepted to inpatient hospice by [facility] on 08-04-16. He agreed to that as well. * Acute on Chronic Respiratory Failure * COPD with acute exacerbation * Pulmonary Edema * BLE Edema * Deconditioning * Non-Small Cell Lung Cancer * Gout * Diabetes Mellitus Type II: * HTN * Prostate Cancer * Constipation * Iron Deficiency Anemia: * PLAN: Inpatient hospice per [facility]- orders placed- supportive care given. Will give dose of Dilaudid now and follow. * DNR MABEL TO DO August 05, 2016 12:16
[2016-08-05] MEDS: NS FLUSH 3 ML PRN IV ×2 (12:34→20:33)
--- NOTE | 2016-08-05 16:50 | NUR ---
PRN Dilaudid given at this time to maintain a comfortable state. Multiple family members in room. Pt resting comfortably with eyes open. Skin warm, dry, intact. Resprs nonlabored, even on 4L NC. Family members deny needs.
--- NOTE | 2016-08-05 18:58 | NUR ---
Uneventful shift. Skin warm, dry, intact. Resprs nonlabored, even on 4L NC. SL intact. Multiple family members at bedside. Bed alarm on for safety.
[2016-08-05] MEDS: PATCH REMOVAL TOP SCH (21:00)
--- NOTE | 2016-08-05 22:55 | NUR ---
Dilaudid 1 mg IV given for pain; pt. just changed of incontinent void; repositioned for comfort. Several pillows placed for comfort. Respirations are unlabored currently.
--- NOTE | 2016-08-06 06:45 | NUR ---
Pt. had an unremarkable shift; resp are unlabored on 4L of O2 via NC; uneven breathing pattern noted at times. Pt. checked/changed of incontinent voids; skin warm; pt. prefers to not wear a gown. Pillows placed for comfort with heels floating off mattress. NPO status remains. Pt. appears comfortable; no signs of distress.
--- NOTE | 2016-08-06 08:00 | NUR ---
Pt resting in bed, mouth open, eyes open but pt is unresponsive. Skin warm, dry, intact. Resprs nonlabored, even, and retracting on 4L NC. Daughter Katlin at bedside. Daughter denies needs at this time.
[2016-08-06] MEDS: LIDOCAINE (LIDODERM) 5% PATCH TOP SCH (09:00)
[2016-08-06] MEDS: HYDROmorphone 2 MG/ML (DILAUDID) 1 ML SYRINGE IV PRN ×3 (09:54→20:30)
--- NOTE | 2016-08-06 09:54 | NUR ---
PRN Dilaudid given at this time to maintain pt's comfort. Family states that he has appeared quite comfortable the last couple days. Will continue to monitor.
--- NOTE | 2016-08-06 15:43 | NUR ---
PRN Dilaudid given at this time per family's request. Pt rests comfortably in bed at this time. Unresponsive. Resprs nonlabored, even on 4L NC.
--- NOTE | 2016-08-06 15:49 | Progress Note (E) ---
Progress Note S: Pt lying comfortably with eyes slightly open and mouth open. He isn't responsive to voice or touch. GEN: Resting eyes closed, non verbal CV: Tachy, regular, II/ systolic murmur. LUNGS: Quite diminished throughout ABD: Soft, NT/ND with normal bowel sounds. EXTR: BLE edema noted INTEG: Venous stasis dermatitis. Warm, dry, well-perfused. area of redness on medial R heel NEURO: Non verbal. ASSESSMENT Addy Fragoso is a 80 year old male with multiple medical problems including non small cell lung cancer , COPD, deconditioning Prostate cancer, who had an acute admission on July 21, 2016 for leukocytosis. Extensive workup done and he completed 15 days of antibiotics without any improved in his condition- he continued to show decline and overall prognosis was poor. Family meeting held with his daughters who agreed to hospice eval and this was done. He was accepted to inpatient hospice by [facility] on 08-04-16. He agreed to that as well. * Acute on Chronic Respiratory Failure * COPD with acute exacerbation * Pulmonary Edema * BLE Edema * Deconditioning * Non-Small Cell Lung Cancer * Gout * Diabetes Mellitus Type II: * HTN * Prostate Cancer * Constipation * Iron Deficiency Anemia: PLAN: Will continue supportive care through Hospice. Family is present and agrees with current plan. Rodrigo Nelsno MD August 06, 2016 15:49
--- NOTE | 2016-08-06 18:09 | NUR ---
No change in condition this shift. Skin warm, dry, intact. Resprs nonlabored, even on 4L NC. Hospice nurse was here in evening. BP was 60/40. Family in and out of room all day. Family denies needs at this time.
[2016-08-06] MEDS: PATCH REMOVAL TOP SCH (19:29)
[2016-08-06] MEDS: NS FLUSH 3 ML PRN IV (20:30)
[2016-08-07] MEDS: HYDROmorphone 2 MG/ML (DILAUDID) 1 ML SYRINGE IV PRN ×3 (03:13→11:51)
--- NOTE | 2016-08-07 04:19 | NUR ---
2029 Pt is resting in bed, family is at bedside. Request that he have something for pain. This RN gave Dilaudid 2mg SIVP for discomfort. Will continue to monitor. 0313-Pt is resting in bed, family is at bedside, request that pt have something for pain. This RN gave Dilaudid 2mg SIVP for discomfort.
[2016-08-07] MEDS: LIDOCAINE (LIDODERM) 5% PATCH TOP SCH (08:25)
--- NOTE | 2016-08-07 10:14 | NUR ---
Nutrition Follow Up: Patient has been transferred to Hospice care; he is unresponsive and has not eaten in days. Will sign off on nutrition services at this time.
--- NOTE | 2016-08-07 11:06 | NUR ---
Comfort measures are ongoing at this time. Family at the bedside
[2016-08-07] MEDS: NS FLUSH 10 ML PRN IV (11:51)
[2016-08-07] MEDS ORDERED: ARTIFICIAL TEARS OPHTHALMIC OINTMENT 3.5 GM TUBE OU PRN (14:20)
[2016-08-07] MEDS ORDERED: LORazepam ORAL CONCENTRATE 2 MG/ML (ATIVAN) SYR PO/SL PRN (14:20)
[2016-08-07] MEDS ORDERED: BISACODYL 10 MG SUPP (DULCOLAX) PR PRN (14:20)
[2016-08-07] MEDS ORDERED: ONDANSETRON 4 MG (ZOFRAN) ORAL DISSOLVE TAB PO PRN (14:30)
[2016-08-07] MEDS ORDERED: PROMETHAZINE 25 MG (PHENERGAN) SUPP PR PRN (14:30)
--- NOTE | 2016-08-07 14:31 | Progress Note (E) ---
Progress Note SUBJECTIVE Hospice therapies have been effective at controlling symptoms. On exam, daughter and [id number] at bedside. Daughter states he hasn't been responsive at all. Eyes partially open on exam. Gaze is vacant. Does not stir to exam. OBJECTIVE Vital Signs Date Time Temp Pulse Resp B/P Pulse Ox O2 Delivery O2 Flow Rate FiO2 08/05/16 07:49 97.4 86 17 132/62 92 Room air I & O 08/06/16 08/07/16 Cumulative From/Thru 19:00 07:00 08/04/16 09:31 - 08/06/16 19:39 Intake Total 0 ml Balance 0 ml GEN: Obtunded. HEENT: Eyes partially open. Dry oral mucosa. Gaunt facies. CV: Irregular with II/ systolic murmur. PULM: Diminished bilaterally. ABD: Sunken, soft, hypoactive bowel sounds. EXTR: Trace ankle edema. Warm, dry, no mottling. INTEG: Age related changes. Pallor. NEURO: Obtunded. ASSESSMENT Addy Fragoso is a 80 year old male admitted to hospice 08/04. He has underlying lung cancer and had opted not to pursue further testing or treatment. He had been hospitalized here 07/21-08/04 for a multitude of issues including SIRS, possible sepsis, leukocytosis, delirium, COPD with exacerbation, FRANCISCO, and others. PLAN * Acute on Chronic Respiratory Failure: Oxygen * Pain, Air Hunger: Hydromorphone. Trial of oral morphine. * Anxiety: Lorazepam * Dry Eye: Artificial tears. * Nausea: None at present. Ondansetron SL, promethazine WI. * F/E/N: NPO. Peripheral IV. Will not restart if lost. * Code Status: DNR * Dispo: Hospice. OTHER ISSUES * COPD with acute exacerbation * Non-small cell lung cancer * Diabetes Mellitus Type II * Prostate cancer * Iron deficiency anemia ALEAH BARRIENTOS MD August 07, 2016 14:31
--- NOTE | 2016-08-07 14:34 | NUR ---
MULTIDISCIPLINARY MTG/DR. BARRIENTOS: Pt. continues to receive comfort cares through hospice. Pt. has not been responsive for 24 hours. No discharge needs identified at this time.
--- NOTE | 2016-08-07 18:24 | NUR ---
Comfort measures continue to be in process. No apparent distress at this time. Family at the bedside for the majority of the shift.
--- NOTE | 2016-08-07 19:11 | NUR ---
report given to Alexa STEVENS and care relinquished
--- NOTE | 2016-08-07 20:04 | NUR ---
Pt is laying in bed with head elevated, on 4L NC SPO2 97%. 2 visitors present
[2016-08-07] MEDS: morphine ORAL CONC 20 MG/ML (ROXANOL) 1 ML SYRINGE SL PRN (21:34)
--- NOTE | 2016-08-07 21:35 | NUR ---
Prn Roxanol administered prior to repositioning for discomfort. Patient has furrowed brows, grimaces with repositioning.
[2016-08-08] MEDS: morphine ORAL CONC 20 MG/ML (ROXANOL) 1 ML SYRINGE SL PRN ×3 (06:43→19:58)
--- NOTE | 2016-08-08 06:43 | NUR ---
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 skin pale, eyes half opened unreactive, mouth opened, oral mucosa dry, O2 4 L/nc, respirations shallow and 24-28, prn Roxanol 0.5 ml given for moaning grimacing with repositioning and furrowed brows.
--- NOTE | 2016-08-08 07:30 | NUR ---
Patient remains unresponsive in bed upon shift assessment. Eyes slightly open but does not respond to stimuli. No apparent signs of pain or distress. 4L of 02 intact per nc. Respirations shallow and tachy. Mottling noted to BLE and ears. Oral and skin care performed. Will continue to monitor.
--- NOTE | 2016-08-08 08:15 | NUR ---
RODNEY Chavez from [facility] here. Daughter at bedside. No new orders received.
--- NOTE | 2016-08-08 10:20 | NUR ---
PRN Roxanol provided for facial grimacing.
--- NOTE | 2016-08-08 10:41 | Progress Note (E) ---
Progress Note SUBJECTIVE Effective comfort achieved with oral morphine. Reportedly had some grimacing with position changes this early AM. OBJECTIVE Vital Signs Date Time Temp Pulse Resp B/P Pulse Ox O2 Delivery O2 Flow Rate FiO2 08/05/16 07:49 97.4 86 17 132/62 92 Room air I & O 08/07/16 08/08/16 Cumulative From/Thru 19:00 07:00 08/04/16 09:31 - 08/07/16 20:00 Intake Total 0 ml Balance 0 ml GEN: Obtunded. Does not respond to exam. HEENT: Eyes partially open. Pupils somewhat constricted, not reactive to light. Dry oral mucosa. Gaunt facies. CV: Irregular with II/ systolic murmur. PULM: Diminished bilaterally. Respirations more rapid, shallow. ABD: Sunken, soft, hypoactive bowel sounds. EXTR: Trace ankle edema. Warm, dry, no mottling. INTEG: Age related changes. Pallor. NEURO: Obtunded. ASSESSMENT Addy Fragoso is a 80 year old male admitted to hospice 08/04. He has underlying lung cancer and had opted not to pursue further testing or treatment. He had been hospitalized here 07/21-08/04 for a multitude of issues including SIRS, possible sepsis, leukocytosis, delirium, COPD with exacerbation, FRANCISCO, and others. PLAN * Acute on Chronic Respiratory Failure: Oxygen * Pain, Air Hunger: Hydromorphone. Trial of oral morphine. * Anxiety: Lorazepam * Dry Eye: Artificial tears. * Nausea: None at present. Ondansetron SL, promethazine ND. * F/E/N: NPO. Peripheral IV. Will not restart if lost. * Code Status: DNR * Dispo: Hospice. OTHER ISSUES * COPD with acute exacerbation * Non-small cell lung cancer * Diabetes Mellitus Type II * Prostate cancer * Iron deficiency anemia ALEAH BARRIENTOS MD August 08, 2016 10:41
--- NOTE | 2016-08-08 17:51 | NUR ---
Gail, manager social media with [facility] here to see patient. Patient status unchanged throughout day shift. Roxanol provided on one occasion. No apparent pain or distress at this time. Respirations shallow and even. Both daughters at bedside. Will continue to monitor.
[2016-08-09] MEDS: morphine ORAL CONC 20 MG/ML (ROXANOL) 1 ML SYRINGE SL PRN ×2 (01:32→09:16)
--- NOTE | 2016-08-09 09:16 | NUR ---
PRN Roxanol given at this time to maintain comfort. Daughter Seema at bedside. Kathy, welder repair here. Pt is responsive at this time. Eyes partially open. Does not respond to stimuli. Skin warm, dry, intact. Resprs retracting, shallow, slightly tachy on 4L NC. Pt appears comfortable. No brow furrowing. Daughter denies needs.
--- NOTE | 2016-08-09 09:32 | Progress Note (E) ---
Progress Note SUBJECTIVE No issues reported overnight. Oral meds seem effective for patient comfort. OBJECTIVE Vital Signs Date Time Temp Pulse Resp B/P Pulse Ox O2 Delivery O2 Flow Rate FiO2 08/05/16 07:49 97.4 86 17 132/62 92 Room air I & O 08/08/16 08/09/16 Cumulative From/Thru 19:00 07:00 08/04/16 09:31 - 08/08/16 23:35 Intake Total 0 ml Balance 0 ml GEN: Obtunded. Does not respond to exam. HEENT: Eyes partially open. Pupils somewhat constricted, not reactive to light. Dry oral mucosa. Gaunt facies. CV: Irregular with II/ systolic murmur. PULM: Diminished bilaterally. Respirations rapid, shallow. ABD: Sunken, soft, hypoactive bowel sounds. EXTR: Trace ankle edema. Warm, dry, no mottling. INTEG: Age related changes. Pallor. NEURO: Obtunded. ASSESSMENT Addy Fragoso is a 80 year old male admitted to hospice 08/04. He has underlying lung cancer and had opted not to pursue further testing or treatment. He had been hospitalized here 07/21-08/04 for a multitude of issues including SIRS, possible sepsis, leukocytosis, delirium, COPD with exacerbation, FRANCISCO, and others. PLAN * Acute on Chronic Respiratory Failure: Oxygen * Pain, Air Hunger: Hydromorphone. Trial of oral morphine. * Anxiety: Lorazepam * Dry Eye: Artificial tears. * Nausea: None at present. Ondansetron SL, promethazine [place]. * F/E/N: NPO. Peripheral IV. Will not restart if lost. * Code Status: DNR * Dispo: Hospice. Always difficult to predict, but likely to pass away sometime in the next 24-48 hours. OTHER ISSUES * COPD with acute exacerbation * Non-small cell lung cancer * Diabetes Mellitus Type II * Prostate cancer * Iron deficiency anemia * FRANCISCO ALEAH BARRIENTOS MD August 09, 2016 09:32
--- NOTE | 2016-08-09 11:13 | NUR ---
Daughter called staff to room stating it looked like he was having a slightly harder time breathing. TEACHER SPECIALIST and this nurse entered room; agreed with daughter's observation. Upon retrieving SL Roxanol and returning to room, respirations had ceased. No heartbeat auscultated. Blobreezy and Jami Davison RN notified for verification. Slight twitch noted in pt's abd. TOD called at 1110. Verified by this nurse and Jami Davison RN. Daughter Seema at bedside. Condolences provided. Hospice notified. Will call [facility] when family is ready. Oxygen turned off and tubing removed.
--- NOTE | 2016-08-09 12:00 | Discharge Summary (E) ---
Discharge Summary (E) Admit Date/Time August 04, 2016 at 08:35 Discharge Date/Time August 09, 2016 Admitting Provider Rodrigo Nelson MD Primary Care Provider James Ortega MD Attending Provider Rodrigo Nelson MD, Michael MD Consulting Provider History and Present Illness Addy Fragoso is a 80 year old male admitted to hospice 08/04. He has underlying lung cancer and had opted not to pursue further testing or treatment. He had been hospitalized here 07/21-08/04 for a multitude of issues including SIRS, possible sepsis, leukocytosis, delirium, COPD with exacerbation, FRANCISCO, and others. He was kept comfortable with hospice protocols. He at 11:10 2016. Hospital Course and Treatment * Acute on Chronic Respiratory Failure: Oxygen * Pain, Air Hunger: Hydromorphone IV. Oral morphine. * Anxiety: Lorazepam * Dry Eye: Artificial tears. * Nausea: Ondansetron SL, promethazine [place]. None were needed in hospice. OTHER ISSUES * COPD with acute exacerbation * Non-small cell lung cancer * Diabetes Mellitus Type II * Prostate cancer * Iron deficiency anemia * FRANCISCO Discharge Physicial Exam General . Discharge Disposition Body released to [facility]. Discharge Diagnosis See list above. Problems: Copies to: End of Report . ALEAH BARRIENTOS MD August 09, 2016 12:00
--- NOTE | 2016-08-09 14:00 | NUR ---
Daughter from out of town arrived around 1330. Family states they are ready to call the home. Geraldo notified at this time.
--- NOTE | 2016-08-09 14:30 | NUR ---
[facility] here to transport body. Dismissed at this time. Dentures sent with patient. All other belongings sent with family.
== END 2016-08-09 14:30 | disposition expired | DRG 180 ==
LOC: MED/SURG 08:35
PROVIDERS: ADMIT Family Medicine; ATTEND Family Medicine
DX: C34.90 Malignant neoplasm of unspecified part of unspecified bronchus or lung (principal); J96.20 Acute and chronic respiratory failure, unspecified whether with hypoxia or hypercapnia; J44.1 Chronic obstructive pulmonary disease with (acute) exacerbation; N17.9 Acute kidney failure, unspecified; F41.9 Anxiety disorder, unspecified; Z51.5 Encounter for palliative care; R11.0 Nausea; E11.9 Type 2 diabetes mellitus without complications; C61 Malignant neoplasm of prostate; D50.9 Iron deficiency anemia, unspecified; I10 Essential (primary) hypertension; Z66 Do not resuscitate